=== PATIENT | female | born 1935 | race Caucasian/White ===

== ENCOUNTER 2016-11-25 11:09 | Observation (INO) | payer MEDICARE ==
--- NOTE | 2016-11-25 14:58 | RAD ---
HISTORY: Weakness COMPARISONS: April 10, 2014 VIEWS:1: Single frontal portable view of the chest at 2:46 PM FINDINGS: LINES AND TUBES: None. CARDIOMEDIASTINAL SILHOUETTE: The cardiomediastinal silhouette is normal for portable technique. PLEURA: The costophrenic angles are sharp. No pleural abnormalities are noted. LUNG PARENCHYMA: The lungs are clear. ABDOMEN: The upper abdomen is clear. There is no subphrenic gas. BONES AND SOFT TISSUES: No bone or soft tissue abnormalities are noted. IMPRESSION: NO ACTIVE CARDIOPULMONARY DISEASE.
[2016-11-25 15:21] LABS: Hematocrit 41 % (35-47); Hemoglobin 13.6 g/dl (12.0-16.0); Mean Corpuscular HGB Conc 33 g/dl (31-36); Mean Corpuscular Hemoglobin 31 pg (27-31); Mean Corpuscular Volume 93 fL (80-97); Mean Platelet Volume 8 um3 (7.4-10.4); Red Blood Count 4.42 10^6/ul (4.0-5.4); Red Cell Distribution Width 13 % (10.5-15); White Blood Count 7.1 10^3/ul (3.5-10.8)
[2016-11-25 15:27] LABS: Add Diff/Slide Review? Slide Review Added; Comments Flag Yes
[2016-11-25 15:39] LABS: Troponin I 0.01 ng/mL (<0.04)
--- NOTE | 2016-11-25 15:39 | RAD ---
INDICATION: Dizziness COMPARISON: CT brain March 17, 2015 TECHNIQUE: Noncontrast axial source images were acquired from the skull base to the vertex. FINDINGS: Ventricles/sulci: There is cortical atrophy with compensatory dilatation of the CSF spaces. Brain parenchyma: There is periventricular and subcortical white matter change compatible with chronic ischemia. There is a small right basal ganglia lacunar type infarct, unchanged. Intracranial hemorrhage:None. Extra-axial spaces: There are no abnormal extra axial fluid collections or evidence of extra-axial mass. Calvarium: There is no calvarial fracture or other calvarial abnormality. Scalp: There is no evidence of scalp or extracalvarial soft tissue abnormality. Paranasal sinuses/mastoid: The paranasal sinuses and mastoid air cells are clear. Other: None. IMPRESSION: CORTICAL ATROPHY WITH CHRONIC MICROVASCULAR ISCHEMIC CHANGES. NO ACUTE FINDINGS.
[2016-11-25 15:40] LABS: Albumin 4.4 g/dL (3.2-5.2); BUN/Creatinine Ratio 19.3 (8-20); Calcium 10.2 mg/dL (8.6-10.3); EGFR African American 85.3 (>60); EGFR Non-African American 66.3 (>60); Globulin 2.9 g/dL (2-4); Magnesium 1.8 mg/dL (1.9-2.7); Potassium 4.2 mmol/L (3.5-5.0); Total Protein 7.3 g/dL (6.4-8.9)
[2016-11-25 15:52] LABS: Urine Bacteria 3+ (Absent); Urine Bilirubin Negative (Negative); Urine Glucose Negative (Negative); Urine Nitrite Negative (Negative)
[2016-11-25 16:00] LABS: TSH (Thyroid Stimulating Horm) 0.18 mcIU/mL (0.34-5.60)
[2016-11-25] MEDS ORDERED: NS 0.9% 1000 ML*IV.FLUID IV ONE (16:06)
[2016-11-25] MEDS ORDERED: traZODone TAB* 50 MG TAB PO PRN (17:11)
[2016-11-25 17:48] LABS: Free T4 1.42 ng/dL (0.61-1.12)
--- NOTE | 2016-11-25 18:01 | ED ---
Travis Valle Billy, scribed for Juan Alberto Branch MD on 11/25/16 at 1446 . Dizziness - HPI Summary HPI Summary: Patient is a 81 year-old female coming to [facility] complaining that she "just does not feel like" herself since yesterday afternoon. She was running errands around the house during the onset of her symptoms. She complains of fatigue and dizziness/lightheadedness. Denies any chest pain, palpitations, or SOB. Denies any black/tarry stools or hematemesis. - History Of Current Complaint Chief Complaint: EDDizziness Stated Complaint: LIGHT HEADED , HIGH BLOOD PRESSURE Time Seen by Provider: 11/25/16 14:40 Hx Obtained From: Patient Timing: Constant Severity Initially: Moderate Severity Currently: Moderate Character: Lightheaded, Dizzy Aggravating Factor(s): Nothing Alleviating Factor(s): Nothing Associated Signs And Symptoms: Negative: Chest Pain, SOB, Palpitations - Allergies/Home Medications Allergies/Adverse Reactions: Allergies Allergy/AdvReac Type Severity Reaction Status Date / Time Meperidine [From Demerol HCl] Allergy Agitation Verified 03/17/15 10:05 Penicillins Allergy Difficulty Verified 03/17/15 10:05 Breathing Red Dye Allergy Hives Verified 03/17/15 10:05 Sulfa Drugs Allergy Hives Verified 03/17/15 10:05 Home Medications: Home Medications Alendronate (NF) [Fosamax (NF)] 70 mg PO WEEKLY 11/25/16 [History Confirmed ] Atorvastatin* [Lipitor*] 40 mg PO DAILY 11/25/16 [History Confirmed 11/25/16] Lisinopril TAB* [Prinivil TAB*] 20 mg PO DAILY 11/25/16 [History Confirmed 11/25] Metoprolol Succinate XL TAB* [Toprol XL TAB*] 25 mg PO DAILY 11/25/16 [History Confirmed 11/25/16] Multivitamins/Minerals TAB* [Theragran/minerals TAB*] 1 tab PO DAILY 11/25/16 [ History Confirmed 11/25/16] Omeprazole CAP* [Prilosec CAP* 20 MG] 20 mg PO DAILY 11/25/16 [History Confirmed 11/25/16] amLODIPine TAB* [Norvasc 5 mg TAB*] 5 mg PO DAILY 11/25/16 [History Confirmed ] traZODone TAB* [Desyrel TAB*] 50 mg PO BEDTIME PRN 11/25/16 [History Confirmed 11/25/16] PMH/Surg Hx/FS Hx/Imm Hx Endocrine/Hematology History: Reports: Hx Thyroid Disease - hypothyroid Denies: Hx Anticoagulant Therapy, Hx Diabetes, Hx Systemic Lupus Erythematosus Cardiovascular History: Reports: Other Cardiovascular Problems/Disorders - low blood pressure Denies: Hx Congestive Heart Failure, Hx Hypertension, Hx Pacemaker/ICD Respiratory History: Denies: Hx Asthma, Hx Chronic Obstructive Pulmonary Disease (COPD) GI History: Reports: Hx Gastroesophageal Reflux Disease, Other GI Disorders - diverticulitis, GERD, BENIGN NEOPLASM COLON,APPENDICITIS History: Reports: Hx Kidney Stones, Other Problems/Disorders - URETERAL sling per pt. 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 Mother with ovarian cancer. - Social History Alcohol Use: Rare Substance Use Type: Reports: None Smoking Status (MU): Never Smoked Tobacco Review of Systems Positive: Fatigue Negative: Palpitations, Chest Pain Negative: Shortness Of Breath Neurological: Other - dizziness, lightheaded All Other Systems Reviewed And Are Negative: Yes Physical Exam Triage Information Reviewed: Yes Vital Signs On Initial Exam: Initial Vitals Temp Pulse Resp BP Pulse Ox 97.8 F 98 18 176/76 98 11/25/16 11:10 11/25/16 11:10 11/25/16 11:10 11/25/16 11:10 11/25/16 11:10 Vital Signs Reviewed: Yes Appearance: Positive: Well-Appearing, No Pain Distress Skin: Positive: Warm Head/Face: Positive: Normal Head/Face Inspection ENT: Positive: Normal ENT inspection Neck: Positive: Supple, Nontender Respiratory/Lung Sounds: Positive: Clear to Auscultation, Breath Sounds Present Cardiovascular: Positive: Normal, RRR. Negative: Murmur Abdomen Description: Positive: Nontender Musculoskeletal: Positive: Normal, Strength/ROM Intact Neurological: Positive: Normal, Sensory/Motor Intact, Alert, Oriented to Person Place, Time, CN Intact II-III Diagnostics - Vital Signs Vital Signs Temp Pulse Resp BP Pulse Ox 11/25/16 13:00 97.7 F 86 14 144/61 99 11/25/16 11:10 97.8 F 98 18 176/76 98 - Laboratory Result Diagrams: 11/25/16 15:10 11/25/16 15:10 Lab Statement: Any lab studies that have been ordered have been reviewed, and results considered in the medical decision making process. - Radiology CXR Xray Interpretation: No Acute Changes Radiology Interpretation Completed By: Radiologist - CT brain CT Interpretation Completed By: Radiologist - CORTICAL ATROPHY WITH CHRONIC MICROVASCULAR ISCHEMIC CHANGES. NO ACUTE FINDINGS. - EKG 1125 EKG Interpretation: NSR 99 bpm, LBBB EKG Comparison: Other - new LBBB compared to 03/17/15 Dizzy Course/Dx - Course Course Of Treatment: 81 yr old with dizziness, and new LBBB. She has not had CP or SOB or palpitations. Onset of symptoms a day ago. Await hospitalist for admission. - Diagnoses Provider Diagnoses: Dizziness, Left bundle branch block (LBBB) on electrocardiogram Discharge - Discharge Plan Condition: Stable Disposition: ADMITTED TO [facility] The documentation as recorded by the Travis leyva Billy accurately reflects the service I personally performed and the decisions made by , Juan Alberto Branch MD.
[2016-11-25 18:50] LABS: Total T3 1.24 ng/mL (0.87-1.78)
--- NOTE | 2016-11-25 20:18 | HP ---
HISTORY AND PHYSICAL: DATE OF ADMISSION: 11/25/16 TIME OF EVALUATION: 4:45 p.m. PRIMARY CARE PHYSICIAN: Dr. Aquino. DIGITAL COMMUNICATIONS MANAGER: Dr. Bryan. CHIEF COMPLAINT: Tremors. HISTORY OF PRESENT ILLNESS: Ms. Pacheco is a 81-year-old lady with past medical history of hypertension, hyperlipidemia, hypothyroidism, GERD, diverticulitis, duodenal ulcers that presented to the emergency room with complaints of not feeling well. She states that last night she tried to go to bed and she was feeling anxious and her body was not "working right." She was shaky and did not sleep well. She woke up this morning, measured her blood pressure and the systolic was in the 170s and her heart rate was 110. She was still feeling shaky. She went to have breakfast and this sensation of not feeling well persisted. She denies chest pain or shortness of breath. She denies fever, chills, sore throat, cough, shortness of breath, urinary complaints. She did have some diarrhea last night and this morning, what is unusual for her. The patient states that 2 months ago, Dr. Aquino increased her levothyroxine dose from 88 to 100 mcg and he also recommended she lose some weight and she has lost 15 pounds, although she is saying she did not change her diet that much to justify all the weight loss. She states Dr. Bryan told her she has a "leaky valve" and she does not need surgery at this point. He is just planning to follow her up. The last echo was during the fall. PAST MEDICAL HISTORY: 1. Hypertension. 2. Hyperlipidemia. 3. GERD. 4. Hyperthyroidism. 5. Diverticulosis. 6. Duodenal ulcer. MEDICATIONS: 1. Alendronate 70 mg p.o. weekly. 2. Amlodipine 5 mg p.o. daily. 3. Aspirin 81 mg p.o. daily. 4. Atorvastatin 40 mg p.o. daily. 5. Levothyroxine 100 mcg p.o. daily. 6. Lisinopril 20 mg p.o. daily. 7. Metoprolol succinate 25 mg p.o. daily. 8. Multivitamin 1 tablet p.o. b.i.d. 9. Omeprazole 20 mg p.o. daily. 10. Trazodone 50 mg p.o. at bedtime as needed for insomnia. ALLERGIES: With MEPERIDINE, the patient had agitation. With PENICILLIN, she had difficulty breathing. With RED DYE and SULFA, she had hives. FAMILY HISTORY: The patient's mother in her 90s of renal failure. Father in his 80s with history of coronary artery disease, status post CABG and he also had brain tumor. She has 2 sisters and 2 brothers that are alive and well. SOCIAL HISTORY: There is no history of tobacco, alcohol or drug use. Surrogate decision maker is her daughter, Chelly Beverly, phone number is [phone]. REVIEW OF SYSTEMS: A 14-point review of systems was performed and all the pertinent negative and positive findings are in the HPI. PHYSICAL EXAMINATION GENERAL: The patient is a pleasant elderly lady, sitting up in the ED stretcher , in no acute distress. VITAL SIGNS: Temperature 98.4, heart rate is 81, respiratory rate 18, oxygen saturation 92% on room air, blood pressure is 151/50. HEENT: Pupils are equal. Moist mucous membranes. CHEST: Breath sounds present bilaterally. No added sounds. CVS: Normal S1, S2. Regular rate and rhythm. ABDOMEN: Soft, nontender. Bowel sounds are present. EXTREMITIES: No edema. NEUROLOGIC: She is alert, awake and oriented x3. She is able to move all 4 extremities. LABORATORY AND IMAGING DATA: The patient had a CBC that was unremarkable except for lymphopenia 13.1, 3.4% basophils. INR is 0.98. Chemistry showed a low chloride of 100, glucose of 104, magnesium 4.8, and her TSH was 0.18. Urinalysis showed 1+ LE with squamous epithelial cells present and 3+ bacteria. Chest x-ray showed no active cardiopulmonary disease. Her EKG showed sinus rhythm at 99 beats per minute with left bundle branch block and this left bundle branch block is new when compared to her prior EKG from March 2015. ASSESSMENT AND PLAN: Ms. Pacheco is a 81-year-old lady with past medical history of hypertension, hyperlipidemia, gastroesophageal reflux disease, hypothyroidism, diverticulosis, duodenal ulcers who presented to the emergency room with complaints of tremors, high blood pressure, tachycardia, diarrhea, weight loss in the setting of recent increase of her thyroid medication. 1. Hyperthyroidism. I believe her symptoms are secondary to medication- induced hyperthyroidism. I am going to check her free T4 and T3 levels and the plan is to decrease her levothyroxine to 88 mcg. 2. New EKG changes. The changes are new but compared to an EKG from 2 years ago. She will be observed in telemetry and I am going to obtain records from Dr. Bryan, but I believe this left bundle branch has been present before. She will be admitted as observation to the CDU, so we can make further decisions , but I believe she will probably be discharged earlier tomorrow morning. 3. Hypertension. We will continue metoprolol, amlodipine, lisinopril. 4. Hyperlipidemia. We will continue atorvastatin. 5. History of duodenal ulcer. We will continue omeprazole. 6. DVT prophylaxis. The patient has a score of 3 on the DVT Prophylaxis Risk Assessment Guide and she will be started on subcutaneous heparin. 7. Code status is full. TIME SPENT: Approximately 50 minutes were spent with the patient and family interview, medical records review, physical examination to complete this admission, more than half the time was spent [id number] with the patient in coordination of care. CC: Dr. Aquino; Dr. Bryan* [id number] #: [id number] MTDD
[2016-11-25] MEDS ORDERED: CALCIUM PO SCH (21:00)
[2016-11-25] MEDS ORDERED: MULTIPLE VITAMINS PO SCH (21:00)
[2016-11-25] MEDS: Heparin VIAL(*) 5000 UNITS/ML VIAL (FIVE THOUSAND) SUBCUT SCH (22:05)
[2016-11-26] MEDS ORDERED: Acetaminophen TAB* 325 MG PO PRN (01:52)
[2016-11-26] MEDS: Heparin VIAL(*) 5000 UNITS/ML VIAL (FIVE THOUSAND) SUBCUT SCH (05:51)
[2016-11-26] MEDS ORDERED: Levothyroxine TAB* 88 MCG TAB PO SCH (06:00)
[2016-11-26] MEDS ORDERED: Omeprazole CAP* 20 MG PO SCH (07:30)
[2016-11-26 08:11] VITALS: BP 148/56
[2016-11-26] MEDS ORDERED: Lisinopril TAB* 10 MG PO SCH (09:00)
[2016-11-26] MEDS ORDERED: Aspirin Low Dose CHEW TAB* 81 MG PO SCH (09:00)
[2016-11-26] MEDS ORDERED: Metoprolol Succinate XL TAB* 25 MG PO SCH (09:00)
[2016-11-26] MEDS ORDERED: Multivitamins ADULT w/MIN LIQ* 15 ML UDC PO SCH (09:00)
[2016-11-26] MEDS ORDERED: amLODIPine TAB* 5 MG PO SCH (09:00)
[2016-11-26] MEDS ORDERED: Atorvastatin* 40 MG TAB PO SCH (09:00)
--- NOTE | 2016-11-27 16:29 | DS ---
CC: Pedro Aquino MD; PEDRO Diane DISCHARGE SUMMARY: DATE OF ADMISSION: 11/25/16 DATE OF DISCHARGE: 11/26/16 PRIMARY CARE PROVIDER: Pedro Aquino MD NON LINEAR EDITOR: PEDRO Diane. DISCHARGE DIAGNOSIS: Medication induced hyperthyroidism. SECONDARY DIAGNOSES: 1. Hypertension. 2. Hyperlipidemia. 3. Gastroesophageal reflux disease. 4. Prior history of Graves' disease. 5. Diverticulosis. 6. Duodenal ulcer. 7. Left bundle branch block. 8. Benign colonic polyps. 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 10. Osteoporosis. 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 12. Moderate aortic insufficiency. MEDICATION LIST: 1. Trazodone 50 mg p.o. bedtime as needed for insomnia. 2. Omeprazole 20 mg p.o. daily. 3. Lisinopril 20 mg p.o. daily. 4. Multivitamin 1 tablet p.o. daily. 5. Multivitamin with calcium 1 tablet chew twice a day. 6. Atorvastatin 20 mg p.o. daily. 7. Aspirin 81 mg p.o. daily. 8. Amlodipine 5 mg p.o. daily. 9. Alendronate 70 mg p.o. weekly. 10. Metoprolol succinate 25 mg p.o. daily. MEDICATION CHANGE: Levothyroxine dose was decreased from 100 to 88 mg daily. HOSPITAL COURSE: Mrs. Pacheco is a 81-year-old lady with past medical history as stated above that p resented to the emergency room on November 25 with complaints of not feeling well, palpitations, and tremors. For more details of our presentation, I refer to her history and physical. The impression was that her symptoms were likely associated with medication induced hyperthyroidism as her Synthroid dose had been increased recently. Her TSH was low at 0.18, free T4 was elevated at 1.42 and total T3 was normal at 1.24. The plan is to decrease her levothyroxine dose to 88 mcg and to repeat her thyroid function tests in four weeks to see if her dose still needs more adjustment. The patient was found to have a "new" left bundle branch block when compared to her last EKG on our system in 2014. We obtained records from Dr. Meza's office and actually this left bundle bran ch block had been present since 2016. His note states that the patient had an intermittent incomple te LBB in the past and given that she was completely asymptomatic and had evidence of a gradual prog ression with no decline in LV function or regional wall motion abnormalities on echo. He did not be lieve that she needed evaluation for an ischemic cause of her left bundle branch block. He left quin t the best management would be to continue to monitor her symptoms and echo and presume that this is age related conduction system disease. The patient had improvement of her symptoms overnight. Her heart rate was in the 60s after receiving her metoprolol and she felt well enough to go home to [facility] with Dr. Aquino as outpatient. PHYSICAL EXAMINATION: Vital Signs: Temperature 97.8, heart rate is 71, respiratory rate is 18, oxy gen saturation is 92% on room air, blood pressure is 148/66. General: The patient is a pleasant [place] lady sitting up in bed in no acute distress. CVS: Normal S1, S2. Regular rate and rhythm. Chest: Breath sounds bilaterally, no added sounds. Extremities: No edema. Neuro: She is alert, awake, oriented x3, able to move all 4 extremities. DIET: Heart healthy diet. ACTIVITY: As tolerated. DISPOSITION: To home. STATUS WHILE IN THE HOSPITAL: Observation. Please keep in mind that this is a summarized version of this patient complex hospital stay. If you need more information, please feel free to call me at or please obtain the full medic al records. TIME SPENT: Approximately 45 minutes was spent to complete this discharge. [id number]/[facility] #: [id number]
== END 2016-11-26 10:27 | disposition home or self-care (01) ==
LOC: ED 11:09 → MEDTELE 17:05
PROVIDERS: ADMIT Internal Medicine; ATTEND Internal Medicine
DX: E05.80 Other thyrotoxicosis without thyrotoxic crisis or storm (principal); T38.1X5A Adverse effect of thyroid hormones and substitutes, initial encounter; Y92.9 Unspecified place or not applicable; I10 Essential (primary) hypertension; E78.5 Hyperlipidemia, unspecified; K21.9 Gastro-esophageal reflux disease without esophagitis; K57.90 Diverticulosis of intestine, part unspecified, without perforation or abscess without bleeding; I44.7 Left bundle-branch block, unspecified; Z86.010 Personal history of colon polyps; M81.0 Age-related osteoporosis without current pathological fracture; I35.1 Nonrheumatic aortic (valve) insufficiency; Z79.82 Long term (current) use of aspirin; Z79.899 Other long term (current) drug therapy; Z88.0 Allergy status to penicillin; Z88.2 Allergy status to sulfonamides; Z88.8 Allergy status to other drugs, medicaments and biological substances
CPT/HCPCS: 36415; 70450; 71010; 80053; 81003; 81015; 83605; 83735; 84439; 84443; 84479; 84484; 85025; 85610; 87086; 93005; 96360; 96372; 99283; A9270-GY; G0378; J1644

== ENCOUNTER 2017-09-17 10:57 | Observation (INO) | payer MEDICARE ==
[2017-09-17] MEDS ORDERED: NS 0.9% 1000 ML* 1,000 ML IV ONE (12:17)
[2017-09-17 13:17] LABS: Urine Appearance Clear; Urine Blood 1+ (Negative); Urine Color Yellow; Urine Ketones Negative (Negative); Urine Protein Negative (Negative); Urine Specific Gravity 1.005 (1.010-1.030); Urine Urobilinogen Negative (Negative)
[2017-09-17 13:30] LABS: ABS Basophils 0.1 10^3/ul (0-0.2); ABS Eosinophils 0.1 10^3/ul (0-0.6); ABS Lymphocytes 1.8 10^3/ul (1.0-4.8); ABS Monocytes 1.1 10^3/ul (0-0.8); ABS Neutrophils 8.6 10^3/ul (1.5-7.7); ABS Nucleated RBC 0 10^3/ul; Eosinophil % 0.7 % (0-6); Hematocrit 38 % (35-47); Hemoglobin 12.6 g/dl (12.0-16.0); Lymphocyte % 15.4 % (25-47); Mean Corpuscular HGB Conc 33 g/dl (31-36); Mean Corpuscular Hemoglobin 31 pg (27-31); Mean Corpuscular Volume 93 fL (80-97); Mean Platelet Volume 8 um3 (7.4-10.4); Nucleated Red Blood Cells % 0; Platelet Count 156 10^3/ul (150-450); Red Cell Distribution Width 12 % (10.5-15); White Blood Count 11.5 10^3/ul (3.5-10.8)
[2017-09-17 13:37] LABS: EGFR Non-African American 57.3 (>60)
--- NOTE | 2017-09-17 13:40 | RAD ---
Indication: RIGHT lower quadrant abdominal pain last night. Post appendectomy. History of diverticulitis. Post cholecystectomy. Post ureteral sling. Comparison: November 03, 2013 CT Technique: Supine and upright views of the abdomen. Report: No radiographic evidence for free air. Unremarkable bowel gas pattern. Small volume of stool present within the colon. Negative for significant rectal distention with stool. Gallbladder fossa level surgical clips. Pelvic phleboliths noted. No suspicious calcifications. Unremarkable soft tissue contours without suggestion of mass effect. IMPRESSION: No acute abdominal pelvic pathologic process evident.
--- NOTE | 2017-09-17 14:10 | RAD ---
INDICATION: RIGHT flank pain. Hematuria. Post appendectomy, cholecystectomy, ureteral sling. COMPARISON: November 03, 2013 CT. TECHNIQUE: Multidetector CT images were obtained from the lung bases to the ischial tuberosities. Evaluation of the viscera is limited without IV contrast. Multiplanar reformation. REPORT: Mild bibasilar interstitial fibrosis/honeycombing increased over the prior exam. Post cholecystectomy. Unremarkable unenhanced liver. Moderately atrophic pancreas without suspicious finding. Unremarkable spleen. Negative for CT abnormality of the upper GI or small bowel. The appendix is not visualized consistent with surgical history. Severe colonic diverticulosis at the sigmoid colon. Mural thickening and perienteric inflammatory change at the distal sigmoid colon consistent with acute diverticulitis. No extra enteric gas or perienteric abscess collection evident. Only trace free fluid along the LEFT pelvic sidewall. Negative for free air or significant hernias. Normal adrenal glands. Unremarkable kidneys. Negative for urolithiasis or hydronephrosis. Unremarkable nondilated ureters. Phleboliths noted adjacent to the distal ureters. Unremarkable distended urinary bladder as well as the uterus and adnexal regions. Negative for lymphadenopathy. Atherosclerotic plaque of normal diameter abdominal aorta and iliac arteries. High burden of calcific plaque at the proximal renal arteries. Largely decompressed IVC indicating low volume state. 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 Negative for fracture. IMPRESSION: 1. The constellation of findings is most consistent with acute diverticulitis of the sigmoid colon. Negative for associated perienteric abscess collection or resulting bowel obstruction. CT or colonoscopy follow-up after therapy suggested to assess for resolution and exclude an underlying colon carcinoma. 2. Negative for obstructive uropathy. 3. Mild bibasilar interstitial fibrosis/honeycombing increased over the prior exam.
[2017-09-17] MEDS ORDERED: Ciprofloxacin 400MG IVPREMIX(* 400 MG/200 ML BAG IVPB ONE (14:38)
[2017-09-17] MEDS ORDERED: metroNIDAZOLE IV 500 MG/100ML* 500 MG/100 ML BAG IVPB ONE (14:40)
[2017-09-17] MEDS ORDERED: Ondansetron INJ* 2 MG/ML VIAL IV PRN (15:29)
[2017-09-17] MEDS ORDERED: Ketorolac INJ* 15 MG/ML 1 ML VIAL IV PUSH PRN (15:29)
[2017-09-17] MEDS: Acetaminophen TAB* 325 MG PO PRN (17:34)
[2017-09-17] MEDS: Heparin VIAL(*) 5000 UNITS/ML VIAL (FIVE THOUSAND) SUBCUT SCH (21:06)
--- NOTE | 2017-09-17 22:12 | HP ---
CC: Dr. Aquino; Dr. Harding * HISTORY AND PHYSICAL: DATE OF ADMISSION: 09/17/17 PRIMARY CARE PROVIDER: Dr. Aquino. MY ATTENDING WHILE IN THE HOSPITAL: Dr. Louise Infante.* (DICTATED BY PEDRO HARRINGTON) OUTPATIENT PRINTED CIRCUIT LAYOUT TAPER: Darleen Dueñas. CHIEF COMPLAINT: Severe abdominal pain x1 day. HISTORY OF PRESENT ILLNESS: Ms. Pacheco is an 82-year-old female with past medical history significant for hypertension; hyperlipidemia; GERD; diverticulitis; duodenal ulcer; Graves' disease, status post radioactive iodine ; known pancreatic tail cyst, who presents with 1 day of severe abdominal pain in her right upper quadrant radiating down to her suprapubic area and her groin. The patient states that she went out to dinner on , 09/15/17, and felt fine, then in the evening of 09/16/17, the patient was not feeling very good, with general malaise. The patient denies fevers, chills, discrete nausea, or vomiting. The patient had worsening pain in her abdomen without acute onset, not affected by food, no palliating factors, unresponsive to heat, worse with movements especially sudden jolts. The patient had no diarrhea. The patient had diarrhea 2 days ago for a couple of episodes but it resolved by itself without incident. There was no blood in her stool. The patient describes the pain as today stabbing, burning pain that radiates from her right upper quadrant to above her pubic bone and then to her back. The patient denies any recent changes in her diet or fluid intake. The patient states this feels somewhat like her previous episode of diverticulitis. The patient has not taken any medications to help relieve the pain. The patient has not had any sick contacts. The patient feels chilled at the moment but denies any fevers and took her temperature at home and it was not elevated. The patient came to the emergency department due to extreme pain. The patient' s pain is now 5/10 down from 10/10 at its worst. The patient denies chest pain , shortness of breath, or other associated symptoms. The patient was found to have diverticulitis on CT exam while in the hospital and we were asked to evaluate for admission. PAST MEDICAL HISTORY: Hypertension; hyperlipidemia; GERD; diverticulitis; duodenal ulcer; hypothyroidism, status post radioactive iodine, now hypothyroid ; left bundle branch block; moderate aortic insufficiency; pancreatic mass. PAST SURGICAL HISTORY: No past surgeries. MEDICATIONS: 1. Aspirin 81 mg p.o. daily. 2. Lipitor 40 mg p.o. daily. 3. Norvasc 5 mg p.o. daily. 4. Fosamax 70 mg p.o. weekly. 5. Metoprolol 37.5 mg daily. 6. Omeprazole 20 mg p.o. daily. 7. Lisinopril 20 mg p.o. daily. 8. Multivitamin. 9. Levothyroxine 88 mcg p.o. daily. 10. Torsemide 5 mg p.o. as needed for leg swelling. ALLERGIES: MEPERIDINE, PENICILLIN, RED DYE, SULFA. FAMILY HISTORY: The patient's mother in her 90s from kidney failure. The patient's father in his 80s from coronary artery disease, he also had a CABG and malignant brain tumor. The patient has 4 siblings that are alive and well. SOCIAL HISTORY: The patient smoked in her remote past and cannot quantify the amount. The patient does not drink alcohol. There are no illicit drugs. 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 The patient is , has a current significant other, whom she lives with. The patient has 1 child, Chelly Beverly, who is her healthcare proxy. REVIEW OF SYSTEMS: A 14-point review of systems was reviewed and is negative except as the above. PHYSICAL EXAMINATION GENERAL: The patient is an 82-year-old female, who appears younger than stated age, is sitting in bed comfortably, in no acute distress. VITAL SIGNS: Upon arrival to the emergency department, temperature 98.4, pulse rate 79, respiratory rate 16, oxygen saturation 95% on room air, blood pressure 173/69. HEENT: Head: Normocephalic, atraumatic. Sclerae anicteric. No conjunctival injection. Nasal mucosa is moist. Oral mucosa moist. No pharyngeal erythema, discharge, or exudates. NECK: Supple, nontender. No lymphadenopathy. No carotid bruits auscultated. RESPIRATORY: Clear to auscultation bilaterally. No wheezes, rales, or rhonchi. Good air exchange bilaterally. CARDIAC: Regular rate and rhythm. No clicks, murmurs, gallops, or rubs. Murmur of aortic insufficiency not appreciated. ABDOMEN: Soft. Tenderness to palpation in the right upper and lower quadrants as well as the suprapubic area without rebound. No referred rebound. Rovsing sign negative. No hepatosplenomegaly. No abdominal bruits auscultated. NEURO: Cranial nerves II through XII intact. Strength preserved in the upper and lower extremities distally and proximally. Alert and oriented x3. PSYCHIATRIC: Very pleasant and cooperative. SKIN: Clean, dry, intact. No rash. DIAGNOSTIC STUDIES/LAB DATA: White blood cell count 11.5, hemoglobin 12.6, hematocrit 38, platelet count 156. Sodium 133, potassium 4.0, chloride 101, carbon dioxide 24, anion gap 8, BUN 17, creatinine 0.94, glucose 112, calcium 9.1. Total bilirubin 1.2, AST 20, ALT 19, alkaline phosphatase 36. Protein 6.7 , albumin 4.0, globulin 2.7, lipase 13. Urine: Color yellow, clear, +1 blood, +1 leukocyte esterase, urine squamous epithelial cells present, +3 urine bacteria. Abdomen x-ray read as no acute abdominopelvic process present. Abdominal and pelvis CT read as a constellation of findings most consistent with acute diverticulitis of the sigmoid colon, negative for associated peritoneal abscess, question resulting bowel obstruction. CT or colonoscopy suggested to confirm successful resolution to exclude underlying colon carcinoma , negative for obstructive uropathy, mild basilar interstitial fibrosis/ honeycombing increased from the previous exam. ASSESSMENT AND PLAN: Impression: The patient is an 82-year-old female with past medical history significant for diverticulitis, duodenal ulcers, hypertension, hyperlipidemia, and gastroesophageal reflux disease, who presents with abdominal pain and was found to have diverticulitis on abdominal CT exam. The patient will be admitted to observation to the hospital for IV antibiotics, bowel rest, and supportive care. 1. Mild diverticulitis. The patient has no nausea, vomiting, or obstruction associated with it. The patient has no fevers. The patient has mild leukocytosis. The patient has no other significant abnormalities on laboratory studies. The patient, however, is 82 years old with significant medical comorbidities. The patient will have blood cultures drawn and will be started on IV antibiotic of ciprofloxacin 400 mg p.o. b.i.d. and metronidazole 500 mg p.o. b.i.d. The patient will have Tylenol and Toradol for pain control. Continue the patient's home medications while in the hospital. The patient will have clear liquid diet. 2. Hypertension. The patient currently has mildly elevated high blood pressure. The patient is receiving fluids. We will not give anymore fluids and continue to monitor before adjusting the patient's blood pressure medications. The patient has no symptoms of hypertensive urgency or emergency at this time. 3. Hyperlipidemia. Continue the patient's statin. 4. Gastroesophageal reflux disease. Continue omeprazole. 5. Duodenal ulcer. The patient has no evidence of duodenal ulcer on either clinically or abdomen CT. Continue omeprazole. 6. Hypothyroidism. Continue levothyroxine at home dose. 7. FEN. The patient will have a clear liquid diet for bowel rest, advance as tolerated. Due to the patient's leg swelling and hypertension, we will discontinue the patient's fluids after the 1 L she received in the emergency department. 8. Code status. The patient is a full code. The patient would like to discuss being a DNR with her daughter when she comes in. 9. DVT prophylaxis. The patient is a high-risk patient, will have heparin subcu while in the hospital. 10. Disposition. The patient is admitted to observation. Estimated length of stay less than 2 midnights. TIME SPENT: Approximately 60 minutes was spent on this admission, 30 of which was spent [id number] with the patient obtaining history and physical and discussing treatment plan. This plan has been discussed with my attending physician, Dr. Lousie Infante, and she is in agreement. PEDRO HARRINGTON [id number]/[facility] #: [id number] ANDREA
[2017-09-18] MEDS: Acetaminophen TAB* 325 MG PO PRN (03:11)
[2017-09-18] MEDS ORDERED: metroNIDAZOLE IV 500 MG/100ML* 500 MG/100 ML BAG IVPB SCH (03:30)
[2017-09-18] MEDS ORDERED: Ciprofloxacin 400MG IVPREMIX(* 400 MG/200 ML BAG IVPB SCH (04:30)
[2017-09-18] MEDS: Heparin VIAL(*) 5000 UNITS/ML VIAL (FIVE THOUSAND) SUBCUT SCH (05:39)
[2017-09-18] MEDS ORDERED: Levothyroxine TAB* 88 MCG TAB PO SCH (06:00)
[2017-09-18] MEDS ORDERED: Omeprazole CAP* 20 MG PO SCH (07:30)
[2017-09-18] MEDS ORDERED: Lisinopril TAB* 10 MG PO SCH (09:00)
[2017-09-18] MEDS ORDERED: Metoprolol Succinate XL TAB* 25 MG PO SCH (09:00)
[2017-09-18] MEDS ORDERED: Aspirin Low Dose CHEW TAB* 81 MG PO SCH (09:00)
[2017-09-18] MEDS ORDERED: amLODIPine TAB* 5 MG PO SCH (09:00)
[2017-09-18] MEDS ORDERED: Atorvastatin* 40 MG TAB PO SCH (09:00)
[2017-09-18 12:16] VITALS: BP 127/59
--- NOTE | 2017-09-19 07:01 | DS ---
CC: Dr. Harding; Dr. Aquino * DISCHARGE SUMMARY: DATE OF ADMISSION: 09/17/17 DATE OF DISCHARGE: 09/18/17 PRIMARY CARE PROVIDER: Dr. Aquino. DISCHARGE DIAGNOSIS: Acute diverticulitis. SECONDARY DIAGNOSES: 1. Episode of diverticulitis in the past x1. 2. History of hypertension. 3. Hyperlipidemia. 4. Gastroesophageal reflux disease. 5. History of duodenal ulcer. 6. Hypothyroidism. 7. History of left bundle-branch block. 8. History of moderate aortic insufficiency. 9. History of pancreatic mass. MEDICATIONS AT DISCHARGE: Include: 1. Ciprofloxacin 500 mg b.i.d. for 10 days total. 2. Flagyl 500 mg 3 times a day for 10 days total. 3. Fosamax 70 mg weekly. 4. Norvasc 5 mg daily. 5. Aspirin 81 mg daily. 6. Lipitor 40 mg daily. 7. Levothyroxine 88 mcg daily. 8. Prinivil 20 mg daily. 9. Metoprolol succinate 37.5 mg daily. 10. Multivitamin 1 tablet daily. 11. Prilosec 20 mg daily. 12. Demadex 5 mg daily p.r.n. LABORATORY DATA AND STUDIES PERFORMED DURING THE HOSPITAL STAY: Included CT of the abdomen and pelvis obtained at admission, impression: "The constellation of findings are most consistent with acute diverticulitis of the sigmoid colon. Negative for associated perienteric abscess collection resulting in bowel obstruction. CT and colonoscopy followup after therapy to r/o underlying colon carcinoma recommended. Negative for obstructive uropathy. Mild bibasilar interstitial fibrosis/honeycombing increased over the prior exam." PHYSICAL EXAM AT THE TIME OF DISCHARGE: Blood pressure 127/59, heart rate of 81 , respiratory rate 18, oxygen saturation 92% on room air, temperature 97.9. General: This is a very pleasant 82-year-old female who is in no acute distress. Alert, awake, and oriented x3. HEENT: Head: Atraumatic, normocephalic. Eyes: Pupils are equal and reactive to light and accommodation. Oropharynx clear. Mucosa moist. Neck: Supple. No JVD, no bruit bilaterally. Cardiovascular: Regular rate and rhythm. No murmur. Respiratory: Clear to auscultation bilaterally. Abdomen: Soft, minimally tender in the right lower quadrant with no rebound, no guarding. Bowel sounds present in all four quadrants. Extremities: There is no edema. Pulses +2 bilaterally. No clubbing or cyanosis. On neuro evaluation, speech clear. Cranial nerves II through XII grossly intact. Motor strength is 5/5 bilaterally. At discharge, the patient is recommended to follow up with Dr. Aquino in approximately 4 to 7 days and follow up with patient's mule tender within the next month. Patient's mule tender is Dr. Harding from [facility]. [id number]/[facility] #: [id number] [facility] CENTERCasimiro
== END 2017-09-18 13:05 | disposition home or self-care (01) ==
LOC: ED 10:57 → MED 16:24
PROVIDERS: ADMIT Internal Medicine; ATTEND Internal Medicine
DX: K57.92 Diverticulitis of intestine, part unspecified, without perforation or abscess without bleeding (principal); Z86.79 Personal history of other diseases of the circulatory system; E78.5 Hyperlipidemia, unspecified; K21.9 Gastro-esophageal reflux disease without esophagitis; Z87.11 Personal history of peptic ulcer disease; E03.9 Hypothyroidism, unspecified; I44.7 Left bundle-branch block, unspecified; Z85.07 Personal history of malignant neoplasm of pancreas; Z79.82 Long term (current) use of aspirin
CPT/HCPCS: 36415; 74019; 74176; 80053; 81003; 81015; 83690; 85025; 87040; 87086; 96365; 96366; 99283; A9270-GY; G0378; J0744; J1644; J3490

== ENCOUNTER 2018-05-28 20:18 | Emergency (ER) | payer MEDICARE ==
[2018-05-28] MEDS ORDERED: NS 0.9% 1000 ML* 1,000 ML IV ONE (20:38)
[2018-05-28 21:14] LABS: ABS Basophils 0 10^3/ul (0-0.2); ABS Eosinophils 0 10^3/ul (0-0.6); ABS Lymphocytes 0.7 10^3/ul (1.0-4.8); ABS Monocytes 0.6 10^3/ul (0-0.8); ABS Neutrophils 8.6 10^3/ul (1.5-7.7); ABS Nucleated RBC 0 10^3/ul; Eosinophil % 0.4 % (0-6); Hematocrit 40 % (35-47); Hemoglobin 13.6 g/dl (12.0-16.0); Lymphocyte % 6.8 % (25-47); Mean Corpuscular HGB Conc 34 g/dl (31-36); Mean Corpuscular Hemoglobin 32 pg (27-31); Mean Corpuscular Volume 94 fL (80-97); Mean Platelet Volume 8.4 um3 (7.4-10.4); Nucleated Red Blood Cells % 0; Platelet Count 162 10^3/ul (150-450); Red Blood Count 4.29 10^6/ul (4.00-5.40); Red Cell Distribution Width 13 % (10.5-15); White Blood Count 9.9 10^3/ul (3.5-10.8)
[2018-05-28] MEDS ORDERED: Ondansetron INJ* 2 MG/ML VIAL IV ONE (21:16)
[2018-05-28 21:22] LABS: INR 0.97 (0.77-1.02)
[2018-05-28 21:32] LABS: EGFR Non-African American 57.9 (>60)
--- NOTE | 2018-05-28 21:55 | ED ---
GI/ HPI - HPI Summary HPI Summary: 83-year-old female presents with nausea vomiting diarrhea for the past couple hours. She states she recently came [place] from [place]. No one else is sick. She states felt feverous. She had one episode of chest pain that resolved a couple hours ago. She states that it was a dull pain. She states she's been having left lower quadrant pain. No diarrhea. No recent antibiotic use. She denies any shortness breath. She admits to occasional cough. She denies headache. She states feels really weak. She is able to drink fluids but that she has been having multiple episodes of diarrhea throughout the day. Has history of diverticulitis. Has had appendix and gallbladder removed and has adhesion surgery on her abdomen. Has history of high blood pressure and hypothyroidism. - History of Current Complaint Chief Complaint: EDGeneral Time Seen by Provider: 05/28/18 21:03 Stated Complaint: GENERAL(JUST GOT BACK FROM DR) Pain Intensity: 6 - Allergy/Home Medications Allergies/Adverse Reactions: Allergies Allergy/AdvReac Type Severity Reaction Status Date / Time meperidine [From Demerol] Allergy See Comment Verified 05/28/18 20:25 Penicillins Allergy Difficulty Verified 05/28/18 20:25 Breathing red dye Allergy Hives Verified 05/28/18 20:25 Sulfa (Sulfonamide Allergy Hives Verified 05/28/18 20:25 Antibiotics) PMH/Surg Hx/FS Hx/Imm Hx Endocrine/Hematology History: Reports: Hx Thyroid Disease - hypothyroid Denies: Hx Anticoagulant Therapy, Hx Diabetes, Hx Systemic Lupus Erythematosus Cardiovascular History: Reports: Hx Hypercholesterolemia, Hx Hypertension, Other Cardiovascular Problems/Disorders - [facility] 11/25/16 ADMISSION Denies: Hx Congestive Heart Failure, Hx Pacemaker/ICD Respiratory History: Denies: Hx Asthma, Hx Chronic Obstructive Pulmonary Disease (COPD), Hx Pneumonia GI History: Reports: Hx Gall Bladder Disease, Hx Gastroesophageal Reflux Disease , Other GI Disorders - diverticulitis, GERD, BENIGN NEOPLASM COLON, APPENDICITIS History: Reports: Hx Kidney Stones, Other Problems/Disorders - URETERAL sling per pt. 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 Mother with ovarian cancer. - Social History Alcohol Use: None Substance Use Type: Reports: None Smoking Status (MU): Never Smoked Tobacco Review of Systems Negative: Fever Positive: Chest Pain Positive: Cough. Negative: Shortness Of Breath Positive: Abdominal Pain, Vomiting, Diarrhea, Nausea All Other Systems Reviewed And Are Negative: Yes Physical Exam Triage Information Reviewed: Yes Vital Signs On Initial Exam: Initial Vitals Temp Pulse Resp BP Pulse Ox 99.5 F 97 18 98/63 95 05/28/18 20:21 05/28/18 20:21 05/28/18 20:21 05/28/18 20:21 05/28/18 20:21 Vital Signs Reviewed: Yes Appearance: Positive: Well-Appearing Skin: Positive: Warm, Dry Head/Face: Positive: Normal Head/Face Inspection Eyes: Positive: Normal, Conjunctiva Clear ENT: Positive: Pharynx normal Respiratory/Lung Sounds: Positive: Clear to Auscultation, Breath Sounds Present Cardiovascular: Positive: Normal, RRR Abdomen Description: Positive: Nontender, Soft Bowel Sounds: Positive: Present Musculoskeletal: Positive: Normal Neurological: Positive: Normal Psychiatric: Positive: Normal Diagnostics - Vital Signs Vital Signs Temp Pulse Resp BP Pulse Ox 05/28/18 20:21 99.5 F 97 18 98/63 95 - Laboratory Lab Results: Lab Results 05/28/18 05/28/18 05/28/18 Range/Units 21:07 21:07 21:07 WBC 9.9 (3.5-10.8) 10^3/ul RBC 4.29 (4.00-5.40) 10^6/ul Hgb 13.6 (12.0-16.0) g/dl Hct 40 (35-47) % MCV 94 (80-97) fL MCH 32 H (27-31) pg MCHC 34 (31-36) g/dl RDW 13 (10.5-15) % Plt Count 162 (150-450) 10^3/ul MPV 8.4 (7.4-10.4) um3 Neut % (Auto) 86.1 H (38-83) % Lymph % (Auto) 6.8 L (25-47) % [place] % (Auto) 6.3 (0-7) % Eos % (Auto) 0.4 (0-6) % Baso % (Auto) 0.4 (0-2) % Absolute Neuts (auto) 8.6 H (1.5-7.7) 10^3/ul Absolute Lymphs (auto) 0.7 L (1.0-4.8) 10^3/ul Absolute Monos (auto) 0.6 (0-0.8) 10^3/ul Absolute Eos (auto) 0 (0-0.6) 10^3/ul Absolute Basos (auto) 0 (0-0.2) 10^3/ul Absolute Nucleated RBC 0 10^3/ul Nucleated RBC % 0 INR (Anticoag Therapy) 0.97 (0.77-1.02) APTT 27.8 (26.0-36.3) seconds Sodium 136 (135-145) mmol/L Potassium 4.1 (3.5-5.0) mmol/L Chloride 105 (101-111) mmol/L Carbon Dioxide 20 L (22-32) mmol/L Anion Gap 11 (2-11) mmol/L BUN 22 (6-24) mg/dL Creatinine 0.93 (0.51-0.95) mg/dL Est GFR ( Amer) 70.0 (>60) Est GFR (Non-Af Amer) 57.9 (>60) BUN/Creatinine Ratio 23.7 H (8-20) Glucose 139 H (70-100) mg/dL Lactic Acid (0.5-2.0) mmol/L Calcium 9.3 (8.6-10.3) mg/dL Total Bilirubin 0.80 (0.2-1.0) mg/dL AST 30 (13-39) U/L ALT 31 (7-52) U/L Alkaline Phosphatase 40 (34-104) U/L Troponin I 0.01 (<0.04) ng/mL C-Reactive Protein 8.05 H (<8.01) mg/L Total Protein 7.2 (6.4-8.9) g/dL Albumin 4.2 (3.2-5.2) g/dL Globulin 3.0 (2-4) g/dL Albumin/Globulin Ratio 1.4 (1-3) 05/28/18 Range/Units 21:07 WBC (3.5-10.8) 10^3/ul RBC (4.00-5.40) 10^6/ul Hgb (12.0-16.0) g/dl Hct (35-47) % MCV (80-97) fL MCH (27-31) pg MCHC (31-36) g/dl RDW (10.5-15) % Plt Count (150-450) 10^3/ul MPV (7.4-10.4) um3 Neut % (Auto) (38-83) % Lymph % (Auto) (25-47) % [place] % (Auto) (0-7) % Eos % (Auto) (0-6) % Baso % (Auto) (0-2) % Absolute Neuts (auto) (1.5-7.7) 10^3/ul Absolute Lymphs (auto) (1.0-4.8) 10^3/ul Absolute Monos (auto) (0-0.8) 10^3/ul Absolute Eos (auto) (0-0.6) 10^3/ul Absolute Basos (auto) (0-0.2) 10^3/ul Absolute Nucleated RBC 10^3/ul Nucleated RBC % INR (Anticoag Therapy) (0.77-1.02) APTT (26.0-36.3) seconds Sodium (135-145) mmol/L Potassium (3.5-5.0) mmol/L Chloride (101-111) mmol/L Carbon Dioxide (22-32) mmol/L Anion Gap (2-11) mmol/L BUN (6-24) mg/dL Creatinine (0.51-0.95) mg/dL Est GFR ( Amer) (>60) Est GFR (Non-Af Amer) (>60) BUN/Creatinine Ratio (8-20) Glucose (70-100) mg/dL Lactic Acid 1.9 (0.5-2.0) mmol/L Calcium (8.6-10.3) mg/dL Total Bilirubin (0.2-1.0) mg/dL AST (13-39) U/L ALT (7-52) U/L Alkaline Phosphatase (34-104) U/L Troponin I (<0.04) ng/mL C-Reactive Protein (<8.01) mg/L Total Protein (6.4-8.9) g/dL Albumin (3.2-5.2) g/dL Globulin (2-4) g/dL Albumin/Globulin Ratio (1-3) Result Diagrams: 05/28/18 21:07 05/28/18 21:07 Lab Statement: Any lab studies that have been ordered have been reviewed, and results considered in the medical decision making process. - Radiology chest Xray Interpretation: No Acute Changes Radiology Interpretation Completed By: ED Physician - CT abd CT Interpretation: Positive (See Comments) - IMPRESSION: 1. Moderate diverticulosis without diverticulitis or colitis. 2. No other acute disease seen. As above. CT Interpretation Completed By: Radiologist - EKG No standard instances Cardiac Rate: NL - sinus rhythm, left bundle branch block EKG Rhythm: Sinus Rhythm EKG Interpretation: sinus rhythm, left bundle branch blcok EKG Comparison: No Significant Change Re-Evaluation - Re-Evaluation First Eval Re-Evaluation Time: 22:37 Change: Improved Comment: feeling better after fluids Second Eval Re-Evaluation Time: 01:20 Change: Improved Comment: discussed results waiting for c diff Third Eval Re-Evaluation Time: 02:23 Change: Improved Comment: would like to go home, discussed c diff neg but with recent travel will cover for infectious diarrhea and uti with cipro and flagyl GIGU Course/Dx - Course Course Of Treatment: 83-year-old female presents with nausea vomiting diarrhea for the past couple hours. She states she recently came [place] from the [place]. No one else is sick. She states felt feverous. She had one episode of chest pain that resolved a couple hours ago. She states that it was a dull pain. She states she's been having left lower quadrant pain. No diarrhea. No recent antibiotic use. She denies any shortness breath. She admits to occasional cough. She denies headache. She states feels really weak. She is able to drink fluids but that she has been having multiple episodes of diarrhea throughout the day. Has history of diverticulitis. Has had appendix and gallbladder removed and has adhesion surgery on her abdomen. Has history of high blood pressure and hypothyroidism. On exam lungs clear to auscultation. Abdomen soft nontender. EKG shows sinus rhythm. Chest x-ray is similar to previous. White blood cell count normal. CRP elevated. Troponin negative. urine shows uti. will treat with cipro. CT abd normal. had a foul smelling bm here but placed toliet paper in it. next bm was sent and was negative for c diff. discussed with patient will treat for infection diarrhea with cipro and flagyl for 5 days. told to encourage fluids. discussed if feels weak or not able to keep oral fluids in to return. patient understand and agrees with plan. - Diagnoses Differential Diagnoses - Female: Colitis, Diverticulitis, Urinary Tract Infection Provider Diagnoses: UTI (urinary tract infection), Vomiting and diarrhea Discharge - Sign-Out/Discharge Documenting (check all that apply): Patient Departure - Discharge Plan Condition: Good Disposition: HOME Patient Education Materials: Urinary Tract Infection in Women (ED), Acute Diarrhea (ED) Referrals: Pedro Aquino MD [Primary Care Provider] - Additional Instructions: Take ciprofloxacin twice a day for 5 days, first dose given in ED Take Flagyl twice for 5 days, first dose given in ED When able to eat follow BRAT diet: Bananas, rice, applesauce, toast take probiotic daily follow up with primary within 5 days Return to ED if develop any new or worsening symptoms - Billing Disposition and Condition Condition: GOOD Disposition: Home
[2018-05-28] MEDS ORDERED: Ondansetron INJ* 2 MG/ML VIAL ONE (22:13)
[2018-05-28] MEDS ORDERED: Iodixanol* (CONTRAST) 320 MG/ML 100 ML SDV IV ONE (22:47)
[2018-05-28 23:31] LABS: Urine Appearance Clear; Urine Blood 1+ (Negative); Urine Color Yellow; Urine Ketones Negative (Negative); Urine Protein Negative (Negative); Urine Red Blood Cell 1+(3-5/hpf) (Absent); Urine Specific Gravity 1.009 (1.010-1.030); Urine Urobilinogen Negative (Negative); Urine White Blood Cell 1+(6-10/hpf) (Absent)
--- NOTE | 2018-05-29 00:02 | RAD ---
EXAM: CT Abdomen and Pelvis With Intravenous Contrast CLINICAL HISTORY: 83 years old, female; Pain; Abdominal pain; Flank; Left lower quadrant (llq); Patient HX: HX diverticulitis, choli, appy; Additional info: Llq pain, diarrhea TECHNIQUE: Axial computed tomography images of the abdomen and pelvis with intravenous contrast. All CT scans at this facility use at least one of these dose optimization techniques: automated exposure control; mA and/or kV adjustment per patient size (includes targeted exams where dose is matched to clinical indication); or iterative reconstruction. Coronal and sagittal reformatted images were created and reviewed. CONTRAST: 88 mL of VISIPAQUE 320 administered intravenously. COMPARISON: A/P WO CT ABD/PEL W/O 09/17/2017 1:42 PM FINDINGS: Lung bases: Unremarkable. No mass. No consolidation. Mediastinum: Small hiatal hernia. ABDOMEN: Liver: Unremarkable. No mass. Gallbladder and bile ducts: Cholecystectomy. No ductal dilation. Pancreas: Occasional pancreatic calcifications. No ductal dilation. Spleen: Unremarkable. No splenomegaly. Adrenals: Unremarkable. No mass. Kidneys and ureters: Unremarkable. No solid mass. No hydronephrosis. Stomach and bowel: Moderate diverticulosis without diverticulitis or colitis. No obstruction. PELVIS: Appendix: Appendectomy. Bladder: Unremarkable. No mass. Reproductive: Unremarkable as visualized. ABDOMEN and PELVIS: Intraperitoneal space: Unremarkable. No free air. No significant fluid collection. 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 No acute fracture. No dislocation. Soft tissues: Unremarkable. Vasculature: Extensive atherosclerosis. No abdominal aortic aneurysm. Lymph nodes: Unremarkable. No enlarged lymph nodes. Other findings: No other acute disease seen. As above. IMPRESSION: 1. Moderate diverticulosis without diverticulitis or colitis. 2. No other acute disease seen. As above. To contact [facility] with a general question: Operations Center - [phone] For direct physician to physician contact: Physician Hotline - [phone] [facility] ([facility] Facility ID #[id number])
[2018-05-29] MEDS ORDERED: NS 0.9% 1000 ML* 1,000 ML IV ONE (00:21)
[2018-05-29] MEDS ORDERED: Ciprofloxacin 400MG IVPREMIX(* 400 MG/200 ML BAG IVPB ONE (00:24)
[2018-05-29] MEDS ORDERED: Acetaminophen TAB* 325 MG PO ONE (00:38)
[2018-05-29] MEDS ORDERED: metroNIDAZOLE TAB* 250 MG PO ONE (02:21)
[2018-05-29 03:38] VITALS: BP 145/59
--- NOTE | 2018-05-29 08:12 | RAD ---
Indication: Fever. Single frontal view of the chest performed at 2123 hours was reviewed. Comparison is made with previous exam dated November 25, 2016. No mediastinal shift is noted. Heart is of normal size and configuration. Lung dennis appear clear. IMPRESSION: NO ACTIVE CARDIOPULMONARY DISEASE IS NOTED. R0
--- NOTE | 2018-05-31 15:04 | ED ---
Progress - Progress Note Progress Note: Patient's final urine culture reveals few "few enterobacteriacae; possible contamination". Patient was discharged on Cipro and Flagyl. If symptoms persist, patient may follow up with PCP as she was directed at discharge. Otherwise no further treatment necessary at this time. Re-Evaluation - Re-Evaluation First Eval Re-Evaluation Time: 22:37 Change: Improved Comment: feeling better after fluids Second Eval Re-Evaluation Time: 01:20 Change: Improved Comment: discussed results waiting for c diff Third Eval Re-Evaluation Time: 02:23 Change: Improved Comment: would like to go home, discussed c diff neg but with recent travel will cover for infectious diarrhea and uti with cipro and flagyl Course/Dx - Course Course Of Treatment: 83-year-old female presents with nausea vomiting diarrhea for the past couple hours. She states she recently came back from the [place]. No one else is sick. She states felt feverous. She had one episode of chest pain that resolved a couple hours ago. She states that it was a dull pain. She states she's been having left lower quadrant pain. No diarrhea. No recent antibiotic use. She denies any shortness breath. She admits to occasional cough. She denies headache. She states feels really weak. She is able to drink fluids but that she has been having multiple episodes of diarrhea throughout the day. Has history of diverticulitis. Has had appendix and gallbladder removed and has adhesion surgery on her abdomen. Has history of high blood pressure and hypothyroidism. On exam lungs clear to auscultation. Abdomen soft nontender. EKG shows sinus rhythm. Chest x-ray is similar to previous. White blood cell count normal. CRP elevated. Troponin negative. urine shows uti. will treat with cipro. CT abd normal. had a foul smelling bm here but placed toliet paper in it. next bm was sent and was negative for c diff. discussed with patient will treat for infection diarrhea with cipro and flagyl for 5 days. told to encourage fluids. discussed if feels weak or not able to keep oral fluids in to return. patient understand and agrees with plan. - Diagnoses Provider Diagnoses: UTI (urinary tract infection), Vomiting and diarrhea Discharge - Sign-Out/Discharge Documenting (check all that apply): Post-Discharge Follow Up - Discharge Plan Condition: Good Disposition: HOME Prescriptions: Ciprofloxacin TAB* [Cipro 500 MG TAB*] 500 mg PO BID #9 tab metroNIDAZOLE [Flagyl 500 MG TAB] 500 mg PO TID #9 tab Patient Education Materials: Urinary Tract Infection in Women (ED), Acute Diarrhea (ED) Referrals: Pedro Aquino MD [Primary Care Provider] - Additional Instructions: Take ciprofloxacin twice a day for 5 days, first dose given in ED Take Flagyl twice for 5 days, first dose given in ED When able to eat follow BRAT diet: Bananas, rice, applesauce, toast take probiotic daily follow up with primary within 5 days Return to ED if develop any new or worsening symptoms - Billing Disposition and Condition Condition: GOOD Disposition: Home
== END 2018-05-29 03:15 | disposition home or self-care (01) ==
LOC: ED 20:18
DX: N39.0 Urinary tract infection, site not specified (principal); R11.10 Vomiting, unspecified; R19.7 Diarrhea, unspecified; K57.90 Diverticulosis of intestine, part unspecified, without perforation or abscess without bleeding; I44.7 Left bundle-branch block, unspecified; Z88.5 Allergy status to narcotic agent; Z88.0 Allergy status to penicillin; Z88.2 Allergy status to sulfonamides
CPT/HCPCS: 36415; 71045; 74177; 80053; 81003; 81015; 83605; 83735; 83880; 84484; 85025; 85610; 85730; 86140; 87040; 87045; 87046; 87077; 87086; 87493; 87899; 93005; 96361; 96365; 96375; 99282; A9270-GY; J0744; J2405; Q9967

== ENCOUNTER 2018-12-16 16:09 | Emergency (ER) | payer MEDICARE ==
[2018-12-16 16:21] VITALS: BP 109/55
[2018-12-16] MEDS ORDERED: Famotidine TAB* 20 MG PO ONE (16:44)
[2018-12-16] MEDS ORDERED: LoraTADine TAB(NF) 10 MG TAB (AUTOSUB to CETIRIZINE) PO ONE (16:44)
[2018-12-16] MEDS ORDERED: predniSONE TAB* 20 MG PO ONE (16:44)
--- NOTE | 2018-12-16 16:51 | UC ---
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 HAS SIGNIFICANT SWELLING, REDNESS AND PAIN. DENIES ANY ITCHING. DENIES ANY RESPIRATORY DIFFICULTY OR TONGUE/LIP SWELLING. NO NUMBNESS/TINGLING. STATES SHE WAS ALLERGIC TO BEES A CHILD AND HAD ONE EPISODE WHERE SHE FELT SHE COULD NOT BREATHE. DID NOT TAKE ANY MEDICATIONS. - History of Current Complaint Chief Complaint: UCSkin Stated Complaint: BEE STING Time Seen by Provider: 12/16/18 16:24 Hx Obtained From: Patient Onset/Duration: Sudden Onset, Lasting Minutes, Still Present Severity Initially: Moderate Severity Currently: Moderate Pain Intensity: 8 Pain Scale Used: 0-10 Numeric Location: Discrete @ - LEFT INDEX FINGER Character: Swelling, Pain Aggravating Factor(s): Nothing - TOUCH Alleviating Factor(s): Nothing Associated Signs And Symptoms: Negative: Hoarseness, Nausea - Allergies/Home Medications Allergies/Adverse Reactions: Allergies Allergy/AdvReac Type Severity Reaction Status Date / Time meperidine [From Demerol] Allergy See Comment Verified 12/16/18 16:21 Penicillins Allergy Difficulty Verified 12/16/18 16:21 Breathing red dye Allergy Hives Verified 12/16/18 16:21 Sulfa (Sulfonamide Allergy Hives Verified 12/16/18 16:21 Antibiotics) PMH/Surg Hx/FS Hx/Imm Hx Endocrine History: Hypothyroidism Cardiovascular History: Hypertension Other History Of: Negative For: Anticoagulant Therapy - Surgical History Surgical History: Yes Surgery Procedure, Year, and Place: appe at age 15, avery removed 20 yrs ago, ureteral sling per pt, tonsillectomy, - Family History Family History: Father with lung cancer. Mother with ovarian cancer. - Social History Alcohol Use: None Substance Use Type: None Smoking Status (MU): Former Smoker - Immunization History Most Recent Influenza Vaccination: 2013 Most Recent Tetanus Shot: UNSURE Most Recent Pneumonia Vaccination: 2011 Review of Systems All Other Systems Reviewed And Are Negative: Yes Constitutional: Positive: Negative Skin: Positive: Other - ERYTHEMA AT BEE STING SITE Respiratory: Positive: Negative Cardiovascular: Positive: Negative Gastrointestinal: Positive: Negative Musculoskeletal: Positive: Edema Physical Exam Triage Information Reviewed: Yes Appearance: Well-Appearing, No Pain Distress, Well-Nourished Vital Signs: Initial Vital Signs Temp 97.6 F 12/16/18 16:16 Pulse 65 12/16/18 16:16 Resp 16 12/16/18 16:16 BP 109/55 12/16/18 16:16 Pulse Ox 98 12/16/18 16:16 Vital Signs Reviewed: Yes Eyes: Positive: Conjunctiva Clear ENT: Positive: Hearing grossly normal Neck: Positive: Supple Respiratory: Positive: No respiratory distress, No accessory muscle use Cardiovascular: Positive: Pulses Normal Abdomen Description: Positive: Soft Musculoskeletal: Positive: ROM Limited @ - LEFT INDEX FINGER FLEXION REDUCED DUE TO SWELLING, Edema @ - LEFT INDEX FINGER Neurological: Positive: Alert Psychological: Positive: Age Appropriate Behavior Skin: Positive: Other - LEFT INDEX FINGER ERYTHEMA AND SWELLING. STING SITE OVERLYING PROXIMAL PHALANX VOLAR SURFACE Re-Evaluation - Re-Evaluation First Eval Re-Evaluation Time: 17:15 - STABLE. NO WORSENING OF SX Change: Unchanged Allergic Reaction Course/Dx - Course Course Of Treatment: LEFT INDEX FINGER STING BITE BE LATE THIS MORNING. SWELLING AND REDNESS COULD SIMPLY BE DUE TO LOCAL REACTION/INFLAMMATION HOWEVER PATIENT IS VERY CONCERNED SHE HAD WHAT SHE DESCRIBES AN ANAPHYLACTIC REACTION A CHILD. STATES SHE USED TO HAVE AN EPIPEN BUT DOES NOT ANY LONGER. PATIENT OTHERWISE FEELS WELL. NO BREATHING DIFFICULTIES OR TONGUE/LIP SWELLING. HAVE TREATED FOR ALLERGY WITH PREDNISONE AND ANTIHISTAMINE. ADVISED CONTINUED COOL COMPRESSES. TO THE ER IF SYMPTOMS WORSEN. - Differential Dx/Diagnosis Provider Diagnosis: Allergy to bee sting Discharge - Sign-Out/Discharge Documenting (check all that apply): Patient Departure All imaging exams completed and their final reports reviewed: No Studies - Discharge Plan Condition: Stable Disposition: HOME Prescriptions: EPINEPHrine [Epipen] 0.3 mg IJ ONCE PRN #1 auto.injct PRN Reason: Allergy Symptoms predniSONE TAB* [Deltasone TAB*] 50 mg PO DAILY #4 tab Patient Education Materials: Insect Bite or Sting (ED) Referrals: Pedro Aquino MD [Primary Care Provider] - If Needed Additional Instructions: CONTINUE PREDNISONE FOR 4 MORE DAYS. TAKE OTC ANTIHISTAMINES. APPLY COOL COMPRESSES TO THE AREA. YOUR SYMPTOMS SHOULD CONTINUE TO IMPROVE OVER THE NEXT FEW DAYS. GO TO THE ER WITHOUT FAIL IF YOU DEVELOP WORSENING PAIN, SWELLING, FEVER, DIFFICULTY BREATHING, TONGUE/LIP SWELLING OR ANY OTHER CONCERNING SYMPTOMS. - Billing Disposition and Condition Condition: STABLE Disposition: Home
== END 2018-12-16 17:29 | disposition home or self-care (01) ==
LOC: UCEAST 16:09
DX: T63.441A Toxic effect of venom of bees, accidental (unintentional), initial encounter (principal); M79.89 Other specified soft tissue disorders; Y92.9 Unspecified place or not applicable; E03.9 Hypothyroidism, unspecified; I10 Essential (primary) hypertension; Z88.5 Allergy status to narcotic agent; Z88.0 Allergy status to penicillin; Z88.2 Allergy status to sulfonamides; Z91.048 Other nonmedicinal substance allergy status; Z87.891 Personal history of nicotine dependence
CPT/HCPCS: 99213; A9270-GY; G0463; J7512

== ENCOUNTER 2018-12-29 09:48 | Emergency (ER) | payer MEDICARE ==
--- NOTE | 2018-12-29 11:40 | UC ---
Throat Pain/Nasal Will HPI - HPI Summary HPI Summary: 83-year-old female who has been ill with a head cold over the past 3 days. She states she started coughing up a little bit of light yellow sputum and was concerned that she might have a sinus infection. - History of Current Complaint Chief Complaint: UCRespiratory Stated Complaint: RESP COMOLAINT Time Seen by Provider: 12/29/18 11:39 Hx Obtained From: Patient ?: No Onset/Duration: Gradual Onset Severity: Mild Pain Intensity: 4 Cough: Productive - Patient states she had clear sputum until today was light yellow but she got a might be sinus drainage. Associated Signs & Symptoms: Positive: Nasal Discharge - Allergies/Home Medications Allergies/Adverse Reactions: Allergies Allergy/AdvReac Type Severity Reaction Status Date / Time meperidine [From Demerol] Allergy See Comment Verified 12/29/18 10:57 Penicillins Allergy Difficulty Verified 12/29/18 10:57 Breathing red dye Allergy Hives Verified 12/29/18 10:57 Sulfa (Sulfonamide Allergy Hives Verified 12/29/18 10:57 Antibiotics) PMH/Surg Hx/FS Hx/Imm Hx Previously Healthy: Yes Endocrine History: Thyroid Disease Cardiovascular History: Hypertension Other History Of: Negative For: Anticoagulant Therapy - Surgical History Surgical History: Yes Surgery Procedure, Year, and Place: appe at age 15, avery removed 20 yrs ago, ureteral sling per pt, tonsillectomy, - Family History Known Family History: Positive: Non-Contributory Family History: Father with lung cancer. Mother with ovarian cancer. - Social History Occupation: Retired Alcohol Use: None Substance Use Type: None Smoking Status (MU): Former Smoker - Immunization History Most Recent Influenza Vaccination: 2012 Most Recent Tetanus Shot: UNSURE Most Recent Pneumonia Vaccination: 2011 Review of Systems All Other Systems Reviewed And Are Negative: Yes ENT: Positive: Nasal Discharge, Sinus Congestion Respiratory: Positive: Cough Is Patient Immunocompromised?: No Physical Exam Triage Information Reviewed: Yes Appearance: Well-Appearing, No Pain Distress, Well-Nourished Vital Signs: Initial Vital Signs Temp 98 F 12/29/18 09:55 Pulse 80 12/29/18 09:55 Resp 18 12/29/18 09:55 BP 158/54 12/29/18 09:55 Pulse Ox 95 12/29/18 09:55 Vital Signs Reviewed: Yes Eyes: Positive: Conjunctiva Clear ENT: Positive: Pharynx normal, Nasal drainage - Clear nasal coryza, sinuses nontender., TMs normal, Uvula midline Neck: Positive: Supple, Nontender, No Lymphadenopathy Respiratory: Positive: Lungs clear, Normal breath sounds, No respiratory distress, No accessory muscle use Cardiovascular: Positive: RRR, No Murmur, Pulses Normal, Brisk Capillary Refill Musculoskeletal Exam: Normal - Patient is in very good physical condition and mobility for an 83-year-old Neurological Exam: Normal Psychological Exam: Normal Skin Exam: Normal Throat Pain/Nasal Course/Dx - Course Course Of Treatment: Chest x-ray:FINDINGS: The heart is within normal limits in size. Mediastinal and hilar contours appear within normal limits. The lungs are hyperinflated and clear. No pleural effusion is seen. IMPRESSION: FINDINGS CONSISTENT WITH COPD, NO EVIDENCE FOR ACUTE DISEASE. She has been comfortable here. I believe this is a viral upper respiratory illness. She is to follow-up with her primary care provider next week if no improvement. - Differential Dx/Diagnosis Provider Diagnosis: URI (upper respiratory infection) Discharge - Sign-Out/Discharge Documenting (check all that apply): Patient Departure All imaging exams completed and their final reports reviewed: Yes - Discharge Plan Condition: Fair Disposition: HOME Patient Education Materials: Upper Respiratory Infection (DC) Referrals: Pedro Aquino MD [Primary Care Provider] - Additional Instructions: Definite follow-up with your primary care provider on Tuesday or Tuesday if no improvement. If you have any worsening symptoms through the weekend then you 're to go to the emergency room. - Billing Disposition and Condition Condition: FAIR Disposition: Home
[2018-12-29 12:10] VITALS: BP 177/73
== END 2018-12-29 12:42 | disposition home or self-care (01) ==
LOC: UCEAST 09:48
DX: J06.9 Acute upper respiratory infection, unspecified (principal); I10 Essential (primary) hypertension; Z88.5 Allergy status to narcotic agent; Z88.0 Allergy status to penicillin; Z88.2 Allergy status to sulfonamides; Z91.09 Other allergy status, other than to drugs and biological substances; Z87.891 Personal history of nicotine dependence
CPT/HCPCS: 71046; 99211; G0463

== ENCOUNTER 2019-01-01 00:50 | Inpatient (IN) | payer MEDICARE ==
[2019-01-01] MEDS ORDERED: Acetaminophen TAB* 325 MG PO ONE (01:44)
[2019-01-01] MEDS ORDERED: Levofloxacin 750 MG IVPREMIX(* 750 MG/150 ML BAG IVPB ONE (01:45)
[2019-01-01] MEDS ORDERED: Albuterol 2.5 MG/3 ML NEB.SOL* (0.083%) INH ONE (01:45)
[2019-01-01] MEDS ORDERED: NS 0.9% 1000 ML** 1,000 ML IV ONE (01:45)
[2019-01-01] MEDS ORDERED: Albuterol/Ipratropium NEB.SOL* Albuterol 2.5 MG/Ipratropium 0.5 MG 3 ML INH ONE (01:45)
[2019-01-01 02:26] LABS: Activated Partial Thrombo Time 26.3 seconds (26.0-36.3); INR 1.03 (0.82-1.09)
[2019-01-01 02:34] LABS: Albumin 3.9 g/dL (3.2-5.2); Albumin/Globulin Ratio 1.4 (1-3); BUN/Creatinine Ratio 25.3 (8-20); C Reactive Protein 8.31 mg/L (<8.01); Calcium 9.5 mg/dL (8.6-10.3); EGFR African American 68.3 (>60); EGFR Non-African American 56.5 (>60); Globulin 2.8 g/dL (2-4); Potassium 4.4 mmol/L (3.5-5.0); Total Bilirubin 0.9 mg/dL (0.2-1.0); Total Protein 6.7 g/dL (6.4-8.9)
[2019-01-01 02:37] LABS: ABS Eosinophils 0.1 10^3/ul (0-0.6); ABS Lymphocytes 1.2 10^3/ul (1.0-4.8); ABS Neutrophils 7.6 10^3/ul (1.5-7.7); Eosinophil % 1.1 %; Hematocrit 38 % (35-47); Hemoglobin 12.9 g/dL (12.0-16.0); Lymphocyte % 12.4 %; Mean Corpuscular HGB Conc 34 g/dL (31-36); Mean Corpuscular Hemoglobin 32 pg (27-31); Mean Corpuscular Volume 93 fL (80-97); Platelet Count 95 10^3/uL (150-450); Red Blood Count 4.11 10^6 /uL (3.70-4.87); Red Cell Distribution Width 13 % (10.5-15)
[2019-01-01] MEDS ORDERED: methylPREDNISolone 125 MG* 2 ML VIAL IV ONE (02:57)
[2019-01-01 04:02] LABS: Influenza A Molecular NEGATIVE (Negative); Influenza B Molecular NEGATIVE (Negative)
--- NOTE | 2019-01-01 04:04 | ED ---
Complex/Multi-Sys Presentation - HPI Summary HPI Summary: Patient is a 83 y/o F presenting to ED with complaints of SOB, cough productive of green phlegm, head cold, fever, chills, post-nasal drip, and HAGEN. Sx onset six days ago and worsened three days ago. [facility], had CXR done, was told she had laryngitis and advised to take flonase and zyrtec. However, Sx have persisted. Patient also has been having diarrhea for the past week but denies nausea and abdominal pain. PMHx of hypothyroid, HTN , dyslipidemia, GERD. On triage, pain is rated 7/10, nothing is noted to aggravate/alleviate Sx. Home medications and allergies are reviewed. - History Of Current Complaint Chief Complaint: EDFever Time Seen by Provider: 01/01/19 01:34 Hx Obtained From: Patient Onset/Duration: Lasting Days - six days ago onset, Still Present, Worse Since - three days ago Timing: Constant, Days - six days ago onset Severity Initially: Severe Location: Pain At: - head Character: Typical Headache - head cold Aggravating Factor(s): nothing Alleviating Factor(s): nothing Associated Signs And Symptoms: Positive: Headache, SOB, Cough, Diarrhea, Fever, Other - POSITIVE - CHILLS, POST-NASAL DRIP, HEAD COLD. Negative: Nausea, Abdominal Pain - Allergies/Home Medications Allergies/Adverse Reactions: Allergies Allergy/AdvReac Type Severity Reaction Status Date / Time meperidine [From Demerol] Allergy See Comment Verified 01/01/19 00:55 Penicillins Allergy Difficulty Verified 01/01/19 00:55 Breathing red dye Allergy Hives Verified 01/01/19 00:55 Sulfa (Sulfonamide Allergy Hives Verified 01/01/19 00:55 Antibiotics) PMH/Surg Hx/FS Hx/Imm Hx Endocrine/Hematology History: Reports: Hx Thyroid Disease - hypothyroid Denies: Hx Anticoagulant Therapy, Hx Diabetes, Hx Systemic Lupus Erythematosus Cardiovascular History: Reports: Hx Hypercholesterolemia, Hx Hypertension, Other Cardiovascular Problems/Disorders - [facility] 11/25/16 ADMISSION Denies: Hx Congestive Heart Failure, Hx Pacemaker/ICD Respiratory History: Denies: Hx Asthma, Hx Chronic Obstructive Pulmonary Disease (COPD), Hx Pneumonia GI History: Reports: Hx Gall Bladder Disease, Hx Gastroesophageal Reflux Disease , Other GI Disorders - diverticulitis, GERD, BENIGN NEOPLASM COLON, APPENDICITIS History: Reports: Hx Kidney Stones, Other Problems/Disorders - URETERAL sling per pt. 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 Mother with ovarian cancer. Family History: Father with lung cancer. Mother with ovarian cancer. - Social History Alcohol Use: None Substance Use Type: Reports: None Smoking Status (MU): Former Smoker Review of Systems Constitutional: Other - POSITIVE - HEAD COLD, POST NASAL DRIP Positive: Fever, Chills Positive: Shortness Of Breath, Cough Positive: Diarrhea. Negative: Abdominal Pain, Nausea Positive: Headache All Other Systems Reviewed And Are Negative: Yes Physical Exam - Summary Physical Exam Summary: VITAL SIGNS: Reviewed. GENERAL: Patient is a well-developed and nourished female who is lying comfortable in the stretcher. Patient is not in any acute respiratory distress. HEAD AND FACE: No signs of trauma. No ecchymosis, hematomas or skull depressions. No sinus tenderness. EYES: PERRLA, EOMI x 2, No injected conjunctiva, no nystagmus. EARS: Hearing grossly intact. Ear canals and tympanic membranes are within normal limits. MOUTH: Oropharynx within normal limits. NECK: Supple, trachea is midline, no adenopathy, no JVD, no carotid bruit, no c- spine tenderness, neck with full ROM CHEST: Symmetric, no tenderness at palpation LUNGS: Decreased breath sounds bilaterally CVS: Regular rate and rhythm, S1 and S2 present, no murmurs or gallops appreciated. ABDOMEN: Soft, non-tender. No signs of distention. No rebound no guarding, and no masses palpated. Bowel sounds are normal. EXTREMITIES: FROM in all major joints, no edema, no cyanosis or clubbing. NEURO: Alert and oriented x 3. No acute neurological deficits. Speech is normal and follows commands. SKIN: Dry and warm Triage Information Reviewed: Yes Vital Signs On Initial Exam: Initial Vitals Temp Pulse Resp BP Pulse Ox 100.3 F 106 18 191/92 92 01/01/19 00:51 01/01/19 00:51 01/01/19 00:51 01/01/19 00:51 01/01/19 00:51 Vital Signs Reviewed: Yes Diagnostics - Vital Signs Vital Signs Temp Pulse Resp BP Pulse Ox 01/01/19 03:40 93 01/01/19 03:11 110 23 138/69 92 01/01/19 03:00 113 18 93 01/01/19 02:41 113 24 143/64 89 01/01/19 02:12 91 20 98 01/01/19 02:00 100 22 93 01/01/19 01:44 93 01/01/19 01:38 98.1 F 01/01/19 01:30 94 168/93 93 01/01/19 00:51 100.3 F 106 18 191/92 92 - Laboratory Lab Results: Lab Results 01/01/19 01/01/19 01/01/19 Range/Units 02:09 02:09 02:09 WBC 10.0 (3.5-10.8) 10^3/uL RBC 4.11 (3.70-4.87) 10^6 /uL Hgb 12.9 (12.0-16.0) g/dL Hct 38 (35-47) % MCV 93 (80-97) fL MCH 32 H (27-31) pg MCHC 34 (31-36) g/dL RDW 13 (10.5-15) % Plt Count 95 L (150-450) 10^3/uL MPV 8.0 (7.4-10.4) fL Neut % (Auto) 76.4 % Lymph % (Auto) 12.4 % Logan % (Auto) 9.6 % Eos % (Auto) 1.1 % Baso % (Auto) 0.5 % Absolute Neuts (auto) 7.6 (1.5-7.7) 10^3/ul Absolute Lymphs (auto) 1.2 (1.0-4.8) 10^3/ul Absolute Monos (auto) 1.0 H (0-0.8) 10^3/ul Absolute Eos (auto) 0.1 (0-0.6) 10^3/ul Absolute Basos (auto) 0.0 (0-0.2) 10^3/ul Absolute Nucleated RBC 0.0 10^3/ul Nucleated RBC % 0.0 Hem Pathologist Commnt Pending INR (Anticoag Therapy) 1.03 (0.82-1.09) APTT 26.3 (26.0-36.3) seconds Sodium 133 L (135-145) mmol/L Potassium 4.4 (3.5-5.0) mmol/L Chloride 102 (101-111) mmol/L Carbon Dioxide 22 (22-32) mmol/L Anion Gap 9 (2-11) mmol/L BUN 24 (6-24) mg/dL Creatinine 0.95 (0.51-0.95) mg/dL Est GFR ( Amer) 68.3 (>60) Est GFR (Non-Af Amer) 56.5 (>60) BUN/Creatinine Ratio 25.3 H (8-20) Glucose 140 H (70-100) mg/dL Lactic Acid (0.5-2.0) mmol/L Calcium 9.5 (8.6-10.3) mg/dL Total Bilirubin 0.90 (0.2-1.0) mg/dL AST 33 (13-39) U/L ALT 30 (7-52) U/L Alkaline Phosphatase 37 (34-104) U/L C-Reactive Protein 8.31 H (<8.01) mg/L Total Protein 6.7 (6.4-8.9) g/dL Albumin 3.9 (3.2-5.2) g/dL Globulin 2.8 (2-4) g/dL Albumin/Globulin Ratio 1.4 (1-3) 01/01/19 Range/Units 02:09 WBC (3.5-10.8) 10^3/uL RBC (3.70-4.87) 10^6 /uL Hgb (12.0-16.0) g/dL Hct (35-47) % MCV (80-97) fL MCH (27-31) pg MCHC (31-36) g/dL RDW (10.5-15) % Plt Count (150-450) 10^3/uL MPV (7.4-10.4) fL Neut % (Auto) % Lymph % (Auto) % Logan % (Auto) % Eos % (Auto) % Baso % (Auto) % Absolute Neuts (auto) (1.5-7.7) 10^3/ul Absolute Lymphs (auto) (1.0-4.8) 10^3/ul Absolute Monos (auto) (0-0.8) 10^3/ul Absolute Eos (auto) (0-0.6) 10^3/ul Absolute Basos (auto) (0-0.2) 10^3/ul Absolute Nucleated RBC 10^3/ul Nucleated RBC % Hem Pathologist Commnt INR (Anticoag Therapy) (0.82-1.09) APTT (26.0-36.3) seconds Sodium (135-145) mmol/L Potassium (3.5-5.0) mmol/L Chloride (101-111) mmol/L Carbon Dioxide (22-32) mmol/L Anion Gap (2-11) mmol/L BUN (6-24) mg/dL Creatinine (0.51-0.95) mg/dL Est GFR ( Amer) (>60) Est GFR (Non-Af Amer) (>60) BUN/Creatinine Ratio (8-20) Glucose (70-100) mg/dL Lactic Acid 1.6 (0.5-2.0) mmol/L Calcium (8.6-10.3) mg/dL Total Bilirubin (0.2-1.0) mg/dL AST (13-39) U/L ALT (7-52) U/L Alkaline Phosphatase (34-104) U/L C-Reactive Protein (<8.01) mg/L Total Protein (6.4-8.9) g/dL Albumin (3.2-5.2) g/dL Globulin (2-4) g/dL Albumin/Globulin Ratio (1-3) Result Diagrams: 01/01/19 02:09 01/01/19 02:09 Lab Statement: Any lab studies that have been ordered have been reviewed, and results considered in the medical decision making process. - Radiology CXR Radiology Interpretation Completed By: ED Physician Summary of Radiographic Findings: NO ACUTE PROCESS, PENDING OFFICIAL REPORT. - CT CTA CHEST/THORAX CT Interpretation Completed By: Radiologist Summary of CT Findings: CTA CHEST/THORAX IMPRESSION: 1. No pulmonary embolism. 2. Extensive centrilobular emphysematous changes predominantly in the upper. lobes. 3. Small sliding hiatal hernia. THIS REPORT WAS REVIEWED BY DR. ANTUNEZ Re-Evaluation - Re-Evaluation First Eval Re-Evaluation Time: 04:04 Comment: Nurse reports that niall desatted to 88% o2 when she was ambulated. Second Eval Re-Evaluation Time: 04:06 Comment: Admission discussed with patient, she is agreeable. Complex Multi-Symp Course/Dx Course Of Treatment: Patient is a 83 y/o F presenting to ED with complaints of SOB, cough productive of green phlegm, head cold, fever, chills, post-nasal drip , and HAGEN. Sx onset six days ago and worsened three days ago. [facility], had CXR done, was told she had laryngitis and advised to take flonase and zyrtec. However, Sx have persisted. Patient also has been having diarrhea for the past week but denies nausea and abdominal pain. PMHx of hypothyroid, HTN, dyslipidemia, GERD. On physical exam, decreased breath sounds bilaterally are noted. CXR showed no acute process. Labs showed MCH 32, Plt count 95, absolute monos 1, sodium 133, BUN/creatinine 25.3, glucose 140, lactic acid 1.6, CRP 8.31. UA showed 1+ blood, trace leukocyte esterase, trace WBC, trace RBC, squamous epith cells present, 1+ bacteria. Negative influenza A, B. During ED course, patient received fluids, solu-medrol 125 mg IV, Levaquin 750 mg in 150 mls @ 100 mls/hr IVPB, duoneb, 1 neb, albuterol 2.5 mg INH, Tylenol 975 mg PO. Nurse reports that niall desatted to 88% o2 when she was ambulated. Patient's case was discussed with Dr. Chaney, Dr. Chaney requests that CTA be done before admission. CTA CHEST/THORAX IMPRESSION: 1. No pulmonary embolism. 2. Extensive centrilobular emphysematous changes predominantly in the upper. lobes. 3. Small sliding hiatal hernia. Patient's case discussed with Dr. Chaney once more after CTA resulted, Dr. Chaney accepts for admission. - Diagnoses Provider Diagnoses: COPD (chronic obstructive pulmonary disease), Bronchitis - Physician Notifications Discussed Care Of Patient With: Marcos Chaney Time Discussed With Above Provider: 04:08 Instructed by Provider To: Other - Patient's case was discussed with Dr. Chaney, Dr. Chaney requests that CTA be done before admission. [id number] - Patient's case discussed with Dr. Chaney once more after CTA resulted, Dr. Chaney accepts for admission. Discharge - Sign-Out/Discharge Documenting (check all that apply): Patient Departure - admit Patient Received Moderate/Deep Sedation with Procedure: No - Discharge Plan Condition: Good Disposition: ADMITTED TO [facility] - Billing Disposition and Condition Condition: GOOD Disposition: Admitted to [facility] - Attestation Statements Document Initiated by Scribe: Yes Documenting Scribe: KELLY NAJERA Provider For Whom Jacky is Documenting (Include Credential): SORAYA ANUTNEZ MD Scribe Attestation: KELLY Valle, scribed for SORAYA ANTUNEZ MD on 01/01/19 at 0615. Scribe Documentation Reviewed: Yes Provider Attestation: The documentation as recorded by the KELLY leyva accurately reflects the service I personally performed and the decisions made by JESSICA monson MD Status of Scribe Document: Viewed
[2019-01-01] MEDS ORDERED: Iodixanol* (CONTRAST) 320 MG/ML 100 ML SDV IV ONE (04:28)
[2019-01-01 04:40] LABS: Urine Appearance Clear; Urine Bacteria 1+ (Absent); Urine Bilirubin Negative (Negative); Urine Blood 1+ (Negative); Urine Color Yellow; Urine Glucose Negative (Negative); Urine Ketones Negative (Negative); Urine Nitrite Negative (Negative); Urine Protein Negative (Negative); Urine Red Blood Cell Trace(0-2/hpf) (Absent); Urine Specific Gravity 1.011 (1.010-1.030); Urine Squamous Epithelial Cell Present (Absent); Urine Urobilinogen Negative (Negative); Urine White Blood Cell Trace(0-5/hpf) (Absent)
[2019-01-01] MEDS ORDERED: Albuterol 2.5 MG/3 ML NEB.SOL* (0.083%) INH PRN (05:39)
[2019-01-01] MEDS ORDERED: Pantoprazole TAB * 40 MG TAB PO PRN (05:41)
[2019-01-01] MEDS ORDERED: DOXYcycline IV* 100 MG in NS 0.9% 250 ML* 250 ML IVPB SCH (06:00)
[2019-01-01] MEDS ORDERED: methylPREDNISolone SOD 40 MG* 1 ML VIAL IV SCH (06:00)
[2019-01-01] MEDS ORDERED: Levalbuterol 1.25MG/0.5ML NEB INH SCH (07:00)
[2019-01-01] MEDS: Mometasone/Formoter 200/5 MDI INH SCH ×2 (07:43→19:43)
[2019-01-01] MEDS: Levothyroxine TAB* 88 MCG TAB PO SCH (07:55)
[2019-01-01] MEDS ORDERED: Atorvastatin* 40 MG TAB PO SCH ×2 (09:00→22:15)
[2019-01-01] MEDS ORDERED: DOXYcycline CAP(*) 100 MG PO SCH (09:00)
[2019-01-01] MEDS ORDERED: Lisinopril TAB* 10 MG PO SCH ×2 (09:00→22:30)
[2019-01-01] MEDS: Enoxaparin(*) 30 MG/0.3 ML SYR SUBCUT SCH (09:11)
[2019-01-01] MEDS: Multivitamins/Minerals TAB PO SCH (09:13)
[2019-01-01] MEDS: Metoprolol Succinate XL TAB* 50 MG PO SCH (09:13)
--- NOTE | 2019-01-01 09:19 | HP ---
HISTORY AND PHYSICAL: ADDENDUM: Of note, the patient was ambulated in the ER and was found to be hypoxic on exertion at 88 % and given the patient's confusion, we have admitted the patient for treatment of [id number] C OPD exacerbation causing hypoxia. No infiltrates thought to be seen on CT scan and we will treat the patient with Solu- Medrol and Xopenex given her history of tachycardia. The patient has been ruled out for PE. [id number]/[facility] #: [id number]
--- NOTE | 2019-01-01 09:44 | HP ---
HISTORY AND PHYSICAL: DATE OF ADMISSION: 01/01/19 CHIEF COMPLAINT: Shortness of breath. HISTORY OF PRESENT ILLNESS: The patient is an 83-year-old lady with history of complaints of shortness of breath, productive cough with green phlegm , fevers, chills, and postnasal drip as well as headache 6 days prior to admission. She mentioned that she observed her symptoms for 3 more days and 3 days prior to admission reached [facility] and had a chest x-ray done and was told that she had laryngitis and advised to take Flonase and Zyrtec. However, the symptoms has persisted and patient has also complained of diarrhea for the past week but denies any nausea nor abdominal pain. 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 CURRENT MEDICATIONS: As follows: 1. Metoprolol. 2. Torsemide. 3. Omeprazole. 4. Multivitamin. 5. Theragran. 6. Lisinopril. 7. Levothyroxine. 8. Atorvastatin. 9. Alendronate. ALLERGIES: MEPERIDINE, PENICILLIN, RED DYE, and SULFA. FAMILY HISTORY: The patient's mother at the age of 90 from kidney failure. Patient's father in the 80s from coronary artery disease and also status post CABG and malignant tumor. 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 The patient does not recall drinking excessively nor using illicit drugs. She mentions her parents were smokers and had some history of smoking a few cigarettes about 2-3 per day for about 10 years. REVIEW OF SYSTEMS: The patient denied any recent headaches, dizziness, fevers, chills, nausea, vomiting, chest pain, shortness of breath, increased cough and/ or sputum production, abdominal pain, diarrhea, constipation, pain and/or increased frequency on urination, myalgias, arthralgias, throat pain, or new skin lesions. The rest of the 14-point review of systems are otherwise unremarkable. PHYSICAL EXAMINATION GENERAL APPEARANCE: The patient is awake, confused, oriented to person and place but not to time, not in acute distress. VITAL SIGNS: Reveals the most recent vital signs of record with blood pressure of 157/67, 100 beats per minute heart rate, 21 per minute respiratory rate, saturating at 93% at 2 L nasal cannula. HEENT: Normocephalic, atraumatic. PERRLA. Extraocular muscles intact. Negative for icterus. Moist oral mucosa. Negative throat erythema. LUNGS: Chest clear to auscultation bilaterally. Good air entry. No wheezes, rales, or rhonchi. HEART: S1, S2 within normal limits. Regular rate and rhythm. No murmurs, rubs , or gallops. ABDOMEN: Soft, nondistended, nontender. Normoactive bowel sounds x4 quadrants. EXTREMITIES: No cyanosis, clubbing, or edema. PSYCHIATRIC: No active psychosis, depression, suicidal or homicidal ideation. SKIN: Warm to touch. DIAGNOSTIC STUDIES/LAB DATA: Most recent pertinent laboratory draws show CBC with WBC of 10, platelets of 19.5, H and H of 12.9 and 38. INR of 1.03. Sodium and potassium of 133 and 4.4. BUN and creatinine were found to be normal. CRP mildly elevated at 8.31. CTA of the chest is negative for PE but with signs of centrilobular emphysema. ASSESSMENT AND PLAN: The patient is an 83-year-old lady with a history of gastroesophageal reflux disease, hypothyroidism, and hyperlipidemia being admitted for hypoxia, likely due to moderate chronic obstructive pulmonary disease exacerbation. 1. Hypoxia. We will place the patient on Xopenex given tachycardia as well as p.r.n. dosing and we will continue watchful waiting. Likely due to mild to moderate COPD due to exposure to second hand smoke and some smoking history herself. This may also explain some of her confusion on admission despite being oriented. 2. Hypothyroidism. Continue levothyroxine and we will continue watchful waiting. 3. Hypertension. Continue home regimen. 4. Thrombocytopenia. We will continue watchful waiting but on review she has had previously low platelets as well. 5. DVT prophylaxis. We will place the patient on Lovenox low dose. 6. Disposition. As above. [id number]/[facility] #: [id number] [facility]
--- NOTE | 2019-01-01 12:09 | PN ---
Subjective Date of Service: 01/01/19 Interval History: Mild cough, improved. Some difficulty recalling her recent medical problems and treatment. No new c/o. Objective Active Medications: Albuterol (Ventolin 2.5 Mg/3 Ml Neb.Marine*) 2.5 mg INH Q2H PRN PRN Reason: SOB/WHEEZING Atorvastatin Calcium (Lipitor*) 40 mg PO DAILY [facility] Last Admin: 01/01/19 09:17 Dose: Not Given Enoxaparin Sodium (Lovenox(*)) 30 mg SUBCUT Q24H [facility] Last Admin: 01/01/19 09:11 Dose: Not Given Doxycycline Hyclate 100 mg/ (Sodium Chloride) 250 mls @ 250 mls/hr IVPB Q12H [facility] Sodium Chloride (Ns 0.9% 1000 Ml) 1,000 mls @ 100 mls/hr IV PER RATE [facility] Levothyroxine Sodium (Synthroid Tab*) 88 mcg PO DAILY@0600 [facility] Last Admin: 01/01/19 07:55 Dose: 88 mcg Lisinopril (Prinivil Tab*) 20 mg PO DAILY [facility] Last Admin: 01/01/19 09:14 Dose: Not Given Metoprolol Succinate (Toprol Xl Tab*) 50 mg PO DAILY [facility] Last Admin: 01/01/19 09:13 Dose: 50 mg Mometasone Furoate/Formoterol Fumar (Dulera 200/5 Mdi*) 2 puff INH BID [facility] Last Admin: 01/01/19 07:43 Dose: Not Given Multivitamins/Minerals (Theragran/Minerals Tab*) 1 tab PO DAILY [facility] Last Admin: 01/01/19 09:13 Dose: 1 tab Pantoprazole Sodium (Protonix Tab*) 20 mg PO DAILY PRN PRN Reason: HEARTBURN Vital Signs - 8 hr 01/01/19 01/01/19 01/01/19 04:00 04:10 04:41 Temperature Pulse Rate 117 104 101 Respiratory 7 23 21 Rate Blood Pressure 129/68 157/67 (mmHg) O2 Sat by Pulse 91 95 94 Oximetry 01/01/19 01/01/19 01/01/19 05:00 06:15 06:30 Temperature 97.4 F 97.3 F Pulse Rate 99 100 101 Respiratory 21 22 20 Rate Blood Pressure 167/76 134/76 (mmHg) O2 Sat by Pulse 93 93 94 Oximetry 01/01/19 07:44 Temperature Pulse Rate 95 Respiratory 17 Rate Blood Pressure (mmHg) O2 Sat by Pulse 98 Oximetry Oxygen Devices in Use Now: Nasal Cannula Appearance: Alert, partly up in bed. In good spirits. Looks comfortable. Eyes: No Scleral Icterus Respiratory: Symmetrical Chest Expansion and Respiratory Effort, Clear to Auscultation, Clear to Percussion Cardiovascular: NL Sounds; No Murmurs; No JVD, RRR, No Edema, - Extremities: No Edema, No Clubbing, Cyanosis, - Skin: No Rash or Ulcers, No Nodules or Sclerosis, - Neurological: NL Sensation, - - Gave her age as 84. Impaired memory for recent events. No tremor. Result Diagrams: 01/01/19 02:09 01/01/19 02:09 Additional Lab and Data: Lab Results 01/01/19 01/01/19 01/01/19 Range/Units 02:09 02:09 02:09 WBC 10.0 (3.5-10.8) 10^3/uL RBC 4.11 (3.70-4.87) 10^6 /uL Hgb 12.9 (12.0-16.0) g/dL Hct 38 (35-47) % MCV 93 (80-97) fL MCH 32 H (27-31) pg MCHC 34 (31-36) g/dL RDW 13 (10.5-15) % Plt Count 95 L (150-450) 10^3/uL MPV 8.0 (7.4-10.4) fL Neut % (Auto) 76.4 % Lymph % (Auto) 12.4 % [place] % (Auto) 9.6 % Eos % (Auto) 1.1 % Baso % (Auto) 0.5 % Absolute Neuts (auto) 7.6 (1.5-7.7) 10^3/ul Absolute Lymphs (auto) 1.2 (1.0-4.8) 10^3/ul Absolute Monos (auto) 1.0 H (0-0.8) 10^3/ul Absolute Eos (auto) 0.1 (0-0.6) 10^3/ul Absolute Basos (auto) 0.0 (0-0.2) 10^3/ul Absolute Nucleated RBC 0.0 10^3/ul Nucleated RBC % 0.0 Hem Pathologist Commnt Pending INR (Anticoag Therapy) 1.03 (0.82-1.09) APTT 26.3 (26.0-36.3) seconds Sodium 133 L (135-145) mmol/L Potassium 4.4 (3.5-5.0) mmol/L Chloride 102 (101-111) mmol/L Carbon Dioxide 22 (22-32) mmol/L Anion Gap 9 (2-11) mmol/L BUN 24 (6-24) mg/dL Creatinine 0.95 (0.51-0.95) mg/dL Est GFR ( Amer) 68.3 (>60) Est GFR (Non-Af Amer) 56.5 (>60) BUN/Creatinine Ratio 25.3 H (8-20) Glucose 140 H (70-100) mg/dL Lactic Acid (0.5-2.0) mmol/L Calcium 9.5 (8.6-10.3) mg/dL Total Bilirubin 0.90 (0.2-1.0) mg/dL AST 33 (13-39) U/L ALT 30 (7-52) U/L Alkaline Phosphatase 37 (34-104) U/L C-Reactive Protein 8.31 H (<8.01) mg/L Total Protein 6.7 (6.4-8.9) g/dL Albumin 3.9 (3.2-5.2) g/dL Globulin 2.8 (2-4) g/dL Albumin/Globulin Ratio 1.4 (1-3) 01/01/19 Range/Units 02:09 WBC (3.5-10.8) 10^3/uL RBC (3.70-4.87) 10^6 /uL Hgb (12.0-16.0) g/dL Hct (35-47) % MCV (80-97) fL MCH (27-31) pg MCHC (31-36) g/dL RDW (10.5-15) % Plt Count (150-450) 10^3/uL MPV (7.4-10.4) fL Neut % (Auto) % Lymph % (Auto) % [place] % (Auto) % Eos % (Auto) % Baso % (Auto) % Absolute Neuts (auto) (1.5-7.7) 10^3/ul Absolute Lymphs (auto) (1.0-4.8) 10^3/ul Absolute Monos (auto) (0-0.8) 10^3/ul Absolute Eos (auto) (0-0.6) 10^3/ul Absolute Basos (auto) (0-0.2) 10^3/ul Absolute Nucleated RBC 10^3/ul Nucleated RBC % Hem Pathologist Commnt INR (Anticoag Therapy) (0.82-1.09) APTT (26.0-36.3) seconds Sodium (135-145) mmol/L Potassium (3.5-5.0) mmol/L Chloride (101-111) mmol/L Carbon Dioxide (22-32) mmol/L Anion Gap (2-11) mmol/L BUN (6-24) mg/dL Creatinine (0.51-0.95) mg/dL Est GFR ( Amer) (>60) Est GFR (Non-Af Amer) (>60) BUN/Creatinine Ratio (8-20) Glucose (70-100) mg/dL Lactic Acid 1.6 (0.5-2.0) mmol/L Calcium (8.6-10.3) mg/dL Total Bilirubin (0.2-1.0) mg/dL AST (13-39) U/L ALT (7-52) U/L Alkaline Phosphatase (34-104) U/L C-Reactive Protein (<8.01) mg/L Total Protein (6.4-8.9) g/dL Albumin (3.2-5.2) g/dL Globulin (2-4) g/dL Albumin/Globulin Ratio (1-3) Assess/Plan/Problems-Billing Assessment: - Patient Problems (1) COPD exacerbation Current Visit: Yes Status: Acute Code(s): J44.1 - CHRONIC OBSTRUCTIVE PULMONARY DISEASE W (ACUTE) EXACERBATION SNOMED Code(s): 726595708 Comment: Continue IV doxycycline. Steroid taper. O2 sta 94% on RA by me on 01/01. (2) Hypothyroid Current Visit: Yes Status: Acute Code(s): E03.9 - HYPOTHYROIDISM, UNSPECIFIED SNOMED Code(s): 00602851 Comment: Continue levothyroxine. TSH wnl 01/01/19. (3) HTN (hypertension) Current Visit: Yes Status: Acute Code(s): I10 - ESSENTIAL (PRIMARY) HYPERTENSION SNOMED Code(s): 64113435 Comment: Continue metoprolol. (4) GERD (gastroesophageal reflux disease) Current Visit: Yes Status: Acute Code(s): K21.9 - GASTRO-ESOPHAGEAL REFLUX DISEASE WITHOUT ESOPHAGITIS SNOMED Code(s): 305613306 Comment: Continue PPI.
[2019-01-01] MEDS: DOXYcycline IV* 100 MG in NS 0.9% 250 ML* 250 ML IVPB SCH ×2 (12:13→22:54)
[2019-01-01] MEDS: NS 0.9% 1000 ML** 1,000 ML IV SCH (12:13)
[2019-01-02] MEDS ORDERED: Acetaminophen TAB* 325 MG PO PRN (03:11)
[2019-01-02] MEDS: NS 0.9% 1000 ML** 1,000 ML IV SCH (05:50)
[2019-01-02] MEDS: Enoxaparin(*) 30 MG/0.3 ML SYR SUBCUT SCH (05:50)
[2019-01-02] MEDS: Levothyroxine TAB* 88 MCG TAB PO SCH (05:50)
[2019-01-02 06:42] LABS: ABS Lymphocytes 1.2 10^3/ul (1.0-4.8); ABS Monocytes 0.7 10^3/ul (0-0.8); ABS Neutrophils 11.4 10^3/ul (1.5-7.7); Hematocrit 36 % (35-47); Lymphocyte % 8.9 %; Mean Corpuscular HGB Conc 33 g/dL (31-36); Mean Corpuscular Hemoglobin 31 pg (27-31); Mean Corpuscular Volume 94 fL (80-97); Mean Platelet Volume 8.3 fL (7.4-10.4); Platelet Count 119 10^3/uL (150-450); Red Blood Count 3.88 10^6 /uL (3.70-4.87); Red Cell Distribution Width 13 % (10.5-15); White Blood Count 13.3 10^3/uL (3.5-10.8)
[2019-01-02 07:00] LABS: Albumin 3.8 g/dL (3.2-5.2); Albumin/Globulin Ratio 1.4 (1-3); BUN/Creatinine Ratio 22.7 (8-20); EGFR African American 74.6 (>60); EGFR Non-African American 61.7 (>60); Globulin 2.7 g/dL (2-4); Magnesium 1.5 mg/dL (1.9-2.7); Phosphorus 2.7 mg/dL (2.5-5.0); Potassium 4.2 mmol/L (3.5-5.0); Total Bilirubin 0.9 mg/dL (0.2-1.0); Total Protein 6.5 g/dL (6.4-8.9)
[2019-01-02] MEDS: Multivitamins/Minerals TAB PO SCH (07:53)
[2019-01-02] MEDS: Mometasone/Formoter 200/5 MDI INH SCH (07:59)
[2019-01-02] MEDS ORDERED: predniSONE TAB* 20 MG PO SCH (09:00)
[2019-01-02] MEDS: Metoprolol Succinate XL TAB* 50 MG PO SCH (09:03)
[2019-01-02] MEDS: DOXYcycline IV* 100 MG in NS 0.9% 250 ML* 250 ML IVPB SCH (11:26)
[2019-01-02 11:50] VITALS: BP 135/72
[2019-01-02] MEDS ORDERED: Magnesium Oxide TAB* 400 MG PO ONE (12:14)
--- NOTE | 2019-01-02 17:44 | DS ---
CC: Dr. Aquino* DISCHARGE SUMMARY: DATE OF ADMISSION: 01/01/19 DATE OF DISCHARGE: 01/02/19 PRIMARY CARE PROVIDER: Dr. Aquino. DISCHARGE DIAGNOSIS: Shortness of breath, chronic obstructive pulmonary disease exacerbation, and acute bronchitis. SECONDARY DIAGNOSES: 1. History of hypothyroidism. 2. Hypertension. MEDICATIONS AT DISCHARGE: Include: 1. Prednisone 40 mg daily for 2 days, then 20 mg daily for 2 days, then 10 mg daily for 2 days, then stop. 2. Doxycycline 100 mg p.o. b.i.d. for 5 days and then stop. The remaining medications are unchanged and include: 1. Fosamax every Tuesday 70 mg. 2. Lipitor 40 mg daily. 3. Lisinopril 20 mg daily. 4. Metoprolol succinate 50 mg daily. 5. Multivitamin 1 tablet daily. 6. Omeprazole 20 mg daily. 7. Torsemide 5 mg daily. 8. Levothyroxine 88 mcg daily. 9. Magnesium oxide 400 mg p.o. daily for total of 14 days, then stop. LABORATORY DATA AND STUDIES PERFORMED DURING THE HOSPITAL STAY: Included: On , white blood cell count of 13.3, hemoglobin of 12.0, hematocrit of 36, and platelets of 119. ABG at admission showed pH of 7.43, pCO2 of 32, pO2 of 74, bicarb of 23. On 01/02/19, sodium of 135, potassium 4.2, chloride 107, carbon dioxide 19, BUN 20, creatinine 0.88. Liver function test unremarkable. Magnesium of 1.5, TSH of 0.9. Influenza testing was negative. CT angiogram of the chest obtained on 01/01/19, impression: "No pulmonary embolism. Extensive centrilobular emphysematous changes predominantly of the upper lobes. Small sliding hiatal hernia." HOSPITALIZATION COURSE: Mrs. Pacheco is an 83-year-old female with history of hypertension and hypothyroidism, who presented with shortness of breath at a hospital on 01/01/19. The patient also complained of coughing up green sputum. She was diagnosed with acute bronchitis causing COPD exacerbation. CT of the chest showed centrilobular emphysema, which the patient was not aware of. She was treated with steroids and antibiotics with good results. She is going to be discharged home with a course of doxycycline for remaining 5 days and prednisone taper as above mentioned. The patient also has low magnesium which is going to be replaced over the course of next 2 weeks. The patient is to follow up with her primary care provider in approximately 4 to 7 days. CONDITION AT DISCHARGE: Stable. DISPOSITION: To home. PHYSICAL EXAM AT TIME OF DISCHARGE: Blood pressure of 135/72, heart rate of 86 and regular, respiratory rate 18, oxygen saturation 93% on room air, temperature 97.8. General: The patient is a pleasant 83-year-old female who is in no acute distress. Alert, awake, and oriented x3. HEENT: Head: Atraumatic , normocephalic. Eyes: Pupils are equal, reactive to light and accommodation. Oropharynx is clear. Mucosa moist. Neck: Supple. No JVD. No bruits bilaterally. Cardiovascular: Regular rate and rhythm. No murmurs. Respiratory : Coarse breath sounds bilaterally with scant wheezes in bilateral mid lungs and crackles at bilateral bases. Abdomen: Soft, nontender. Bowel sounds are present in all 4 quadrants. Extremities: There is trace bilateral pedal edema. Pulses +2 bilaterally. There is no clubbing or cyanosis. Neuro evaluation: Speech is clear. Cranial nerves II through XII are grossly intact. Motor strength is 5/5 bilaterally. Please note that this is a short summary of the patient's hospitalization. Please refer to further medical records for details. TIME SPENT: Approximately 35 minutes was spent on the patient's discharge. [id number]/[facility] #: [id number] [facility]
== END 2019-01-02 13:11 | disposition home or self-care (01) | DRG 192 ==
LOC: ED 00:50 → MEDTELE 05:37
PROVIDERS: ADMIT Student in an Organized Health Care Education/Training Program; ATTEND Internal Medicine
DX: J43.2 Centrilobular emphysema (principal); J20.9 Acute bronchitis, unspecified; E03.9 Hypothyroidism, unspecified; I10 Essential (primary) hypertension; E83.42 Hypomagnesemia; R60.0 Localized edema; E78.5 Hyperlipidemia, unspecified; K21.9 Gastro-esophageal reflux disease without esophagitis; M81.0 Age-related osteoporosis without current pathological fracture; R19.7 Diarrhea, unspecified; K44.9 Diaphragmatic hernia without obstruction or gangrene; I44.7 Left bundle-branch block, unspecified; I35.1 Nonrheumatic aortic (valve) insufficiency; K86.89 Other specified diseases of pancreas; R09.02 Hypoxemia; R00.0 Tachycardia, unspecified; D69.6 Thrombocytopenia, unspecified; Z88.0 Allergy status to penicillin; Z88.2 Allergy status to sulfonamides; Z88.8 Allergy status to other drugs, medicaments and biological substances; Z91.041 Radiographic dye allergy status; E78.00 Pure hypercholesterolemia, unspecified; Z86.018 Personal history of other benign neoplasm; Z87.442 Personal history of urinary calculi; Z85.828 Personal history of other malignant neoplasm of skin; Z92.3 Personal history of irradiation; Z90.49 Acquired absence of other specified parts of digestive tract; Z80.1 Family history of malignant neoplasm of trachea, bronchus and lung; Z80.41 Family history of malignant neoplasm of ovary; Z87.891 Personal history of nicotine dependence; Z87.11 Personal history of peptic ulcer disease; Z84.1 Family history of disorders of kidney and ureter; Z82.49 Family history of ischemic heart disease and other diseases of the circulatory system
CPT/HCPCS: 36415; 71045; 71275; 80053; 81003; 81015; 82803; 83605; 83735; 84100; 84443; 85025; 85060; 85610; 85730; 86140; 87040; 87086; 94640; 99284; A9270-GY; J1650; J2920; J2930; J7512; Q9967

== ENCOUNTER 2019-08-10 15:37 | Observation (INO) | payer MEDICARE ==
--- NOTE | 2019-08-10 15:53 | ED ---
Syncope/Near Syncope - HPI Summary HPI Summary: Patient is an 84 y/o F presenting to [facility] via EMS for a chief complaint of syncope on 08/10/19. Patient reports that she had a syncopal episode after having a black tarry bowel movement. Before having the bowel movement, the patient notes feeling generalized weakness and dizziness. She also notes recent constipation from radiation therapy for which she ate prunes with relief. Patient denies fever, abdominal pain, chest pain, shortness of breath, or headache. She denies any aggravating or alleviating factors. PMHx is significant for breast cancer for which she is receiving radiation therapy. PSHx is significant for a partial right mastectomy. She admits having an echocardiogram recently for a "slow valve leakage" possibly aortic regurgitation. She sees an oncologist at [place]. - History Of Current Complaint Chief Complaint: EDSyncope Time Seen by Provider: 08/10/19 15:43 Hx Obtained From: Patient Onset/Duration: Sudden Onset, Resolved Timing: Minutes Context: Loss Of Consciousness Activity At Onset: At Rest Associated Head Trauma: No Aggravating Factor(s): Nothing Alleviating Factor(s): Spontaneous Resolution Associated Signs And Symptoms: Dizzy, Weakness - Generalized - Allergies/Home Medications Allergies/Adverse Reactions: Allergies Allergy/AdvReac Type Severity Reaction Status Date / Time meperidine [From Demerol] Allergy See Comment Verified 01/01/19 00:55 Penicillins Allergy Difficulty Verified 01/01/19 00:55 Breathing red dye Allergy Hives Verified 01/01/19 00:55 Sulfa (Sulfonamide Allergy Hives Verified 01/01/19 00:55 Antibiotics) Home Medications: Home Medications Letrozole (NF) [Femara (NF)] 2.5 mg PO DAILY 08/10/19 [History Confirmed ] PMH/Surg Hx/FS Hx/Imm Hx Previously Healthy: Yes Endocrine/Hematology History: Reports: Hx Thyroid Disease - hypothyroid Denies: Hx Anticoagulant Therapy, Hx Diabetes, Hx Systemic Lupus Erythematosus Cardiovascular History: Reports: Hx Hypercholesterolemia, Hx Hypertension, Other Cardiovascular Problems/Disorders - BBB 11/25/16 ADMISSION Denies: Hx Congestive Heart Failure, Hx Pacemaker/ICD Respiratory History: Denies: Hx Asthma, Hx Chronic Obstructive Pulmonary Disease (COPD), Hx Pneumonia GI History: Reports: Hx Gall Bladder Disease, Hx Gastroesophageal Reflux Disease , Other GI Disorders - diverticulitis, GERD, BENIGN NEOPLASM COLON, APPENDICITIS History: Reports: Hx Kidney Stones, Other Problems/Disorders - URETERAL sling per pt. 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 Mother with ovarian cancer. Family History: Father with lung cancer. Mother with ovarian cancer. - Social History Occupation: Retired Alcohol Use: None Hx Substance Use: No Substance Use Type: Reports: None Hx Tobacco Use: Yes Smoking Status (MU): Former Smoker Review of Systems Negative: Fever Negative: Chest Pain Negative: Shortness Of Breath Positive: Other - Positive black tarry stool and constipation, resolved. Negative: Abdominal Pain Neurological: Other - Positive dizziness Positive: Weakness - Generalized, Syncope - Resolved. Negative: Headache All Other Systems Reviewed And Are Negative: Yes Physical Exam - Summary Physical Exam Summary: Constitutional: Well-developed, Well-nourished, Alert. (-) Distressed Skin: Warm, Dry HENT: Normocephalic; Atraumatic Eyes: Conjunctiva normal Neck: Musculoskeletal ROM normal neck. (-) JVD, (-) Stridor, (-) Nuchal rigidity Cardio: Rhythm regular, rate normal, Heart sounds normal; Intact distal pulses; Radial pulses are 2+ and symmetric. (-) Murmur Pulmonary/Chest wall: Effort normal. (-) Respiratory distress, (-) Wheezes, (-) Rales Abd: Soft, (-) tenderness, (-) Distension, (-) Guarding, (-) Rebound Musculoskeletal: (-) Edema Lymph: (-) Cervical adenopathy Neuro: Alert, Oriented x3 Psych: Mood and affect Normal Rectal: Triage Information Reviewed: Yes Vital Signs On Initial Exam: Initial Vitals Temp Pulse Resp BP Pulse Ox 97.6 F 66 16 115/60 93 08/10/19 15:42 08/10/19 15:42 08/10/19 15:42 08/10/19 15:42 08/10/19 15:42 Vital Signs Reviewed: Yes Procedures - Sedation Patient Received Moderate/Deep Sedation with Procedure: No Diagnostics - Vital Signs Vital Signs Temp Pulse Resp BP Pulse Ox 08/10/19 15:42 97.6 F 66 16 115/60 93 - Laboratory Result Diagrams: 08/10/19 16:38 08/10/19 16:38 Lab Statement: Any lab studies that have been ordered have been reviewed, and results considered in the medical decision making process. - Radiology Chest X-ray Radiology Interpretation Completed By: Radiologist Summary of Radiographic Findings: Chest X-ray IMPRESSION: FINDINGS CONSISTENT WITH COPD, NO EVIDENCE FOR ACUTE DISEASE. Reviewed by Dr. Ko. - CT Chest/Thorax CTA CT Interpretation Completed By: Radiologist Summary of CT Findings: Chest/Thorax CTA IMPRESSION: 1. No acute findings. No pulmonary embolus. 2. Emphysema. 3. Surgical change now noted in the lateral right breast with a 2.1 x 2.3 nodular opacity seen on series 2, image 69, likely representing postsurgical change, but neoplastic etiology cannot be excluded and comparison with surgical history and prior mammography is recommended. 4. Cardiomegaly. 5. Post cholecystectomy. Reviewed by Dr. Ko. - EKG 15:26 Cardiac Rate: NL - 63 BPM EKG Rhythm: Sinus Rhythm ST Segment: Normal Ectopy: None Summary of EKG Findings: An EKG at 15:26 reveals normal sinus rhythm with 63 BPM , LBBB, nml axis, nml intervals. No STEMI. No acute changes. Comparted to an EKG at 05/28/19, old LBBB. Reviewed and interpreted by Dr. Ko. 16:07 Cardiac Rate: NL - 66 BPM EKG Rhythm: Sinus Rhythm ST Segment: Normal Ectopy: None EKG Comparison: No Significant Change Summary of EKG Findings: An EKG at 16:07 reveals normal sinus rhythm with 66 BPM , LBBB, nml axis, nml intervals. No STEMI. No acute changes. No change from prior at 15:26. Course/Dx Course Of Treatment: 84 y/o F w hx BRCA on radiation, aortic regurgitation, p/w syncopal episode: Syncope. DDx: Seizure: no witnessed seizure activity, incontinence or h/o seizures to suggest seizure today. Hypoxia and hypoglycemia less likely in this patient with normal sats and BG. Cardiac issue : troponin normal, EKG with LBBB, Recent echo with reported aortic regurgitation , concern for cardiac syncope, will admit to [facility]. Mechanical: outflow obstruction like HOCM or aortic stenosis, tamponade-less likely as no murmur, non-exertional, no hypertrophy on EKG. Vessels: PE, dissection, AAA. Neg CTA chest. Volume issue: dehydration from vomiting/diarrhea/decreased PO, sepsis, GI bleed, ruptured ectopic or bleeding AAA. No signs of recent illness to suggest infection. Hb stable. Negative occult stool. Neuro: No HAGEN, no personal or family h/o cerebral aneurysm, nml neuro exam, so this is unlikely ICH or sentinel bleed. Also: vasovagal, drugs/meds, autonomic insufficiency. Patient and family agreeable to admit. - Diagnoses Provider Diagnoses: Syncope - Physician Notifications Discussed Care of Patient With: Jaime Barber - At 19:34, Dr. Jaime Barber agrees to admit the patient to [facility] with a diagnosis of syncope. Time Discussed With Above Provider: 19:34 Instructed by Provider To: Admit As Inpatient Discharge ED - Sign-Out/Discharge Documenting (check all that apply): Patient Departure - Admit - Discharge Plan Condition: Stable Disposition: ADMITTED TO [facility] - Billing Disposition and Condition Condition: STABLE Disposition: Admitted to [facility] - Attestation Statements Document Initiated by Scribe: Yes Documenting Scribe: Yara Cail Provider For Whom Scribe is Documenting (Include Credential): Zay Ko MD Scribe Attestation: IYara, scribed for Zay Ko MD on 08/10/19 at 3613. Scribe Documentation Reviewed: Yes Provider Attestation: The documentation as recorded by the scribe, Yara Cali accurately reflects the service I personally performed and the decisions made by me, Zay Ko MD Status of Scribe Document: Viewed
--- OUTSIDE RECORDS SUMMARY | 2019-08-10 16:28 | XMS REPORT | Summary of Care ---
:1935 Author Organization [facility] Address [address] [address] Care Team Providers Name Role Phone Pedro Aquino Primary Care Provider Kayla Zimmerman Keyboard Specialist Unavailable Reason for Visit Reason Comments Labs Only last done 02/15/19 Hypertension f/u BP: 148/68; not taken BP meds yet today) Breast Problem breast biopsy done and had radiation markers placed Hair Loss noticed more often and question r/t thyroid or stress? Encounter Details Date Type Department Care Team Description 06/20/2019 Office Visit [place] [facility] Pedro Aquino MD Essential hypertension (Primary Dx); Medicine [address] Hypothyroidism due to acquired atrophy of thyroid; [address] [place] [address] Hypomagnesemia; [place] [address] Ductal carcinoma in situ (DCIS) of right breast [phone] Allergies Active Allergy Reactions Severity Noted Date Comments Tape: Silk Or Adhesive Rash 04/16/2019 Demerol PRODUCTION ZONE LEADER Reaction 10/04/2006 WENT CRAZY-RIPPED CLOTHES OFF,ECT. Penicillins Respiratory Reaction 10/04/2006 Red Dye Hives 03/07/2013 Sulfa Antibiotics Hives 10/04/2006 documented as of this encounter (statuses as of 06/21/2019) Medications Medication Sig Dispensed Refills Start Date End Date Status daily vitamin PO TABS Take 1 Tab by 0 Active mouth DAILY. CALCIUM-VITAMIN Take by mouth 0 Active D-VITAMIN K (VIACTIV) *BID. 500-100-40 MG-UNT-MCG PO CHEW metoprolol succinate Take 1 Tab by 90 Tab 3 07/20/2018 Active (TOPROL XL) 50 MG Oral mouth DAILY. TABLET SR 24 HR alendronate (FOSAMAX) TAKE 1 TABLET BY 12 Tab 3 11/30/2018 Active 70 MG Oral Tab MOUTH ONCE WEEKLY MELATONIN PO Take by mouth 0 Active EVERY BEDTIME. Omeprazole delayed rel Take 20 mg by 90 Cap 3 01/10/2019 Active cap 20 MG Oral CAPSULE mouth DAILY DELAYED RELEASE NEEDED (for reflux). lisinopril (PRINIVIL, Take 1 Tab by 90 Tab 3 01/23/2019 Active ZESTRIL) 20 MG Oral mouth DAILY. Tab tramadol (ULTRAM) 50 TAKE ONE TABLET BY 50 Tab 1 02/14/2019 Active MG Oral Tab MOUTH EVERY 6 HOURS NEEDED FOR BACK PAIN - MAXIMUM DAILY DOSE OF 4 PER DAY levothyroxine TAKE 1 TABLET BY 90 Tab 3 03/16/2019 Active (SYNTHROID) 88 MCG MOUTH EVERY DAY Oral Tab BEFORE BREAKFAST atorvastatin (LIPITOR) Take 1 Tab by 90 Tab 3 06/07/2019 Active 40 MG Oral Tab mouth DAILY. Calcium Take 1 Tab by 60 Tab 3 06/12/2019 Active Carb-Cholecalciferol mouth DAILY. 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 Overview: Added automatically from request for surgery [id number] Abnormal mammogram 02/26/2019 Overview: Added automatically from request for surgery [id number] Subclavian artery stenosis, left 03/02/2018 LBBB (left bundle branch block) 07/14/2016 Essential hypertension 06/19/2015 Hypothyroidism due to acquired atrophy of thyroid 06/19/2015 Aortic regurgitation 02/21/2015 HTN (hypertension), CARE PLAN INITIATED 05/13/2014 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 Pedro Aquino Primary Care Provider: Pedro Aquino Working diagnosis: IPMN Initial Evaluation: 08/20/2012 CT scan (abd/pelvis) [facility] - Consistent w/ diverticulitis. Pancreatic head/body calcifications consistent w/ chronic pancreatitis. Pancreatic tail hypodensity measuring 1.6 cm. 10/12/2012 CT scan (abd/pelvis) [facility] - Pancreatic tail cyst 1.4 cm (unchanged from 08/2012 CT). 02/07/2013 CT scan (abd/pelvis) - Pancreatic tail cyst 1.9 x 1.8 cm. No hypervascular component on early phase imaging. No pancreatic ductal dilatation. Several small calcifications seen near pancreatic head. 02/21/2013 MRI (open) - Pancreatic tail cyst measuring 1.4 x 1.6 x 1.2 cm. No solid mass No ductal dilation. Cyst vs IPMT Labs (02/22/2013) LFT's: WNL CEA: 1.9 ng/ml CA 19-9: 4 U/ml 03/27/2013 EUS - Pancreatic tail cyst measuring 19 mm by 16 mm. There was a single compartment without septae. The outer wall of the lesion was not seen. There was no associated mass. There was no internal debris within the fluid- filled cavity. Cytology: negative for malignancy. 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: left thumb Graves disease 09/18/2007 Idiopathic Tachycardia 09/13/2007 Hyperlipidemia 09/13/2007 Osteoporosis 09/13/2007 Benign neoplasm of colon 09/13/2007 Overview: Colonoscopy performed 04/27/07 revealing colonic polyps Candidiasis of skin and nails 09/13/2007 Overview: Right breast rash Urge incontinence 09/27/2006 COPD (chronic obstructive pulmonary disease) documented as of this encounter (statuses as of 06/21/2019) Resolved Problems Problem Noted Date Resolved Date Hypothyroidism 09/13/2007 06/19/2015 Personal history of allergy to penicillin 03/30/2006 05/29/2008 Personal history of allergy to other antibiotic agent 03/30/2006 05/29/2008 Personal history of allergy to narcotic agent 03/30/2006 05/29/2008 documented as of this encounter (statuses as of 06/21/2019) Immunizations Name Administration Dates Next Due Influenza (IM) Preservative Free 05/12/2016, 06/13/2013, 05/11/2012, 05/12/2011, 05/29/2008 Influenza Vaccine High Dose 06/07/2019, 05/16/2018, 06/27/2017, 05/12/2016, 05/12/2015, 06/10/2014 PNEUMOCOCCAL POLYSACCHARIDE VACCINE 2010 Pneumococcal Conjugate(13 Valent) 10/14/2014 Tetanus Vaccine 05/17/2011 documented as of this encounter Social History Tobacco Use Types Packs/Day Years Used Date Former Smoker Smokeless Tobacco: Never Used Comments: quit 1999 Alcohol Use Drinks/Week oz/Week Comments No 0 Standard drinks or equivalent 0.0 Sex Assigned at Date Recorded Not on file Job Start Date Occupation Industry Not on file Not on file Not on file Travel History Travel Start Travel End No recent travel history available. documented as of this encounter Last Filed Vital Signs Vital Sign Reading Time Taken Comments Blood Pressure 148/68 06/20/2019 11:58 AM EST Pulse 60 06/20/2019 11:58 AM EST Temperature - - Respiratory Rate - - Oxygen Saturation - - Inhaled Oxygen Concentration - - Weight 71.7 kg (158 lb) 06/20/2019 11:58 AM EST Height - - Body Mass Index 24.38 06/12/2019 1:38 PM EST documented in this encounter Patient Instructions Patient InstructionsPedro Aquino MD - 06/20/2019 11:40 AM ESTContinue all your same medicines. Agree with taking calcium with vitamin D every day, and alendronate every week, to keep your bones strong and prevent fractures. Agree with proceeding with radiation therapy in [place]. Agree with proceeding with the anti-breast cancer drugs that Dr. Gomez recommended (letrozole 2.5 mg a day). I will reach out to the doctor, to make sure we are all on the same page. Get lab work today. I will send you the results with a letter. Follow-up with Dr. Aquino in 3 months documented in this encounter Progress Notes Pedro Aquino MD - 06/20/2019 11:40 AM EST PATIENT: Ruth Pacheco : 1935 DATE OF SERVICE: 06/20/2019 CHIEF COMPLAINT: Chief Complaint Patient presents with Labs Only last done 02/15/19 Hypertension f/u BP: 148/68; not taken BP meds yet today) Breast Problem breast biopsy done and had radiation markers placed Hair Loss noticed more often and question r/t thyroid or stress? Subjective HISTORY OF PRESENT ILLNESS: Ruth Pacheco is a 84-y.o. female. HPI She had an abnormal mammogram, ultimately had excision of a ductal carcinoma in situ, ER positive, IL positive. It was recommended by her medical oncologist Dr. Gomez that she have adjuvant treatment with radiation therapy and therapy with letrozole. She wanted to discuss this with me, and I told her it was a good idea to proceed with the radiation therapy and the letrozole. Since aromatase inhibitor therapy can worsen osteoporosis, she had a bone densitometry showing slight worsening of the T score, in the range of osteoporosis especially in the right hip. Her FRAX scoreshowed 6% risk of major fracture in the next 10 years. She was prescribed calcium with vitamin D and recommended to continue taking alendronate, which she has been taking for several years. I told her I agreed with these recommendations. Repeat bone density will be done in 2 years. 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 cyst removed yrs ago Parasite infection 05/2011 right foot Postmenopausal Squamous cell carcinoma nos left thumb, Radiation Therapy Urge incontinence 09/27/2006 UTI (urinary tract infection) Family History Problem Relation Age of Onset Heart Mother CAD-Pacemaker Cervical Cancer Mother ppostmenopausal Cancer Father Lung Cancer Heart Father Heart disease unspecified Current Outpatient Medications Medication Sig alendronate (FOSAMAX) 70 MG Oral Tab TAKE 1 TABLET BY MOUTH ONCE WEEKLY atorvastatin (LIPITOR) 40 MG Oral Tab Take 1 Tab by mouth DAILY. Calcium Carb-Cholecalciferol (CALCIUM 1000 + D) 1000-800 MG-UNIT Oral Tab Take 1 Tab by mouthDAILY. CALCIUM-VITAMIN D-VITAMIN K (VIACTIV) 500-100-40 MG-UNT-MCG PO CHEW Take by mouth *BID. daily vitamin PO TABS Take 1 Tab by mouth DAILY. levothyroxine (SYNTHROID) 88 MCG Oral Tab TAKE 1 TABLET BY MOUTH EVERY DAY BEFORE BREAKFAST lisinopril (PRINIVIL, ZESTRIL) 20 MG Oral Tab Take 1 Tab by mouth DAILY. MELATONIN PO Take by mouth EVERY BEDTIME. metoprolol succinate (TOPROL XL) 50 MG Oral TABLET SR 24 HR Take 1 Tab by mouth DAILY. Omeprazole delayed rel cap 20 MG Oral CAPSULE DELAYED RELEASE Take 20 mg by mouth DAILY NEEDED (for reflux). tramadol (ULTRAM) 50 MG Oral Tab TAKE ONE TABLET BY MOUTH EVERY 6 HOURS NEEDED FOR BACK PAIN - MAXIMUM DAILY DOSE OF 4 PER DAY No current facility-administered medications for this visit. Allergies Allergen Reactions Adhesive [Tape: Silk Or Adhesive] Rash Demerol PRODUCTION ZONE LEADER Reaction WENT CRAZY-RIPPED CLOTHES OFF,ECT. Pcn [Penicillins] Respiratory Reaction Red Dye Hives Sulfa Antibiotics Hives Social History Socioeconomic History Marital status: Spouse name: Not on file Number of children: Not on file Years of education: Not on file Highest education level: Not on file Occupational History Not on file Social Needs Financial resource strain: Not on file Food insecurity: Worry: Not on file Inability: Not on file Transportation needs: Medical: Not on file Non-medical: Not on file Tobacco Use Smoking status: Former Smoker Smokeless tobacco: Never Used Tobacco comment: quit 1999 Substance and Sexual Activity Alcohol use: No Alcohol/week: 0.0 standard drinks Drug use: No Sexual activity: Yes Partners: Male Lifestyle Physical activity: Days per week: Not on file Minutes per session: Not on file Stress: Not on file Relationships Social connections: Talks on phone: Not on file Gets together: Not on file Attends pentecostalism service: Not on file Active member of club or organization: Not on file Attends meetings of clubs or organizations: Not on file Relationship status: Not on file Intimate partner violence: Fear of current or ex partner: Not on file Emotionally abused: Not on file Physically abused: Not on file Forced sexual activity: Not on file Other Topics Concern Back Care Not Asked Bike Helmet Not Asked Blood Transfusions Not Asked Caffeine Concern Not Asked Exercise Not Asked Hobby Hazards Not Asked International Travel Not Asked Service Not Asked Occupational Exposure Not Asked Seat Belt Not Asked Self-Exams Not Asked Sleep Concern Not Asked Special Diet Not Asked Stress Concern Not Asked Weight Concern Not Asked Social History Narrative Lives in [place]. No pets. REVIEW OF SYSTEMS: Review of Systems Constitutional: Positive for malaise/fatigue. Negative for weight loss. HENT: Negative for congestion. Eyes: Negative for blurred vision. Respiratory: Negative for shortness of breath. Cardiovascular: Negative for chest pain. Gastrointestinal: Negative for abdominal pain. Genitourinary: Negative. Musculoskeletal: Negative for joint pain. Skin: Negative for rash. Neurological: Negative for dizziness. Endo/Heme/Allergies: Negative for polydipsia. Psychiatric/Behavioral: The patient is nervous/anxious. Objective PHYSICAL EXAM: VITALS: BP 148/68 | Pulse 60 | Wt 158 lb (71.7 kg) | LMP (LMP Unknown) | BMI 24.38 kg/m Body mass index is 24.38 kg/m. Physical Exam Alert, oriented, in no acute distress. Vitals as above. HEENT: unremarkable. Neck: No palpable lymphadenopathy in the submandibular, submental, anterior cervical, posterior cervical, or occipital chains, nor in the supraclavicular spaces. No JVD, thyromegaly. LUNGS: clear. HEART: Regular rate and rhythm. EXTREMITIES: no cyanosis, clubbing, or edema. ASSESSMENT / IMPRESSION: ICD-9-CM ICD-10-CM 1. Essential hypertensioncontrolled 401.9 I10 COMPREHENSIVE METABOLIC PANEL LIPID PROFILE 2. Hypothyroidism due to acquired atrophy of thyroidtreated 244.8 E03.4 THYROID STIMULATING HORMONE 246.8 FREE T4 3. Hypomagnesemiahistory of, recheck level possibly due to omeprazole. 275.2 E83.42 MAGNESIUM LEVEL 4. Ductal carcinoma in situ (DCIS) of right breastagree with oncology's recommendation to proceed with radiation therapy and letrozole. I told her I wanted to confer with her medical oncologist,and when we are all on the same page, I can prescribe the letrozole. 233.0 D05.11 CBC WITH DIFFERENTIAL Patient Instructions Continue all your same medicines. Agree with taking calcium with vitamin D every day, and alendronate every week, to keep your bones strong and prevent fractures. Agree with proceeding with radiation therapy in [place]. Agree with proceeding with the anti-breast cancer drugs that Dr. Gomez recommended (letrozole 2.5 mg a day). I will reach out to the doctor, to make sure we are all on the same page. Get lab work today. I will send you the results with a letter. Follow-up with Dr. Aquino in 3 months Author: Pedro Aquino MD 06/21/2019 17:48 documented in this encounter Plan of Treatment Date Type Specialty Care Team Description 07/02/2019 Office Visit Hematology and Oncology Violet Gomez MD [address] [id number] 07/19/2019 Orders Only Cardiology 07/25/2019 Office Visit Cardiology Indra Bryan MD [address] [place] [address] [phone] 11/05/2019 Office Visit General Surgery Torsten Ramires MD [address] [address] [phone] Health Maintenance Due Date Last Done Comments ZOSTER IMMUNIZATION SERIES 1987 (1 of 2) MEDICARE ANNUAL WELLNESS 05/24/2017 05/24/2016 (Postponed), VISIT 01/02/2015 (Previously completed), 05/12/2011 COLONOSCOPY SCREENING 02/16/2020 02/15/2017, 05/05/2010, 05/05/2010, Additional history exists DEPRESSION SCREENING 02/16/2020 02/15/2019, 02/15/2019 FALL RISK ASSESSMENT 06/12/2020 06/12/2019, 06/12/2019 PNEUMOCOCCAL 65+YRS Completed 10/14/2014, 2010 INFLUENZA VACCINE Completed 06/07/2019, 05/16/2018, 06/27/2017, Additional history exists HPV IMMUNIZATION SERIES Aged Out No longer eligible based on patient's age to complete this topic MENINGOCOCCAL VACCINE IMM Aged Out No longer eligible based on patient's age to complete this topic documented as of this encounter Goals Goal Patient Goal Associated Recent Patient-Stated? Author Type Problems Progress Blood Pressure Blood Pressure HTN 148/68 No Skezas, < 140/90 (hypertension), (06/20/2019 MD Pedro CARE PLAN 11:58 AM EST) INITIATED Note: Hypertension Care Plan Based on the patient's clinical history and according to JNC 8 guidelines target blood pressure goal is less than 140/90. Based on the patient's last blood pressure of BP: 132/70 mmHg the patient is at at goal. As your provider, it is important that I advise you regarding: your current medications and help you with any challenges you may face taking your medications as directed (ex. instructions, cost, side effects, and interactions). lifestyle changes: exercise, weight reduction, diet, dietary sodium reduction and medication compliance your clinical goals and how you can achieve success: weight reduction, exercise plan and diet improvements medication management: adjusted medications as appropriate patient education/self-management tools provided: Current self-management tools adequate To successfully manage my Hypertension I will: monitor my blood pressure daily, understanding that my goal is less than 140/ 90 per my healthcare provider's recommendation. I will schedule an appointment with my provider if consistent abnormal readings greater than 160/100. take medications every day as prescribed by my healthcare provider and if unable to take them I will discuss with my provider. monitor for symptoms of chest pain, chest tightness/pressure, irregular heartbeat, persistent dizziness, radiating arm pain, and neck or jaw pain. If any of these symptoms are noticed I will seek medical attention immediately by calling 911 exercise/walk 30 minutes 5 day(s) per week. If I experience chest pain, chest tightness, or shortness of breath, I will seek medical attention immediately. follow a diet rich in fruits, vegetables, and low-fat dairy products with reduced content of saturated & total fat. I will reduce my sodium intake daily. An example is the DASH diet. To obtain more information please refer to the DASH Eating Plan listed in Educational Resources. record my blood pressure results. [employer] is safe and secure way for you to do this in your medical record online. try to obtain an ideal body weight. My recent weight was Weight: 166 lb ( 75.297 kg). My weight loss goal for my next office visit is 162. limit alcohol consumption. For men two drinks per day and women one drink per day. if currently smoking, will discuss how to quit smoking with my healthcare provider and work towards quitting. Educational Resources: National Heart, Lung, & Blood Fowler http://nhlbi.nih.gov/hbp/index.html The DASH Diet Eating Plan http://www.nhlbi.nih.gov/health/health-topics/ topics/dash/ Academy of Nutrition & DIetetics http://eatright.org National Smoking Cessation Site http://smokefree.gov Blood Pressure Blood Pressure HTN (hypertension), 148/68 No Skezas, < 140/90 CARE PLAN INITIATED (06/20/2019 11:58 MD Pedro AM [facility]) Note: Hypertension Care Plan Based on the patient's clinical history and according to JNC 8 guidelines target blood pressure goal is less than 140/90. Based on the patient's last blood pressure of BP: 134/76 mmHg the patient is at at goal. As your provider, it is important that I advise you regarding: your current medications and help you with any challenges you may face taking your medications as directed (ex. instructions, cost, side effects, and interactions). Important lifestyle changes: exercise, weight reduction, diet, dietary sodium reduction, medication compliance and moderation of alcohol consumption your clinical goals and how you can achieve success: weight reduction, exercise plan and diet improvements medication management: adjusted medications as appropriate patient education/self-management tools provided: Current self-management tools adequate To successfully manage my Hypertension I will: monitor my blood pressure daily, understanding that my goal is less than 140/ 90 per my healthcare provider's recommendation. I will schedule an appointment with my provider if consistent abnormal readings greater than 160/100. take medications every day as prescribed by my healthcare provider and if unable to take them I will discuss with my provider. monitor for symptoms of chest pain, chest tightness/pressure, irregular heartbeat, persistent dizziness, radiating arm pain, and neck or jaw pain. If any of these symptoms are noticed I will seek medical attention immediately by calling 911 exercise/walk 30 minutes 5 day(s) per week. If I experience chest pain, chest tightness, or shortness of breath, I will seek medical attention immediately. follow a diet rich in fruits, vegetables, and low-fat dairy products with reduced content of saturated & total fat. I will reduce my sodium intake daily. An example is the DASH diet. To obtain more information please refer to the DASH Eating Plan listed in Educational Resources. record my blood pressure results. [employer] is safe and secure way for you to do this in your medical record online. try to obtain an ideal body weight. My recent weight was Weight: 164 lb ( 74.39 kg). My weight loss goal for my next office visit is 164 lb. limit alcohol consumption. For men two drinks per day and women one drink per day. if currently smoking, will discuss how to quit smoking with my healthcare provider and work towards quitting. Educational Resources: National Heart, Lung, & Blood Fowler http://nhlbi.nih.gov/hbp/index.html The DASH Diet Eating Plan http://www.nhlbi.nih.gov/health/health-topics/ topics/dash/ Academy of Nutrition & DIetetics http://eatright.org National Smoking Cessation Site http://smokefree.gov Blood Pressure < Blood Pressure 148/68 (06/20/2019 11:58 No Pedro Aquino MD 150/90 AM EST) Note: This is an individualized treatment (blood pressure) goal for Ruth Pacheco: Displayed above (on the left) is your goal for blood pressure control. Your most recent blood pressure is also shown above, on the right. You should try to achieve blood pressures that are lower than your goal listed above (on the left). Keep immunizations current Lifestyle Pedro Velazquez MD Note: This is an individualized lifestyle goal for Ruth Pacheco: Please be sure to keep up-to-date on recommended immunizations. For example, this would include a yearly influenza vaccine. Immunization status can be seen by looking at the Health Maintenance sections of your [facility], Plan of Care, and any After Visit Summaries. Take all prescribed medications as directed Self-management Pedro Velazquez MD Note: This is an individualized self-management goal for Ruth Pacheco: Please take all prescribed medications as directed. 1. Do not skip doses. If you cannot afford your medications, talk with your doctor. 2. Use a pill reminder system such as a pill box if needed. Your pharmacist can help you with this. 3. Contact your Pharmacy 5 days before your medication runs out. If you cannot take your medications for any reasons, talk with your doctor. 4. Please bring all of your medication bottles and inhalers (or a list of all your medications/inhalers) with you to every visit. Potential barriers to meeting all of your care plan goals will continue to be addressed on an ongoing basis. documented as of this encounter Implants Implanted Type Area Manager Utilization Management Device Shelf Model / Serial Identifier Expiration Date / Lot Iol, [id number] Diopter - [id number] Left: Eye STORZ [id number] / Implanted: Qty: 1 on 01/24/2012 at [facility] / [id number] documented as of this encounter Procedures Procedure Name Priority Date/Time Associated Diagnosis Comments CBC WITH DIFFERENTIAL Routine 06/20/2019 1:12 Ductal carcinoma in Results for this PM EST situ (DCIS) of right procedure are in breast the results section. THYROID STIMULATING Routine 06/20/2019 1:12 Hypothyroidism due to Results for this HORMONE PM EST acquired atrophy of procedure are in thyroid the results section. MAGNESIUM LEVEL Routine 06/20/2019 1:12 Hypomagnesemia Results for this PM EST procedure are in the results section. LIPID PROFILE Routine 06/20/2019 1:12 Essential hypertension Results for this PM EST procedure are in the results section. FREE T4 Routine 06/20/2019 1:12 Hypothyroidism due to Results for this PM EST acquired atrophy of procedure are in thyroid the results section. COMPREHENSIVE Routine 06/20/2019 1:12 Essential hypertension Results for this METABOLIC PANEL PM EST procedure are in the results section. documented in this encounter Results MAGNESIUM LEVEL (06/20/2019 1:12 PM EST) Magnesium 1.6 1.6 - 2.3 MG/DL [place] [employer] [facility] Specimen Blood - Blood specimen (specimen) Performing Organization Address City/[facility] Phone Number URIBEStormP[employer] [facility] [address] [address] FREE T4 (06/20/2019 1:12 PM EST) Free T4 1.4 0.8 - 2.2 NG/DL [facility] Specimen Blood - Blood specimen (specimen) Performing Organization Address City/[facility] Phone Number [facility] [address] [address] LIPID PROFILE (06/20/2019 1:12 PM EST) Cholesterol 161 <200 mg/dl [facility] HDL Cholesterol 58 >50 mg/dl [facility] Triglycerides 129 <150 mg/dl [facility] LDL Cholesterol 77 <100 MG/DL [facility] Cholesterol / HDL Ratio 2.8 RATIO [facility] LDL / HDL Ratio 1.3 [facility] Non-HDL Cholesterol 103 0 - 130 MG/DL [facility] Specimen Blood - Blood specimen (specimen) Performing Organization Address [facility] Phone Number [facility] [address] [address] THYROID STIMULATING HORMONE (06/20/2019 1:12 PM EST) TSH 4.54 0.47 - 4.68 uIu/ml [facility] Specimen Blood - Blood specimen (specimen) Performing Organization Address City/[facility] Phone Number [facility] [address] [place] [address] COMPREHENSIVE METABOLIC PANEL (06/20/2019 1:12 PM EST) Sodium 138 134 - 145 mmol/L [facility] Potassium 4.3 3.5 - 5.1 mmol/L [facility] Chloride 101 98 - 107 mmol/L [facility] CO2 26 22 - 30 mmol/L [facility] Calcium 10.2 (H) 8.3 - 10.1 mg/dl [facility] Albumin 4.2 3.5 - 5.0 g/dl [facility] BUN 17 7 - 17 mg/dl [facility] Creatinine 0.9 0.7 - 1.2 mg/dl [facility] Glucose 109 (H) 70 - 99 mg/dl [facility] Total Protein 7.6 6.3 - 8.2 g/dl [facility] Total Bilirubin 0.8 0.0 - 1.1 MG/DL [facility] AST 42 15 - 46 U/L [facility] ALT 32 9 - 52 U/L [facility] Alkaline 44 40 - 150 U/L [facility] Phosphatase [facility] eGFR 60 See Interpretation [facility] Comment: Below ml/min/1.73ml GROUP Estimated GFR Interpretation: LABORATORY Above 60ml/min/1.73m2 = Normal Renal Function 30-59 ml/min/1.73m2 = Stage 3 Chronic Kidney Disease 15-29 ml/min/1.73m2 = Stage 4 Chronic Kidney Disease Less than 15 ml/min/1.73m2 = Stage 5 Chronic Kidney Disease The GFR value is calculated using the Modification of Diet in Renal Disease ( MDRD) Study Equation which can be found at: https://www.kidney.org/content/qrln-lqppy-pczkagro BUN/Creatinine 19 6 - 22 RATIO [facility] Anion Gap 11 3 - 11 mmol/L [facility] A/G Ratio 1.2 0.8 - 2.0 ratio [facility] Specimen Blood - Blood specimen (specimen) Performing Organization Address City/State/Zipcode Phone Number [facility] [address] [place] [address] CBC WITH DIFFERENTIAL (06/20/2019 1:12 PM EST) WBC Count 6.62 3.98 - 10.04 K/uL [facility] RBC Count 4.56 3.93 - 5.22 M/UL [facility] Hemoglobin 13.9 11.2 - 15.7 g/dL [facility] Hematocrit 43.8 34.1 - 44.9 % [facility] MCV 96.1 (H) 79.4 - 94.8 FL [facility] MCH 30.5 25.6 - 32.2 PG [facility] MCHC 31.7 (L) 32.2 - 35.5 g/dL [facility] Platelet Count 149 (L) 182 - 369 K/uL [facility] MPV 10.8 9.4 - 12.3 FL [facility] RDW 12.5 11.7 - 14.4 % [facility] Neutrophil % 59.5 34.0 - 71.1 % [facility] Lymphocyte % 30.4 19.3 - 51.7 % [facility] Monocyte % 7.6 4.7 - 12.5 % [facility] Eosinophil % 1.4 0.7 - 5.8 % [facility] Basophil % 0.9 0.1 - 1.2 % [facility] nRBC % 0.0 0.0 - 0.2 % [facility] Neutrophil # 3.95 1.56 - 6.13 K/UL [facility] Lymphocyte # 2.01 1.18 - 3.74 K/UL [facility] Monocyte # 0.50 0.24 - 0.86 K/UL [facility] Eosinophil # 0.09 0.04 - 0.36 K/UL [facility] Basophil # 0.06 0.01 - 0.08 K/UL [facility] Immature Gran % 0.2 0.0 - 0.4 % [facility] Immature Gran # 0.01 0.00 - 0.03 K/uL [facility] NRBC # 0.00 0.00 - 0.12 K/uL [facility] Specimen Blood - Blood specimen (specimen) Performing Organization Address City/State/Zipcode Phone Number [facility] [address] [address] [phone] documented in this encounter Visit Diagnoses Diagnosis Essential hypertension - Primary Unspecified essential hypertension Hypothyroidism due to acquired atrophy of thyroid Hypomagnesemia 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CIAL [facility] CARE xxxxxxxxxxx 2016-Present [facility] OPTIONS Guarantor Name Account Type Relation to Date of Phone Billing Patient Address Ruth Pacheco Personal/Family [address] (Home) [place], [place] [phone] (Work) documented as of this encounter"
--- OUTSIDE RECORDS SUMMARY | 2019-08-10 16:28 | XMS REPORT | Summary of Care ---
:1935 Author Organization [facility] Address [address] [address] Care Team Providers Name Role Phone Miles Pedro Primary Care Provider Kayla Zimmerman Reformatory Attendant Unavailable Reason for Referral Refer to Department Only (Routine) Status Reason Specialty Diagnoses / Referred By Referred To Procedures Contact Contact Closed Radiation Oncology Diagnoses Ductal carcinoma in situ (DCIS) of right breast Violet Gomez MD [address] [address] Reason for Visit Refer to Department Only (Routine) Status Reason Specialty Diagnoses / Referred By Referred To Procedures Contact Contact Closed Radiation Oncology Diagnoses Ductal carcinoma in situ (DCIS) of right breast Violet Gomez MD [address] [address] Encounter Details Date Type Department Care Team Description 06/12/2019 Hospital Encounter [facility] Radiation Therapy Repeat Series [address] [id number] Allergies Active Allergy Reactions Severity Noted Date Comments Tape: Silk Or Adhesive Rash 04/16/2019 Demerol MACHINE STUFFER AUTOMATIC Reaction 10/04/2006 WENT CRAZY-RIPPED CLOTHES OFF,ECT. Penicillins Respiratory Reaction 10/04/2006 Red Dye Hives 03/07/2013 Sulfa Antibiotics Hives 10/04/2006 documented as of this encounter (statuses as of 06/14/2019) Medications Medication Sig Dispensed Refills Start Date [...] as of this encounter (statuses as of 06/14/2019) Active Problems Problem Noted Date Ductal carcinoma in situ (DCIS) of right breast 04/16/2019 Overview: Added automatically from request for surgery [id number] Abnormal mammogram 02/26/2019 Overview: Added automatically from request for surgery [id number] Subclavian artery stenosis, left 03/02/2018 LBBB (left [...] IPMN Initial Evaluation: 08/20/2012 CT scan (abd/pelvis) [facility] - Consistent w/ diverticulitis. Pancreatic head/body calcifications consistent w/ chronic pancreatitis. Pancreatic tail hypodensity measuring 1.6 cm. 10/12/2012 CT scan (abd/pelvis) [facility] - Pancreatic tail cyst 1.4 cm [...] positive 10/29/2013 [facility]CP at [facility]--Ordered as MR Abdomen without contrast 1.2 X 0.7 X 1.0 cm simple cyst without concerning imaging characteristics 05/2014 2 pancreatic tail cysts--7X6 mm and 5X4 mm February 2015 [facility]CP at [facility] in [place], [place] 1.4X0.4X1.1 cm cyst in the pancreatic [...] as of this encounter (statuses as of 06/14/2019) Resolved Problems Problem Noted Date Resolved Date Hypothyroidism 09/13/2007 06/19/2015 Personal history of allergy to penicillin 03/30/2006 05/29/2008 Personal history of allergy to other antibiotic agent 03/30/2006 05/29/2008 Personal history of allergy to narcotic agent 03/30/2006 05/29/2008 documented as of this encounter (statuses as of 06/14/2019) Immunizations Name Administration Dates Next Due Influenza (IM) Preservative Free 05/12/2016, 06/13/2013, 05/11/2012, 05/12/2011, 05/29/2008 Influenza Vaccine High Dose 05/16/2018, 06/27/2017, 05/12/2016, 05/12/2015, 06/10/2014 PNEUMOCOCCAL POLYSACCHARIDE [...] of this encounter Last Filed Vital Signs Not on filedocumented in this encounter Plan of Treatment Date Type Specialty Care Team Description 06/20/2019 Office Visit Internal Medicine Pedro Aquino MD [address] [place], [place] [id number] 07/02/2019 Office Visit Hematology and Oncology Violet Gomez MD [address] [address] 07/19/2019 Orders Only Cardiology 07/25/2019 Office Visit Cardiology Indra Bryan MD [address] [place] [address] [phone] 11/05/2019 Office Visit General Surgery Torsten Ramires MD [address] [address] Name Type Priority Associated Diagnoses Order Schedule REFER TO RADIATION Referral Routine Ductal carcinoma in 1 Occurrences starting ONCOLOGY/THERAPY situ (DCIS) of right 06/12/2019 until breast 06/12/2019 Health Maintenance Due Date Last Done Comments ZOSTER IMMUNIZATION SERIES 1987 (1 of 2) MEDICARE ANNUAL WELLNESS 05/24/2017 05/24/2016 (Postponed), VISIT 01/02/2015 (Previously completed), 05/12/2011 INFLUENZA VACCINE (#1) 2019 05/16/2018, 06/27/2017, 05/12/2016, Additional history exists COLONOSCOPY SCREENING 02/16/2020 02/15/2017, 05/05/2010, 05/05/2010, Additional history exists DEPRESSION SCREENING 02/16/2020 02/15/2019, 02/15/2019 FALL RISK ASSESSMENT 06/12/2020 06/12/2019, 06/12/2019 PNEUMOCOCCAL 65+YRS Completed 10/14/2014, 2010 HPV IMMUNIZATION SERIES Aged Out No longer eligible based on patient's age to complete this topic MENINGOCOCCAL VACCINE IMM Aged Out No longer eligible based on patient's age to complete this topic documented as of this encounter Goals Goal Patient Goal Associated Recent Patient-Stated? Author Type Problems Progress Blood Pressure Blood Pressure HTN 117/58 No Miles, < 140/90 (hypertension), (06/12/2019 MD Pedro CARE PLAN 1:38 PM EST) INITIATED Note: Hypertension Care Plan Based [...] Educational Resources. record my blood pressure results. [employer] is safe and secure way for you [...] Educational Resources: National Heart, Lung, & Blood [place] http://nhlbi.nih.gov/hbp/index.html The DASH Diet Eating Plan http://www.nhlbi.nih.gov/health/health-topics/ topics/dash/ Academy of Nutrition & DIetetics http://eatright.org National Smoking Cessation Site http://smokefree.gov Blood Pressure Blood Pressure HTN (hypertension), 117/58 No [place], < 140/90 CARE PLAN INITIATED (06/12/2019 1:38 MD Pedro PM EST) Note: Hypertension Care Plan Based on the [...] Educational Resources. record my blood pressure results. [employer] is safe and secure way for you [...] Educational Resources: National Heart, Lung, & Blood [place] http://nhlbi.nih.gov/hbp/index.html The DASH Diet Eating Plan http://www.nhlbi.nih.gov/health/health-topics/ topics/dash/ Academy of Nutrition & DIetetics http://eatright.org National Smoking Cessation Site http://smokefree.gov Blood Pressure < Blood Pressure 117/58 (06/12/2019 1:38 No Pedro Aquino MD 150/90 PM EST) Note: This is an individualized treatment (blood pressure) goal for Ruth Pacheco: Displayed above (on the left) is your goal for blood pressure control. Your most recent blood pressure is also shown above, on the right. You should try to achieve blood pressures that are lower than your goal listed above (on the left). Keep immunizations current Lifestyle No Pedro Aquino MD Note: This is an individualized lifestyle goal for Ruth Pacheco: Please be sure to keep up-to-date on recommended immunizations. For example, this would include a yearly influenza vaccine. Immunization status can be seen by looking at the Health Maintenance sections of your e[employer], Plan of Care, and any After Visit Summaries. Take all prescribed medications as directed Self-management No Pedro Aquino MD Note: This is an individualized self-management [...] of this encounter Implants Implanted Type Area Benzene Washer Operator Device Shelf Model / Serial Identifier Expiration Date / Lot Iol, [id number] 23.0 Diopter - [id number] Left: Eye STORZ [id number] / Implanted: Qty: 1 on 01/24/2012 at [facility] / [id number] documented as of this encounter Results Not on filedocumented in this encounter Visit Diagnoses Diagnosis Ductal carcinoma in situ (DCIS) of right breast documented in this encounter Insurance Payer Benefit Plan / Subscriber ID Effective Dates Phone Address Type Group MEDICARE MEDICARE PART A xxxxxxxxxxx 2002-Present Medicare & B [facility] COMMERCIAL [facility] CARE xxxxxxxxxxx 2016-Present [facility] OPT[employer] Guarantor Name Account Type Relation to Date of Phone Billing Patient Address Ruth Pacheco Personal/Family 1935 [address] (Home) [place], [place] [phone] (Work) documented as of this encounter
--- OUTSIDE RECORDS SUMMARY | 2019-08-10 16:28 | XMS REPORT | Summary of Care ---
:1935 Author Organization [facility] Address [address] [place] [address] Care Team Providers Name Role Phone Pedro Aquino Primary Care Provider Kayla Zimmerman Bridge Manager Unavailable Reason for Visit Reason Comments Follow-up No Labs Encounter Details Date Type Department Care Team Description 07/02/2019 Office Visit Alivia Hematology Jason, Ductal carcinoma in situ (DCIS) of right breast (Primary Dx); Oncology MD Violet Osteoporosis, unspecified osteoporosis type, unspecified pathological fracture presence [address] [place] [id number] [place] [address] Allergies Active Allergy Reactions Severity Noted Date Comments Tape: Silk Or Adhesive Rash 04/16/2019 Demerol HOME AND FAMILY LIVING PROFESSOR Reaction 10/04/2006 WENT CRAZY-RIPPED CLOTHES OFF,ECT. Penicillins Respiratory Reaction 10/04/2006 Red Dye Hives 03/07/2013 Sulfa Antibiotics Hives 10/04/2006 documented as of this encounter (statuses as of 07/02/2019) Medications Medication Sig Dispensed Refills Start Date [...] 1000 + D) 1000-800 MG-UNIT Oral Tab letrozole (FEMARA) 2.5 Take 1 Tab by 30 Tab 3 07/02/2019 Active MG Oral Tab mouth DAILY. documented as of this encounter (statuses as of 07/02/2019) Active Problems Problem Noted Date Ductal carcinoma in situ (DCIS) of right breast 04/16/2019 Overview: Added automatically from request for surgery [id number] Abnormal mammogram 02/26/2019 Overview: Added automatically from request for surgery [id number] Subclavian artery stenosis, left 03/02/2018 LBBB (left [...] IPMN Initial Evaluation: 08/20/2012 CT scan (abd/pelvis) [facility] - Consistent w/ diverticulitis. Pancreatic head/body calcifications consistent w/ chronic pancreatitis. Pancreatic tail hypodensity measuring 1.6 cm. 10/12/2012 CT scan (abd/pelvis) [facility] - Pancreatic tail cyst 1.4 cm (unchanged [...] positive 10/29/2013 MRCP at [facility]--Ordered as MR Abdomen without contrast 1.2 X 0.7 X 1.0 cm simple cyst without concerning imaging characteristics 05/2014 2 pancreatic tail cysts--7X6 mm and 5X4 mm February 2015 [facility]CP at [facility] in [place], [place] 1.4X0.4X1.1 cm cyst in the pancreatic [...] as of this encounter (statuses as of 07/02/2019) Resolved Problems Problem Noted Date Resolved Date Hypothyroidism 09/13/2007 06/19/2015 Personal history of allergy to penicillin 03/30/2006 05/29/2008 Personal history of allergy to other antibiotic agent 03/30/2006 05/29/2008 Personal history of allergy to narcotic agent 03/30/2006 05/29/2008 documented as of this encounter (statuses as of 07/02/2019) Immunizations Name Administration Dates Next Due Influenza (IM) Preservative Free 05/12/2016, 06/13/2013, 05/11/2012, 05/12/2011, 05/29/2008 Influenza Vaccine High Dose 06/07/2019, 05/16/2018, 06/27/2017, 05/12/2016, 05/12/2015, 06/10/2014 PNEUMOCOCCAL POLYSACCHARIDE VACCINE 2010 Pneumococcal Conjugate(13 Valent) 10/14/2014 Tetanus Vaccine 05/17/2011 documented as of this encounter Social History Tobacco Use Types Packs/Day Years Used Date Former Smoker Smokeless Tobacco: Never Used Comments: quit 2000 Alcohol Use Drinks/Week oz/Week Comments No 0 Standard drinks or equivalent 0.0 Sex Assigned at Date Recorded Not on file Job Start Date Occupation Industry Not on file Not on file Not on file Travel History Travel Start Travel End No recent travel history available. documented as of this encounter Last Filed Vital Signs Vital Sign Reading Time Taken Comments Blood Pressure 132/60 07/02/2019 10:55 AM EST Pulse 62 07/02/2019 10:55 AM EST Temperature 36.4 07/02/2019 10:55 AM EST C (97.6 F) Respiratory Rate 14 07/02/2019 10:55 AM EST Oxygen Saturation - - Inhaled Oxygen Concentration - - Weight 71 kg (156 lb 9.6 oz) 07/02/2019 10:55 AM EST Height 170.2 cm (5' 7") 07/02/2019 10:55 AM EST Body Mass Index 24.53 07/02/2019 10:55 AM EST documented in this encounter Patient Instructions Patient InstructionsViolet Gomez MD - 07/02/2019 11:00 AM ESTReturn appointments timin months Provider type: GEORGE Patient Instructions: 1. We discussed starting letrozole a few days after completion of radiation. Contact office with any changes or questions: During Business hours: [facility] [phone] [place] [phone] After hours/holidays/weekends Call [facility] hopper operator [phone] and ask for oncology trial consultant If you have an acute emergency call 911 documented in this encounter Progress Notes Violet Gomez MD - 07/02/2019 11:00 AM EST HEMATOLOGY/ONCOLOGY FOLLOW-UP VISIT [address] [place] [id number] Patient ID: Ruth Pacheco : 1935 Age: 84-y.o. 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 The indication for the excisional biopsy was atypical ductal hyperplasia diagnosed by ultrasound-guided core needle biopsy of her right breast done on 02/14/2019. Staging Clinical cTis cN0 M0, stage 0 Pathologic pTis pNX M0, stage 0 TREATMENTcurative intent: 1. On 03/23/2019, reflector localized right breast excisional biopsy, which served as a right partial mastectomy 2. On 04/27/2019, reexcision right partial mastectomy ECOG PS= 0 Diagnostic/treatment history: She reports that she was admitted at [facility] in December 2018, and a CT chest performed showed an incidental nodule in her right breast. As an outpatient she had a screening mammogram on 01/12/2019, showed a 1.5 cm mass density in her mid central outer right breast. This mass density had increased in prominence since her previous mammogram done in 2014. She underwent ultrasound-guided core needle biopsy of this mass on 02/14/2019. The diagnosis included atypical ductal hyperplasia and radial scar and a papillary lesion. She was seen by Dr. Ramires surgery and underwent right breast excisional biopsy on 03/23/2019 which yielded diagnosis of DCIS, margins were positive. She then underwent a curative reexcision/partial mastectomy on 04/27/2019 and final pathology consistent with DCIS, ER positive, MD positive. She says she has a personal history of a left breast excisional biopsy done in 1989, with a benign diagnosis. HISTORY OF PRESENT ILLNESS: Ruth Pacheco is a pleasant 84-y.o. female, who presents to Medical oncology clinic for follow-up of right breast DCIS. Since last being seen by me, she reports feeling well. She met with Dr. Lua from radiation oncology, and has started radiation therapy last week. She reports tolerating it well without any side effects. She denies any weight loss, bone pain, back pain and any other systemic symptoms. She is accompanied today by her significant other. REVIEW OF SYSTEMS: Review of Systems Constitutional: Negative for chills, diaphoresis, fever, malaise/fatigue and weight loss. HENT: Negative for congestion and sore throat. Eyes: Negative for blurred vision and double vision. Respiratory: Negative for cough, hemoptysis, sputum production and shortness of breath. Cardiovascular: Negative for chest pain, orthopnea and leg swelling. Gastrointestinal: Negative for abdominal pain, blood in stool, constipation, diarrhea, heartburn, melena, nausea and vomiting. Genitourinary: Negative for dysuria, frequency, hematuria and urgency. Musculoskeletal: Negative for joint pain. Skin: Negative for itching and rash. Neurological: Negative for dizziness, tingling, sensory change, speech change, focal weakness, weakness and headaches. Endo/Heme/Allergies: Does not bruise/bleed easily. Psychiatric/Behavioral: Negative for depression and substance abuse. The patient is not nervous/anxious. Past Medical History: Diagnosis Date Benign neoplasm [...] Urge incontinence 09/27/2006 UTI (urinary tract infection) Past Surgical History: Procedure Laterality Date APPENDECTOMY 1943 BLADDER EXSTROPHY REPAIR 10/2006 midurethral sling at [facility] BLADDER OPERATION NEC BREAST OPERATION NEC CHOLECYSTECTOMY 1987 EUS 1.9 x 1.6 cm pancreatic tail cyst. Cytology negative for malignancy. Mucin positive. Amylase <30. CEA 2590. PHACOEMULSIFICATION WITH INTRA OCULAR LENS 01/24/2012 Procedure: PHACOEMULSIFICATION WITH INTRA OCULAR LENS; Surgeon: Cachorro Joshi MD; Location: [facility]; Laterality: Left; MD EXC SKIN MALIG 0.6-1CM FACE,FACIAL MD MASTECTOMY, PARTIAL 1990 left breast MD MASTECTOMY, PARTIAL Right 04/27/2019 Procedure: reexcision right partial mastectomy; Surgeon: Torsten Ramires MD; Location:[facility] MD REMOVAL GALLBLADDER MD REMOVE TONSILS/ADENOIDS,<12 Y/O 1957 @[facility]@ Allergies Allergen Reactions Adhesive [Tape: Silk Or Adhesive] Rash Demerol HOME AND FAMILY LIVING PROFESSOR Reaction WENT CRAZY-RIPPED CLOTHES OFF,ECT. Pcn [Penicillins] Respiratory Reaction Red Dye Hives Sulfa Antibiotics Hives Family History Problem Relation Age of Onset Heart Mother CAD-Pacemaker Cervical Cancer Mother ppostmenopausal Cancer Father Lung Cancer Heart Father Heart disease unspecified Social History Socioeconomic History Marital status: Spouse [...] file Gets together: Not on file Attends voodoo service: Not on file Active member of [...] Not Asked Social History Narrative Lives in [place]. No pets. PHYSICAL EXAMINATION: BP 132/60 (BP Location: Left arm, Patient Position: Sitting) | Pulse 62 | Temp 97.6 F (36.4 C) (Temporal) | Resp 14 | Ht 5' 7" (1.702 m) | Wt 156 lb 9.6 oz (71 kg) | LMP (LMP Unknown) |BMI 24.53 kg/m Wt Readings from Last 3 Encounters: 07/02/19 156 lb 9.6 oz (71 kg) 06/20/19 158 lb (71.7 kg) 06/12/19 159 lb 8 oz (72.3 kg) Physical Exam Constitutional: She is oriented to person, place, and time. She appears well- developed and well-nourished. No distress. HENT: Head: Normocephalic and atraumatic. Mouth/Throat: Oropharynx is clear and moist. Eyes: Pupils are equal, round, and reactive to light. Conjunctivae are normal. No scleral icterus. Neck: Normal range of motion. Neck supple. Cardiovascular: Normal rate, regular rhythm, normal heart sounds and intact distal pulses. Exam reveals no gallop and no friction rub. No murmur heard. Pulmonary/Chest: Effort normal and breath sounds normal. No stridor. No respiratory distress. She has no wheezes. She has no rales. She exhibits no tenderness. Right breast exhibits no inverted nipple,no mass, no nipple discharge, no skin change and no tenderness. Left breast exhibits no inverted nipple, no mass, no nipple discharge, no skin change and no tenderness. Breasts are symmetrical. Abdominal: Soft. Bowel sounds are normal. She exhibits no distension and no mass. There is no tenderness. There is no rebound and no guarding. Musculoskeletal: Normal range of motion. General: No tenderness, deformity or edema. Lymphadenopathy: She has no cervical adenopathy. Neurological: She is alert and oriented to person, place, and time. Skin: Skin is warm and dry. No rash noted. She is not diaphoretic. Psychiatric: She has a normal mood and affect. Her behavior is normal. Judgment and thought content normal. DATA REVIEW: I have personally reviewed labs and radiology in [facility]. I confirmed the findings as listed below. PATHOLOGY REVIEW: 04/27/2019: Addendum Part 2: The focus of sclerosing adenosis was evaluated by immunohistochemistry. Myoepithelial cells are highlighted on calponin immunostain, supporting the diagnosis. p63 is noncontributory due to severe thermal artifact FINAL DIAGNOSIS Part 1: Right breast, re-excision partial mastectomy (18 g): - Focal residual ductal carcinoma in situ (DCIS), intermediate nuclear grade (nuclear grade 2), with comedonecrosis. - All margins of excision are negative for DCIS. - DCIS is 2 mm from the closest margin, which is the posterior margin. - Note: Part 3 (new posterior margin) is negative for malignancy, therefore, DCIS is greater than 2 mm from the final posterior margin. - DCIS is 8 mm from the next closest margin, which is the superior margin and 18 mm from the inferior margin. - Breast tissue also shows changes consistent with prior procedure site, minute intraductal papillomas, sclerosing adenosis, florid duct epithelial hyperplasia, and calcifications associated with benign acini and stroma. - Changes consistent with prior procedure site extend to the anterior margin of resection. Part 2: Right breast, new superior margin, excision: - Breast tissue with fibrocystic changes, sclerosing adenosis, ectatic ducts, and calcifications associated with acini. - Negative for malignancy Part 3: Right breast, new posterior margin, excision: - Breast tissue, mostly fatty; negative for malignancy. Part 4: Right breast, new lateral margin, excision: - Breast tissue; negative for malignancy. Synoptic Checklist DCIS OF THE BREAST Breast DCIS - All Specimens CLINICAL Clinical History Close margins on right breast excisional biopsy ([id number]) SPECIMEN Procedure Re-excision partial mastectomy Specimen Laterality Right TUMOR Tumor Site Not specified Histologic Type Ductal carcinoma in situ Size (Extent) of DCIS Estimated size of DCIS greatest dimension in Millimeters (mm) is at least: 2 mm Millimeters (mm) Architectural Patterns Comedo Cribriform Nuclear Grade Grade II (intermediate) Accessory Findings Necrosis Present, central (expansive "comedo" necrosis) Microcalcifications Present in nonneoplastic tissue MARGINS Margins Uninvolved by DCIS Distance of DCIS from Posterior Margin in Millimeters (mm) 2 Millimeters (mm) Distance of DCIS from Superior Margin in Millimeters (mm) 8 Millimeters (mm) Distance of DCIS from Inferior Margin in Millimeters (mm) 18 Millimeters (mm) Distance from Closest Margin in Millimeters (mm) 2 Millimeters (mm) Closest Margin Posterior LYMPH NODES Regional Lymph Nodes No lymph nodes submitted or found PATHOLOGIC STAGE CLASSIFICATION (pTNM, AJCC 8th Edition) TNM Descriptors Not applicable Primary Tumor (pT) pTis (DCIS) Regional Lymph Nodes (pN) Category (pN) pNX ADDITIONAL FINDINGS Additional Pathologic Findings changes consistent with prior procedure, florid duct epithelial hyperplasia, minute intraductal papillomas, calcifications associated with benign acini and stroma, sclerosing adenosis Addendum ER, MD tests by immunohistochemistry are performed and interpreted at [facility] withthe following results: ER: 93.65 % Positive MD: 76.28 % Positive RADIOLOGY REVIEW: 01/12/2019 screening bilateral mammogram scattered fibroglandular density bilaterally. Enlarging 1.5 cm mass in her mid central outer right breast. Asymmetric densities in her mid central right breast. Otherwise, bilaterally, there are no other suspicious mass densities, no suspicious architectural distortion, and no suspicious calcifications. 01/29/2019 diagnostic right mammogram mass density at about the 9 o'clock position in her rightbreast with some calcifications posterior to this mass density. 01/29/2019 right breast ultrasound corresponding to the mass density imaged on her mammogram, there is a 1.6 cm hypoechoic slightly lobulated mass. 02/14/2019 ultrasound-guided core needle biopsy of her right breastpost biopsy mammogram demonstrates the biopsy site marker in good position. Pathology fibrocystic changes with focal atypical ductal hyperplasia, cystic and papillary apocrine metaplasia, radial scar 06/05/2019 DEXA scan: LABORATORY REVIEW: Last CBC w Diff Lab Results Component Value Date WBC 6.62 06/20/2019 RBC 4.56 06/20/2019 HGB 13.9 06/20/2019 HCT 43.8 06/20/2019 MCV 96.1 (H) 06/20/2019 MCH 30.5 06/20/2019 MCHC 31.7 (L) 06/20/2019 RDW 12.5 06/20/2019 MPV 10.8 06/20/2019 Lab Results Component Value Date NEUTROPCT 59.5 06/20/2019 Last Complete Metabolic Panel Lab Results Component Value Date BUN 17 06/20/2019 CREATININE 0.9 06/20/2019 EGFR 60 06/20/2019 NA 138 06/20/2019 K 4.3 06/20/2019 CL 101 06/20/2019 CO2 26 06/20/2019 CALCIUM 10.2 (H) 06/20/2019 AST 42 06/20/2019 ALT 32 06/20/2019 ASSESSMENT AND PLAN: Ruth Pacheco is a pleasant 84-y.o. female, who presents to Medical oncology clinic for discussionof adjuvant treatment options for DCIS in the right breast. 1. Ductal carcinoma in situ of right breast, ER, MD positive: -We discussed about the natural history of DCIS and the fact that survival rates are very high and on the order of 98 to 99%. The risk of distant metastases from DCIS is exceedingly low. Breast conserving surgery with radiation optimizes local regional control and has been shown to be equivalent to a mastectomy in terms of survival. We discussed the fact that the majority of DCIS lesions express estrogen and progesterone receptors as is the case for this patient. -Radiotherapy reduced the incidence of all new breast events, ipsilateral invasive disease, and ipsilateral DCIS. Tamoxifen reduced the incidence of all new breast events, recurrent ipsilateral DCIS, and contralateral tumors. Tamoxifen has not been proven to have an overall survival benefit as DCIS adjuvant therapy. A phase III study, NSABP B-35 (Lancet. 2016 Oct 04; 387(42017) : [id number]) presented at [facility] 2015, showed Arimidex was superior than tamoxifen in postmenopausal women younger than 60 years old. I generally recommend using adjuvant tamoxifen for 5 years. For postmenopausal women younger than 60 years old, anastrozole is a good option. We choose the medication depending on the patient's health status and potential risk factors for side effects. -After she had a discussion with her PCP and other family members she opted to proceed with hormonaltherapy and radiation therapy. I discussed the side effects of letrozole at length, and prescribed letrozole 2.5 mg p.o. daily, to be started after completion of radiation. We will see her back in 3 to 4 months for toxicity evaluation 2. Osteoporosis: -Her most recent DEXA scan from 1 m ago, did show slightly worsening of T score , now in the range of osteoporosis especially in the right hip. Her FRAX score showed a 6% risk of major osteoporotic fracture in the next 10 years. I discussed that her bone density may worsen while on aromatase inhibitor therapy and that we will monitor her DEXA scan every 2 years. -I also prescribed her calcium (1000 mg) and vitamin D (1261-1733 units) supplementation and recommended weight-bearing exercises on a daily basis. --Continue Fosamax for now. Pain Ruth Pacheco is noted in assessment to have a 0/10. The patient's individualized treatment will therefore consist of: Reassessment at regular intervals Follow up: -RTC 3-4 months The patient has our contact information and is encouraged to contact us with any questions or concerns. We spent 40 minutes with the patient, more than 50% of that time spent in counseling and coordination of care. Author: Violet Gomez MD 07/02/2019 15:31 Hematology/Oncology [facility]. documented in this encounter Plan of Treatment Date Type Specialty Care Team Description 07/03/2019 Office Visit Radiation Oncology Italo Lua MD Radiation Oncology [address] [address] [phone] 07/19/2019 Orders Only Cardiology 07/25/2019 Office Visit Cardiology Indra Bryan MD [address] [place] [address] [phone] 10/31/2019 Office Visit Hematology and Marti Tafoya Oncology MAKEUP ARTIST [address] [address] [phone] 11/05/2019 Office Visit General Surgery Torsten Ramires MD [address] [address] [phone] Health Maintenance Due Date Last Done Comments ZOSTER IMMUNIZATION SERIES 1987 (1 of 2) MEDICARE ANNUAL WELLNESS 05/24/2017 05/24/2016 (Postponed), VISIT 01/02/2015 (Previously completed), 05/12/2011 Colonoscopy 02/16/2020 02/15/2017, 05/05/2010, 05/05/2010, Additional history exists [...] Problems Progress Blood Pressure Blood Pressure HTN 132/60 No Skezas, < 140/90 (hypertension), (07/02/2019 MD Pedro CARE PLAN 10:55 AM EST) INITIATED Note: Hypertension Care Plan [...] Educational Resources. record my blood pressure results. Loc is safe and secure way for you [...] Educational Resources: National Heart, Lung, & Blood [place] http://nhlbi.nih.gov/hbp/index.html The DASH Diet Eating Plan http://www.nhlbi.nih.gov/health/health-topics/ topics/dash/ Academy of Nutrition & DIetetics http://eatright.org National Smoking Cessation Site http://smokefree.gov Blood Pressure Blood Pressure HTN (hypertension), 132/60 No Skezas, < 140/90 CARE PLAN INITIATED (07/02/2019 10:55 MD Pedro AM [facility]) Note: Hypertension Care Plan Based on the [...] Educational Resources. record my blood pressure results. [facility] is safe and secure way for you [...] Educational Resources: National Heart, Lung, & Blood [place] http://nhlbi.nih.gov/hbp/index.html The DASH Diet Eating Plan http://www.nhlbi.nih.gov/health/health-topics/ topics/dash/ Academy of Nutrition & DIetetics http://eatright.org National Smoking Cessation Site http://smokefree.gov Blood Pressure < Blood Pressure 132/60 (07/02/2019 10:55 No Pedro Aquino MD 150/90 AM EST) [...] all prescribed medications as directed Self-management Pedro Velaqzuez MD Note: This is an individualized self-management [...] this encounter Implants Implanted Type Area Manager Of Global Device Shelf Model / Serial Identifier Expiration Date / Lot Iol, [id number] 23.0 Diopter - [id number] Left: Eye STORZ [id number] / Implanted: Qty: 1 on 01/24/2012 at [facility] / [id number] documented as of this encounter Results Not on filedocumented in this encounter Visit Diagnoses Diagnosis Ductal carcinoma in situ (DCIS) of right breast - Primary Osteoporosis, unspecified osteoporosis type, unspecified pathological fracture presence documented in this encounter Insurance Payer Benefit Plan / Subscriber ID Effective Dates Phone Address Type Group MEDICARE MEDICARE PART A xxxxxxxxxxx 2002-Present Medicare & B [facility] [employer] xxxxxxxxxxx 2016-Present [facility] OPTIONS (Home) [place], [place] [phone] (Work) documented as of this encounter
--- OUTSIDE RECORDS SUMMARY | 2019-08-10 16:28 | XMS REPORT | Summary of Care ---
:1935 Author Organization [facility] Address [address] [place] [address] Care Team Providers Name Role Phone Louantwan Pedro Primary Care Provider Kayla Zimmerman Field Collector Unavailable Reason for Visit Reason Comments Sick headache, runny nose, cough, sinus pressure, R ear pain. Just finished 3 weeks of radiation and is concerned Encounter Details Date Type Department Care Team Description 07/20/2019 Office Visit [facility] Won Gleason, Cough (Primary Dx); Medicine PA Acute viral sinusitis [address] [place] [address] [place] [address] [phone] Allergies Active Allergy Reactions Severity Noted Date Comments Tape: Silk Or Adhesive Rash 04/16/2019 Demerol LIGHT BULB ASSEMBLER Reaction 10/04/2006 WENT CRAZY-RIPPED CLOTHES OFF,ECT. Penicillins Respiratory Reaction 10/04/2006 Red Dye Hives 03/07/2013 Sulfa Antibiotics Hives 10/04/2006 documented as of this encounter (statuses as of 07/20/2019) Medications Medication Sig Dispensed Refills Start Date End Date Status daily vitamin PO Take 1 Tab by 0 Active TABS mouth DAILY. metoprolol Take 1 Tab by 90 Tab 3 07/20/2018 Active succinate (TOPROL mouth DAILY. XL) 50 MG Oral TABLET SR 24 HR alendronate TAKE 1 TABLET 12 Tab 3 11/30/2018 Active (FOSAMAX) 70 MG BY MOUTH ONCE Oral Tab WEEKLY MELATONIN PO Take by mouth 0 Active EVERY BEDTIME. Omeprazole delayed Take 20 mg by 90 Cap 3 01/10/2019 Active rel cap 20 MG Oral mouth DAILY CAPSULE DELAYED NEEDED (for RELEASE reflux). lisinopril Take 1 Tab by 90 Tab 3 01/23/2019 Active (PRINIVIL, ZESTRIL) mouth DAILY. 20 MG Oral Tab tramadol (ULTRAM) TAKE ONE TABLET 50 Tab 1 02/14/2019 Active 50 MG Oral Tab BY MOUTH EVERY 6 HOURS NEEDED FOR BACK PAIN - MAXIMUM DAILY DOSE OF 4 PER DAY levothyroxine TAKE 1 TABLET 90 Tab 3 03/16/2019 Active (SYNTHROID) 88 MCG BY MOUTH EVERY Oral Tab DAY BEFORE BREAKFAST atorvastatin Take 1 Tab by 90 Tab 3 06/07/2019 Active (LIPITOR) 40 MG mouth DAILY. Oral Tab Calcium Take 1 Tab by 60 Tab 3 06/12/2019 Active Carb-Cholecalcifero mouth DAILY. l (CALCIUM 1000 + D) 1000-800 MG-UNIT Oral Tab letrozole (FEMARA) Take 1 Tab by 30 Tab 3 07/02/2019 Active 2.5 MG Oral Tab mouth DAILY. CALCIUM-VITAMIN Take by mouth 0 Discontinued D-VITAMIN K *BID. 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 Pancreatic head/body calcifications consistent w/ chronic pancreatitis. Pancreatic tail hypodensity measuring 1.6 cm. 10/12/2012 CT scan (abd/pelvis) [facility] - Pancreatic tail cyst 1.4 cm [...] positive 10/29/2013 [facility]CP at [facility]--Ordered as MR Abdomen without contrast 1.2 X 0.7 X 1.0 cm simple cyst without concerning imaging characteristics 05/2014 2 pancreatic tail cysts--7X6 mm and 5X4 mm February 2015 [facility]CP at [facility] in [place], [place] 1.4X0.4X1.1 cm cyst in the pancreatic [...] as of this encounter (statuses as of 07/20/2019) Resolved Problems Problem Noted Date Resolved Date Hypothyroidism 09/13/2007 06/19/2015 Personal history of allergy to penicillin 03/30/2006 05/29/2008 Personal history of allergy to other antibiotic agent 03/30/2006 05/29/2008 Personal history of allergy to narcotic agent 03/30/2006 05/29/2008 documented as of this encounter (statuses as of 07/20/2019) Immunizations Name Administration Dates Next Due Influenza [...] Sign Reading Time Taken Comments Blood Pressure 124/62 07/20/2019 10:23 AM EST Pulse 70 07/20/2019 10:23 AM EST Temperature 36.1 07/20/2019 10:23 AM EST C (97 F) Respiratory Rate - - Oxygen Saturation 96% 07/20/2019 10:23 AM EST Inhaled Oxygen Concentration - - Weight 67.6 kg (149 lb) 07/20/2019 10:23 AM EST Height 170.2 cm (5' 7") 07/20/2019 10:23 AM EST Body Mass Index 23.34 07/20/2019 10:23 AM EST documented in this encounter Patient Instructions Patient InstructionsWon Gleason PA - 07/20/2019 10:20 AM ESTSudafed to open up your airways Mucinex (Dextromethorphan with Guaifenesin) to loosen up secretions and reduce cough. Patient Education Sinusitis Discharge Instructions, Adult About this topic The sinuses are air-filled spaces inside the head. They are found behind your forehead, nose, cheeks, and eyes. The spaces are lined with small hairs that clean the sinuses. Sinusitis means that your sinuses are swollen, inflamed, or infected. This happens when the small hairs that clean the sinuses do not work, or when the opening to the sinuses is blocked. Mucus is trapped inside the sinuses and causes pain. The block may be caused by: Colds ? This is the most common reason. Allergies Curving or bending of the wall that separates your nose. This is a deviated septum. Extra bony growths inside the nose. These are called nasal bone spurs. Chemical irritation from cigarette smoke or other irritating odors Signs can last for up to 4 weeks or may be long-lasting. They may also appear again in a few months after you feel better. Doctors may treat sinusitis by giving drugs. Surgery may be needed if sinusitis happens again and again. What care is needed at home? Ask your doctor what you need to do when you go home. Make sure you ask questions if you do notunderstand what you need to do. Your doctor may order a saline nose rinse to help clear your sinuses. Drink 6 to 8 glasses of water each day to help thin mucus. Use two or three pillows under your head and shoulders when you sleep. This will help your sinuses drain. Drape a towel over your head as you breathe in the steam from a bowl of warm water. This will help moisturize your sinuses. This may also drain clogged sinuses. Use a warm compress to your face to ease facial pain. What follow-up care is needed? Your doctor may ask you to make visits to the office to check on your progress. Be sure to keepyour visits. Your doctor will tell you if other tests are needed. Your doctor may send you for allergy tests or to an allergy expert. What lifestyle changes are needed? Avoid drinks that contain caffeine or alcohol. Try to stop smoking. Avoid being around others who smoke. Smoke can damage the small hairs inside your sinuses. What drugs may be needed? The doctor may order drugs to: Help with pain and swelling Fight an infection Control coughing Dry up the sinuses Help a runny or stuffy nose Will physical activity be limited? You do not have to limit your activity. You may want to rest more if you have a fever or headache. What problems could happen? Infections that happen again and again Asthma attack Coughing Loss of voice What can be done to prevent this health problem? Keep your nose as moist as possible. Use saline sprays, washes, and a humidifier often. Avoid being around cigarette and cigar smoke or strong odors from chemicals. Avoid long periods of swimming in pools treated with chlorine. This can bother the lining of the nose and sinuses. Avoid water diving. This forces water into the sinuses from the nasal passages. Manage your allergies with your doctor's help. Use an air conditioner if allergies are a problem. Before air travel, use a drug to dry up mucus. As the plane takes off or lands, the pressure can cause sinus pain. When do I need to call the doctor? Signs of infection. These include a fever of 100.4F (38C) or higher , chills. Sudden breathing problems You are not feeling better in 2 or 3 days or you are feeling worse Teach Back: Helping You Understand The Teach Back Method helps you understand the information we are giving you. The idea is simple. After talking with the staff, tell them in your own words what you were just told. This helps to make sure the staff has covered each thing clearly. It also helps to explain things that may have been a bit confusing. Before going home, make sure you are able to do these: I can tell you about my condition. I can tell you what may help ease my breathing. I can tell you what I will do if I have a fever, chills, or trouble breathing. Where can I learn more? [employer] https://familydoctor.org/condition/sinusitis/ Better Health Channel https://www.betterhealth.ismael.gov.au/health/ConditionsAndTreatments/sinusitis Kids Health https://kidshealth.org/en/parents/sinusitis.html?ref=search Last Reviewed Date 2018-05-26 Copyright Copyright 2019 [employer] and its affiliates and/or licensors. All rights reserved. documented in this encounter Progress Notes Won Gleason PA - 07/20/2019 10:20 AM EST PATIENT: Ruth Pacheco : 1935 DATE OF SERVICE: 07/20/2019 Subjective SUBJECTIVE: Ruth Pacheco is a 84-y.o. female who presents for evaluation of bilateral ear pressure/pain, congestion and headache described as frontal. Symptoms include cough described as productive of clear sputum, post nasal drip and sinus pressure with night sweats. Onset of symptoms was 5 days ago, gradually worsening since that time. She is drinking plenty of fluids. Past history is significant for occasional episodes of bronchitis. Patient is former smoker, quit 20 years ago. Past Medical History: Diagnosis Date Benign neoplasm [...] Oral Tab Take 1 Tab by mouthDAILY. daily vitamin PO TABS Take 1 Tab by mouth DAILY. letrozole (FEMARA) 2.5 MG Oral Tab Take 1 Tab by mouth DAILY. levothyroxine [...] Adhesive [Tape: Silk Or Adhesive] Rash Demerol LIGHT BULB ASSEMBLER Reaction WENT CRAZY-RIPPED CLOTHES OFF,ECT. Pcn [Penicillins] Respiratory Reaction Red Dye Hives Sulfa Antibiotics Hives Social History Socioeconomic History Marital status: Spouse name: Not on file Number of children: Not on file Years of education: Not on file Highest education level: Not on file Occupational History Not on file Social Needs Financial resource strain: Not on file Food insecurity Worry: Not on file Inability: Not on file Transportation needs Medical: Not on file Non-medical: Not on file Tobacco Use Smoking status: Former Smoker Smokeless tobacco: Never Used Tobacco comment: quit 1999 Substance and Sexual Activity Alcohol use: No Alcohol/week: 0.0 standard drinks Drug use: No Sexual activity: Yes Partners: Male Lifestyle Physical activity Days per week: Not on file Minutes per session: Not on file Stress: Not on file Relationships Social connections Talks on phone: Not on file Gets together: Not on file Attends gnosticism service: Not on file Active member of club or organization: Not on file Attends meetings of clubs or organizations: Not on file Relationship status: Not on file Intimate partner violence Fear of current or ex partner: Not [...] Not Asked Social History Narrative Lives in [place]. No pets. REVIEW OF SYSTEMS: Review of Systems Constitutional: Positive for diaphoresis. Negative for chills, fever and weight loss. HENT: Negative for ear discharge, ear pain and hearing loss. Eyes: Negative for blurred vision, double vision and discharge. Respiratory: Positive for cough. Negative for sputum production, shortness of breath and wheezing. Cardiovascular: Negative for chest pain, palpitations and leg swelling. Gastrointestinal: Negative for abdominal pain, diarrhea, heartburn, nausea and vomiting. Genitourinary: Negative for dysuria and flank pain. Musculoskeletal: Negative for back pain, myalgias and neck pain. Neurological: Negative for dizziness, tingling, tremors and headaches. Objective OBJECTIVE: BP 124/62 (BP Location: Left arm, Patient Position: Sitting) | Pulse 70 | Temp 97 F (36.1 C) (Tympanic) | Ht 5' 7" (1.702 m) | Wt 149 lb (67.6 kg) | LMP (LMP Unknown) | SpO2 96% | BMI 23.34 kg/m GENERAL: alert, cooperative, no distress. HEAD: normocephalic, atraumatic without lesions or tenderness. EYES: conjunctivae/corneas clear. Pupils equal, round, reactive to light. Equal ocular movements intact. Fundi benign.. EARS: normal tympanic membranes and external ear canals, bilaterally. SINUS TENDER: positive. MOUTH: lips, mucosa, and tongue normal: teeth and gums normal. NECK: mild anterior cervical adenopathy. LUNGS: clear to auscultation bilaterally. ASSESSMENT: Acute viral sinusitis ICD-9-CM ICD-10-CM 1. Cough 786.2 R05 2. Acute viral sinusitis 461.9 J01.90 079.99 B97.89 Plan PLAN: 1. Sudafed to clear up the sinuses, take as box prescribes and no more. 2. May also use Mucinex (Dextromethorphan with Guaifesesin) to loosen up secretions and reduce cough. 3. return if symptoms worsen or persist. Author: PED[place] Wright 07/20/2019 12:06 documented in this encounter Plan of Treatment Date Type Specialty Care Team Description 07/25/2019 Office Visit Cardiology Indra Bryan MD [address] [place] [address] [phone] 08/20/2019 Office Visit Radiation Oncology Italo Lua MD Radiation Oncology [address] [place] [address] 10/31/2019 Office Visit Hematology and Marti Tafoya, Oncology PRODUCT MANAGEMENT INTERN [address] [address] 11/05/2019 Office Visit General Surgery Torsten Ramires MD [address] [place] [address] [phone] Health Maintenance Due Date Last Done Comments DTaP/Tdap/Td Vaccines (1 - 1948 Tdap) ZOSTER IMMUNIZATION SERIES 1987 (1 of 2) MEDICARE ANNUAL WELLNESS 05/24/2017 05/24/2016 (Postponed), VISIT 01/02/2015 (Previously completed), 05/12/2011 Colonoscopy 02/16/2020 02/15/2017, 05/05/2010, 05/05/2010, Additional history exists DEPRESSION SCREENING 02/16/2020 02/15/2019, 02/15/2019 FALL RISK ASSESSMENT 06/12/2020 06/12/2019, 06/12/2019 PNEUMOCOCCAL 65+YRS Completed 10/14/2014, 2010 INFLUENZA VACCINE Completed 06/07/2019, 05/16/2018, 06/27/2017, Additional history exists HEPATITIS A IMMUNIZATION Aged Out No longer eligible SERIES based on patient's age to complete this topic HPV IMMUNIZATION SERIES Aged Out No longer eligible based on patient's age to complete this topic MENINGOCOCCAL VACCINE IMM Aged Out No longer eligible based on patient's age to complete this topic documented as of this encounter Goals Goal Patient Goal Associated Recent Patient-Stated? Author Type Problems Progress Blood Pressure Blood Pressure HTN 124/62 No Skezas, < 140/90 (hypertension), (07/20/2019 MD Pedro CARE PLAN 10:23 AM EST) INITIATED Note: Hypertension Care Plan [...] Educational Resources. record my blood pressure results. Dial2Doe is safe and secure way for you [...] Educational Resources: National Heart, Lung, & Blood [place] http://nhlbi.nih.gov/hbp/index.html The DASH Diet Eating Plan http://www.nhlbi.nih.gov/health/health-topics/ topics/dash/ Academy of Nutrition & DIetetics http://eatright.org National Smoking Cessation Site http://smokefree.gov Blood Pressure Blood Pressure HTN (hypertension), 124/62 No Skezas, < 140/90 CARE PLAN INITIATED (07/20/2019 10:23 MD Pedro AM JOLENE) Note: Hypertension Care Plan Based on the [...] Educational Resources. record my blood pressure results. [facility] is safe and secure way for you [...] Educational Resources: National Heart, Lung, & Blood Smoot http://nhlbi.nih.gov/hbp/index.html The DASH Diet Eating Plan http://www.nhlbi.nih.gov/health/health-topics/ topics/dash/ Academy of Nutrition & DIetetics http://eatright.org National Smoking Cessation Site http://smokefree.gov Blood Pressure < Blood Pressure 124/62 (07/20/2019 10:23 No Pedro Aquino MD 150/90 AM EST) [...] of this encounter Implants Implanted Type Area Leasing Coordinator Device Shelf Model / Serial Identifier Expiration Date / Lot Iol, [id number] 23.0 Diopter - [id number] Left: Eye STORZ [id number] / Implanted: Qty: 1 on 01/24/2012 at [facility] / [id number] documented as of this encounter Results Not on filedocumented in this encounter Visit Diagnoses Diagnosis Cough Acute viral sinusitis documented in this encounter Insurance Payer Benefit Plan / Subscriber ID Effective Dates Phone Address Type Group MEDICARE MEDICARE PART A xxxxxxxxxxx 2002-Present Medicare & B [facility] COMMERCIAL [facility] xxxxxxxxxxx 2016-Present [facility] OPTIONS Guarantor Name Account Type Relation to Date of Phone Billing Patient Address Ruth Pacheco Personal/Family [address] (Home) [place], [place] [phone] (Work) documented as of this encounter
--- OUTSIDE RECORDS SUMMARY | 2019-08-10 16:28 | XMS REPORT | Summary of Care ---
:1935 Author Organization [facility] Address [address] [address] Care Team Providers Name Role Phone Pedro Aquino Primary Care Provider Kayla Zimmerman Pocket Flap Creasing Machine Operator Unavailable Encounter Details Date Type Department Care Team Description 06/13/2019 Hospital Encounter [facility] Radiation Therapy Repeat Series [address] [place] [address] Allergies Active Allergy Reactions Severity Noted Date Comments Tape: Silk Or Adhesive Rash 04/16/2019 Demerol HEARING SCREENER Reaction 10/04/2006 WENT CRAZY-RIPPED CLOTHES OFF,ECT. 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 Pancreatic head/body calcifications consistent w/ chronic pancreatitis. Pancreatic tail hypodensity measuring 1.6 cm. 10/12/2012 CT scan (abd/pelvis) [facility] - Pancreatic tail cyst 1.4 cm [...] positive 10/29/2013 [facility]CP at [facility]--Ordered as MR Abdomen without contrast 1.2 X 0.7 X 1.0 cm simple cyst without concerning imaging characteristics 05/2014 2 pancreatic tail cysts--7X6 mm and 5X4 mm February 2015 MRCP at [facility] in [place], [place] 1.4X0.4X1.1 cm cyst in the [...] as of this encounter (statuses as of 06/15/2019) Resolved Problems Problem Noted Date Resolved Date Hypothyroidism 09/13/2007 06/19/2015 Personal history of allergy to penicillin 03/30/2006 05/29/2008 Personal history of allergy to other antibiotic agent 03/30/2006 05/29/2008 Personal history of allergy to narcotic agent 03/30/2006 05/29/2008 documented as of this encounter (statuses as of 06/15/2019) Immunizations Name Administration Dates Next Due Influenza [...] Visit Internal Medicine Pedro Aquino MD [address] [place], [place] [id number] 07/02/2019 Office Visit Hematology and Oncology Violet Gomez MD [address] [address] 07/19/2019 Orders Only Cardiology 07/25/2019 Office Visit Cardiology Indra Bryan MD [address] [place], [place] [id number] 11/05/2019 Office Visit General Surgery Torsten Ramires MD [address] [address] Health Maintenance Due Date Last Done Comments [...] Blood Pressure Blood Pressure HTN 117/58 No Skezas, < 140/90 (hypertension), (06/12/2019 MD Pedro CARE [...] Educational Resources: National Heart, Lung, & Blood [place] http://nhlbi.nih.gov/hbp/index.html The DASH Diet Eating Plan http://www.nhlbi.nih.gov/health/health-topics/ [...] Educational Resources: National Heart, Lung, & Blood [place] http://nhlbi.nih.gov/hbp/index.html The DASH Diet Eating Plan http://www.nhlbi.nih.gov/health/health-topics/ [...] of this encounter Implants Implanted Type Area Transportation Economics Teacher Device Shelf Model / Serial Identifier Expiration Date / Lot Iol, [id number] 23.0 Diopter - [id number] Left: Eye STORZ [id number] / Implanted: Qty: 1 on 01/24/2012 at [facility] / [id number] documented as of this encounter Results Not on filedocumented in this encounter Insurance Payer Benefit Plan / Subscriber ID Effective Dates Phone Address Type Group MEDICARE MEDICARE PART A xxxxxxxxxxx 2002-Present Medicare & B [facility] COMMERCIAL [facility] xxxxxxxxxxx 2016-Present [facility] OPTIONS Guarantor Name Account Type Relation to Date of Phone Billing Patient Address Ruht Pacheco Personal/Family [address] (Home) [place], [place] [phone] (Work) documented as of this encounter
--- OUTSIDE RECORDS SUMMARY | 2019-08-10 16:28 | XMS REPORT | Summary of Care ---
:1935 Author Organization [facility] Address [address] [address] Care Team Providers Name Role Phone Miles Pedro Primary Care Provider Kayla Zimmerman Intravenous Therapy Nurse Unavailable Reason for Visit Reason Comments Follow Up Pt. in for a 1 Year Follow Up on LBBB and HTN. Reports finished 6 weeks of daily radiation treatment for (R) Breast CA. Echo done on 07/19/19. Encounter Details Date Type Department Care Team Description 07/25/2019 Office Visit Darleen Bryan, Essential hypertension ( Primary Dx); Cardiology MD Indra LBBB (left bundle branch block); [address] Aortic valve insufficiency, etiology of [place] [address] [place] [address] [phone] Allergies Active Allergy Reactions Severity Noted Date Comments Tape: Silk Or Adhesive Rash 04/16/2019 Demerol JEWELRY MANAGER Reaction 10/04/2006 WENT CRAZY-RIPPED CLOTHES OFF,ECT. Penicillins Respiratory Reaction 10/04/2006 Red Dye Hives 03/07/2013 Sulfa Antibiotics Hives 10/04/2006 documented as of this encounter (statuses as of 07/25/2019) Medications Medication Sig Dispensed Refills Start Date End Date Status daily vitamin PO TABS Take 1 Tab by 0 Active mouth DAILY. 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 Pancreatic head/body calcifications consistent w/ chronic pancreatitis. Pancreatic tail hypodensity measuring 1.6 cm. 10/12/2012 CT scan (abd/pelvis) [facility] - Pancreatic tail cyst 1.4 cm [...] positive 10/29/2013 MRCP at [facility]--Ordered as MR Abdomen without contrast 1.2 X 0.7 X 1.0 cm simple cyst without concerning imaging characteristics 05/2014 2 pancreatic tail cysts--7X6 mm and 5X4 mm February 2015 [facility]CP at [facility] in [place], [place] 1.4X0.4X1.1 cm cyst in the pancreatic [...] as of this encounter (statuses as of 07/25/2019) Resolved Problems Problem Noted Date Resolved Date Hypothyroidism 09/13/2007 06/19/2015 Personal history of allergy to penicillin 03/30/2006 05/29/2008 Personal history of allergy to other antibiotic agent 03/30/2006 05/29/2008 Personal history of allergy to narcotic agent 03/30/2006 05/29/2008 documented as of this encounter (statuses as of 07/25/2019) Immunizations Name Administration Dates Next Due Influenza [...] Sign Reading Time Taken Comments Blood Pressure 120/74 07/25/2019 10:33 AM EST Pulse 64 07/25/2019 10:33 AM EST Temperature - - Respiratory Rate - - Oxygen Saturation - - Inhaled Oxygen Concentration - - Weight 70.3 kg (155 lb) 07/25/2019 10:33 AM EST Height 170.2 cm (5' 7") 07/25/2019 10:33 AM EST Body Mass Index 24.28 07/25/2019 10:33 AM EST documented in this encounter Patient Instructions Patient InstructionsMcIndra Barriga MD - 07/25/2019 10:00 AM EST No medication changes today. Continue to work on a low sodium diet and regular exercise. Follow up with me in 1 year or sooner if needed. documented in this encounter Progress Notes Indra Bryan MD - 07/25/2019 10:00 AM EST [facility] Note Patient: Ruth Pacheco Date of : 1935 Date of Service: 07/25/2019 REFERRING PRACTITIONER: Indra Bryan PRIMARY CARE PROVIDER: Pedro Aquino Chief Complaint: Chief Complaint Patient presents with Follow Up Pt. in for a 1 Year Follow Up on LBBB and HTN. Reports finished 6 weeks of daily radiation treatment for (R) Breast CA. Echo done on 07/19/19. History of Present Illness: We had the pleasure of seeing Ruth Pacheco today at the [facility]iology Office. She is a 84-y.o. female with HTN , moderate aortic regurgitation, L subclavian stenosis, chronic LBBB, and intraductal papillary mucinous neoplasm of the pancreas. She was also diagnosed with R breast CA in February 2019 and is s/p partial mastectomy and XRT as well as Femara. Ms. Pacheco presents to cardiology clinic today for routine yearly f/u. Since her last visit with me, she was unfortunately diagnosed with breast CA and is s/ p R partial mastectomy. She is receiving XRT and is going to start Femara, but she hasn't gotten chemotherapy. She says that she feels fatigued since her CA diagnosis but denies any CP/pressure or limiting dyspnea. Gets occasional lightheadedness but denies syncope. Continues to awaken in the middle of the night on occasion with her heart pounding. This only occurs a couple times per month and the palpitations settle down within a few minutes of awakening. This symptom hasn't changed over the past year. No orthopnea or significant LE edema. Patient Active Problem List Diagnosis Urge incontinence Idiopathic Tachycardia Hyperlipidemia Osteoporosis Benign neoplasm of colon Candidiasis of skin and nails Graves disease SQUAMOUS CELL SKIN CANCER IPMN (intraductal papillary mucinous neoplasm) - pancreatic tail cyst HTN (hypertension), CARE PLAN INITIATED Aortic regurgitation Essential hypertension Hypothyroidism due to acquired atrophy of thyroid LBBB (left bundle branch block) Subclavian artery stenosis, left (HCC) COPD (chronic obstructive pulmonary disease) (HCC) Abnormal mammogram Ductal carcinoma in situ (DCIS) of right breast Past Medical History: Diagnosis Date Benign neoplasm [...] BLADDER EXSTROPHY REPAIR 10/2006 [facility] sling [facility] BLADDER OPERATION NEC BREAST OPERATION NEC CHOLECYSTECTOMY 1987 EUS 1.9 x 1.6 cm pancreatic tail cyst. Cytology negative for malignancy. Mucin positive. Amylase <30. CEA 2590. PHACOEMULSIFICATION WITH INTRA OCULAR LENS 01/24/2012 Procedure: PHACOEMULSIFICATION WITH INTRA OCULAR LENS; Surgeon: Cachorro Joshi MD; Location: [facility] ANCILLARY OR; Laterality: Left; MN EXC SKIN MALIG 0.6-1CM FACE,FACIAL MN MASTECTOMY, PARTIAL 1989 left breast MN MASTECTOMY, PARTIAL Right 04/27/2019 Procedure: reexcision right partial mastectomy; Surgeon: Torsten Ramires MD; Location:[facility] MAIN OR MN REMOVAL GALLBLADDER MN REMOVE TONSILS/ADENOIDS,<12 Y/O 1957 Allergies Allergen Reactions Adhesive [Tape: Silk Or Adhesive] Rash Demerol JEWELRY MANAGER Reaction WENT CRAZY-RIPPED CLOTHES OFF,ECT. Pcn [Penicillins] Respiratory Reaction Red Dye Hives Sulfa Antibiotics Hives Current Outpatient Medications Medication alendronate (FOSAMAX) 70 MG Oral Tab atorvastatin (LIPITOR) 40 MG Oral Tab Calcium Carb-Cholecalciferol (CALCIUM 1000 + D) 1000-800 MG-UNIT Oral Tab daily vitamin PO TABS letrozole (FEMARA) 2.5 MG Oral Tab levothyroxine (SYNTHROID) 88 MCG Oral Tab lisinopril (PRINIVIL, ZESTRIL) 20 MG Oral Tab MELATONIN PO metoprolol succinate (TOPROL XL) 50 MG Oral TABLET SR 24 HR Omeprazole delayed rel cap 20 MG Oral CAPSULE DELAYED RELEASE tramadol (ULTRAM) 50 MG Oral Tab Family History Problem Relation Age of Onset [...] file Gets together: Not on file Attends temple service: Not on file Active member of [...] Not Asked Social History Narrative Lives in [place]. No pets. Review of Systems - Negative except as noted in HPI. Physical Exam: Vitals: 07/25/19 1033 BP: 120/74 BP Location: Left arm Patient Position: Sitting Pulse: 64 Weight: 155 lb (70.3 kg) Height: 5' 7" (1.702 m) Body mass index is 24.28 kg/m. General: Well nourished, pleasant, alert 84-y.o. female in NAD HEENT: anicteric, MMM, no E/E OP, conj pink Neck: JVP approx 5-6 cm above RA, no carotid bruits or LAD CV: RRR, normal S1 with paradoxically split S2; no appreciable murmurs, rubs, or gallops Pulm: CTAB. No increased work of breathing. Abd: soft, NT, ND, +BS. No appreciable pulsatile masses or bruits. Ext: No sig LE edema, no cyanosis, no cords, redness, or warmth, 2+ distal pulses Neuro: no gross focal deficits. Skin: no visible lesions Labs: Lab Results Component Value Date NA 138 06/20/2019 K 4.3 06/20/2019 CL 101 06/20/2019 CO2 26 06/20/2019 GLUCOSE 109 (H) 06/20/2019 BUN 17 06/20/2019 CREATININE 0.9 06/20/2019 CALCIUM 10.2 (H) 06/20/2019 TP 7.6 06/20/2019 ALBUMIN 4.2 06/20/2019 AST 42 06/20/2019 ALT 32 06/20/2019 ALK 44 06/20/2019 TBILI 0.8 06/20/2019 No results found for: BNP Lab Results Component Value Date CHOL 161 06/20/2019 TRIG 129 06/20/2019 HDL 58 06/20/2019 LDL 77 06/20/2019 LDLHDLRATIO 1.3 06/20/2019 CHOLHDLRATIO 2.8 06/20/2019 Cardiac Studies: TTE 07/19/19: FINAL IMPRESSION: Moderate concentric LVH with Grade I diastolic dysfunction and normal left atrial size. Normal LV systolic function with abnormal septal motion but no other regional wall motion abnormalities; estimated LVEF 55-60%. Normal right heart size and RV systolic function. Aortic valve sclerosis with moderate regurgitation and no stenosis. No pericardial effusion. Compared to prior study 07/13/2017, no significant changes are apparent. Carotid Dopplers 04/11/15: 0-49% stenosis of the bilteral carotid arteries. There is flow reversal in the left vertebral. Significant difference in brachial pressures noted. Holter Monitor 04/07/15: FINDINGS: 1. This is a 24-hour Holter monitor of good quality. 2. The underlying rhythm is normal sinus rhythm with narrow QRS complexes. 3. Minimum heart rate of 52, maximum heart rate of 103, average of 72 beats per minute. 4. 10% of the time the patient was noted to be bradycardic. 5. No significant pauses noted. 6. 4573 isolated beats of supraventricular beats, 4 couplets, 435 bigeminal cycles. 7. 44 isolated ventricular beats. 8. No atrial fibrillation or ventricular tachycardia noted. SUMMARY: Normal sinus rhythm. No significant arrhythmias noted. Assessment & Plan: Ruth Pacheco is a 84-y.o. female with HTN, moderate aortic regurgitation, L subclavian stenosis, chronic LBBB, and intraductal papillary mucinous neoplasm of the pancreas. She was also diagnosed with R breast CA in February 2019 and is s/ p partial mastectomy and XRT as well as Femara. ICD-9-CM ICD-10-CM 1. Essential hypertension 401.9 I10 2. LBBB (left bundle branch block) 426.3 I44.7 3. Aortic valve insufficiency, etiology of cardiac valve disease unspecified 424.1 I35.1 1. HTN: BP excellent today. Has had some lower numbers and mild lightheadedness at times, so we mayneed to decrease her lisinopril dose at some point. Cont current doses of lisinopril and metoprolol for now. 2. Moderate aortic regurgitation: No clinical signs/symptoms of CHF and no significant change on herrecent echo. Will plan to check an echo ~ every 2 years (07/2021) for surveillance of both her LVEF (in the setting of her LBBB) and her AI. Thank you for allowing me to participate in the care of Ruth Pacheco. We will plan on f/u in our office in approx 1 year or sooner prn. If you have any questions or concerns please feel free to call our office at . Indra Bryan MD, 07/25/2019, 10:57 This note was created using my previous note as a template; changes were made where appropriate, andall information in the current note is up to date to the best of my knowledge.Electronically signed by Indra Bryan MD at 2018 10:58 AM ESTdocumented in this encounter Plan of Treatment Date Type Specialty Care Team Description 08/20/2019 Office Visit Radiation Oncology Italo Lua MD Radiation Oncology [address] [address] 09/24/2019 Office Visit Internal Medicine Pedro Aquino MD [address] [place] [address] [phone] 10/31/2019 Office Visit Hematology and Marti Tafoya, Oncology DIRECTOR OF LAND ACQUISITION [address] [address] 11/05/2019 Office Visit General Surgery Torsten Ramires MD [address] [address] [phone] 07/28/2020 Office Visit Cardiology Indra Bryan MD [address] [place], [place] [id number] Health Maintenance Due Date Last Done Comments [...] Problems Progress Blood Pressure Blood Pressure HTN 120/74 No Skezas, < 140/90 (hypertension), (07/25/2019 MD Pedro CARE PLAN 10:33 AM EST) INITIATED Note: Hypertension Care Plan [...] Educational Resources. record my blood pressure results. Softricityshelia is safe and secure way for you [...] Educational Resources: National Heart, Lung, & Blood [place] http://nhlbi.nih.gov/hbp/index.html The DASH Diet Eating Plan http://www.nhlbi.nih.gov/health/health-topics/ topics/dash/ Academy of Nutrition & DIetetics http://eatright.org National Smoking Cessation Site http://smokefree.gov Blood Pressure Blood Pressure HTN (hypertension), 120/74 No Skezas, < 140/90 CARE PLAN INITIATED (07/25/2019 10:33 MD CARL Vasquez) Note: Hypertension Care Plan Based on the [...] Educational Resources: National Heart, Lung, & Blood [place] http://nhlbi.nih.gov/hbp/index.html The DASH Diet Eating Plan http://www.nhlbi.nih.gov/health/health-topics/ topics/dash/ Academy of Nutrition & DIetetics http://eatright.org National Smoking Cessation Site http://smokefree.gov Blood Pressure < Blood Pressure 120/74 (07/25/2019 10:33 No Pedro Aquino MD 150/90 AM EST) [...] of this encounter Implants Implanted Type Area Shell Coremaker Device Shelf Model / Serial Identifier Expiration Date / Lot Iol, [id number] 23.0 Diopter - [id number] Left: Eye STORZ [id number] / Implanted: Qty: 1 on 01/24/2012 at [facility] / [id number] documented as of this encounter Results Not on filedocumented in this encounter Visit Diagnoses Diagnosis Essential hypertension Unspecified essential hypertension LBBB (left bundle branch block) Other left bundle branch block Aortic valve insufficiency, etiology of cardiac valve disease unspecified documented in this encounter Insurance Payer Benefit Plan / Subscriber ID Effective Dates Phone Address Type Group MEDICARE MEDICARE PART A xxxxxxxxxxx 2002-Present Medicare & B [employer] [facility] xxxxxxxxxxx 2016-Present [employer] Guarantor Name Account Type Relation to Date of Phone Billing Patient Address Ruth Pacheco Personal/Family [address] (Home) [place], [place] [phone] [id number] (Work) documented as of this encounter
--- OUTSIDE RECORDS SUMMARY | 2019-08-10 16:28 | XMS REPORT | Summary of Care ---
:1935 Author Organization [facility] Address [address] [facility] [place] [id number] Care Team Providers Name Role Phone Breetunde Pedro Primary Care Provider [facility] Paramedic Unavailable Reason for Referral Refer to Department Only (Routine) Status Reason Specialty Diagnoses / Referred By Referred To Procedures Contact Contact Closed Radiation Oncology Diagnoses Ductal carcinoma in situ (DCIS) of right breast Violet Gomez MD [address] [facility] [place] [id number] Reason for Visit Reason Comments Follow Up Encounter Details Date Type Department Care Team Description 06/12/2019 Office Visit Timur Gomez Ductal carcinoma in Oncology MD Violet situ (DCIS) of right [address] breast (Primary Dx) [place] [id number] [place] [id number] Allergies Active Allergy Reactions Severity Noted Date Comments Tape: Silk Or Adhesive Rash 04/16/2019 Demerol ROUTE DELIVERY MANAGER Reaction 10/04/2006 WENT CRAZY-RIPPED CLOTHES OFF,ECT. Penicillins Respiratory Reaction 10/04/2006 Red Dye Hives 03/07/2013 Sulfa Antibiotics Hives 10/04/2006 documented as of this encounter (statuses as of 06/12/2019) Medications Medication Sig Dispensed Refills Start Date [...] as of this encounter (statuses as of 06/12/2019) Active Problems Problem Noted Date Ductal carcinoma in situ (DCIS) of right breast 04/16/2019 Overview: Added automatically from request for surgery [id number] Abnormal mammogram 02/26/2019 Overview: Added automatically from request for surgery [id number] Subclavian artery stenosis, left 03/02/2018 LBBB (left [...] IPMN Initial Evaluation: 08/20/2012 CT scan (abd/pelvis) [facility] - Consistent w/ diverticulitis. Pancreatic head/body calcifications consistent w/ chronic pancreatitis. Pancreatic tail hypodensity measuring 1.6 cm. 10/12/2012 CT scan (abd/pelvis) [facility] - Pancreatic tail cyst 1.4 cm [...] positive 10/29/2013 MRCP at [facility]--Ordered as MR Abdomen without contrast 1.2 X 0.7 X 1.0 cm simple cyst without concerning imaging characteristics 05/2014 2 pancreatic tail cysts--7X6 mm and 5X4 mm February 2015 [facility] at [facility] in [place], [place] 1.4X0.4X1.1 cm cyst in the pancreatic [...] as of this encounter (statuses as of 06/12/2019) Resolved Problems Problem Noted Date Resolved Date Hypothyroidism 09/13/2007 06/19/2015 Personal history of allergy to penicillin 03/30/2006 05/29/2008 Personal history of allergy to other antibiotic agent 03/30/2006 05/29/2008 Personal history of allergy to narcotic agent 03/30/2006 05/29/2008 documented as of this encounter (statuses as of 06/12/2019) Immunizations Name Administration Dates Next Due Influenza [...] Sign Reading Time Taken Comments Blood Pressure 117/58 06/12/2019 1:38 PM EST Pulse 62 06/12/2019 1:38 PM EST Temperature 36.3 06/12/2019 1:38 PM EST C (97.4 F) Respiratory Rate 16 06/12/2019 1:38 PM EST Oxygen Saturation - - Inhaled Oxygen Concentration - - Weight 72.3 kg (159 lb 8 oz) 06/12/2019 1:38 PM EST Height 171.5 cm (5' 7.5") 06/12/2019 1:38 PM EST Body Mass Index 24.61 06/12/2019 1:38 PM EST documented in this encounter Patient Instructions Patient InstructionsViolet Gomez MD - 06/12/2019 1:30 PM ESTReturn appointments timin-4 weeks Provider type: me Referrals: radiation oncology,next Patient Instructions: 1. 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 She says she has a personal history of a left breast excisional biopsy done in 1989, with a benign diagnosis. HISTORY OF PRESENT ILLNESS: Ruth Pacheco is a pleasant 84-y.o. female, who presents to Medical oncology clinic for discussionof adjuvant treatment options for right breast DCIS. Since last being seen by me, she reports feeling well. She met with radiation oncology locally in [place] and was recommended radiation therapy, but she is very hesitant to proceed with it. She just returned from vacation in [place]. She denies any weight loss, bone pain, back pain and any other systemic symptoms. She does not have any soreness in her breasts anymore She is very active in general and is independent of her ADLs. She lives with her significant other and is an avid traveler. She is going to [place] next week for vacation REVIEW OF SYSTEMS: Review of Systems Constitutional: [...] BLADDER EXSTROPHY REPAIR 10/2006 midurethral sling at [facility] BLADDER OPERATION NEC BREAST OPERATION NEC CHOLECYSTECTOMY 1987 EUS 1.9 x 1.6 cm pancreatic tail cyst. Cytology negative for malignancy. Mucin positive. Amylase <30. CEA 2590. PHACOEMULSIFICATION WITH INTRA OCULAR LENS 01/24/2012 Procedure: PHACOEMULSIFICATION WITH INTRA OCULAR LENS; Surgeon: Cachorro Joshi MD; Location: [facility] ANCILLARY OR; Laterality: Left; OK EXC SKIN MALIG 0.6-1CM FACE,FACIAL OK MASTECTOMY, PARTIAL 1989 left breast OK MASTECTOMY, PARTIAL Right 04/27/2019 Procedure: reexcision right partial mastectomy; Surgeon: Torsten Ramires MD; Location:[facility] MAIN OR OK REMOVAL GALLBLADDER OK REMOVE TONSILS/ADENOIDS,<12 Y/O 1957 @CMEDOP@ Allergies Allergen Reactions Adhesive [Tape: Silk Or Adhesive] Rash Demerol ROUTE DELIVERY MANAGER Reaction WENT CRAZY-RIPPED CLOTHES OFF,ECT. Pcn [...] file Gets together: Not on file Attends nondenominational service: Not on file Active member of [...] Not Asked Social History Narrative Lives in [place]. No pets. PHYSICAL EXAMINATION: BP 117/58 (BP Location: Left arm, Patient Position: Sitting) | Pulse 62 | Temp 97.4 F (36.3 C) (Temporal) | Resp 16 | Ht 5' 7.5" (1.715 m) | Wt 159 lb 8 oz (72.3 kg) | LMP (LMP Unknown)| BMI 24.61 kg/m Wt Readings from Last 3 Encounters: 06/12/19 159 lb 8 oz (72.3 kg) 05/22/19 157 lb (71.2 kg) 04/27/19 154 lb 12.8 oz (70.2 kg) Physical Exam Constitutional: She is oriented [...] She exhibits no tenderness. Right breast exhibits tenderness (Slightly tender to palpation at the surgical incision site). Right breast exhibits no inverted nipple, no mass, no nipple discharge and no skin change. Left breast exhibits no inverted nipple , no mass, no nipple discharge, no skin [...] reviewed labs and radiology in [facility]. I confirmed the findings as listed [...] Close margins on right breast excisional biopsy ([id number]) SPECIMEN Procedure Re-excision partial mastectomy Specimen Laterality [...] acini and stroma, sclerosing adenosis Addendum ER, OK tests by immunohistochemistry are performed and interpreted at [facility] withthe following results: ER: 93.65 % Positive OK: 76.28 % Positive RADIOLOGY REVIEW: 01/12/2019 screening [...] Diff Lab Results Component Value Date WBC 7.35 02/15/2019 RBC 4.16 02/15/2019 HGB 12.6 02/15/2019 HCT 39.8 02/15/2019 MCV 95.7 (H) 02/15/2019 MCH 30.3 02/15/2019 MCHC 31.7 (L) 02/15/2019 RDW 12.5 02/15/2019 MPV 10.2 02/15/2019 Lab Results Component Value Date NEUTROPCT 73.1 (H) 02/15/2019 Last Complete Metabolic Panel Lab Results Component Value Date BUN 19 (H) 02/15/2019 CREATININE 0.9 02/15/2019 EGFR 60 02/15/2019 NA 131 (L) 02/15/2019 K 4.0 02/15/2019 CL 100 02/15/2019 CO2 20 (L) 02/15/2019 CALCIUM 9.1 02/15/2019 AST 39 02/15/2019 ALT 36 02/15/2019 ASSESSMENT AND PLAN: Ruth Pacheco is a pleasant 84-y.o. female, who presents to Medical oncology clinic for discussionof adjuvant treatment options for DCIS in the right breast. 1. Ductal carcinoma in situ of right breast, ER, OK positive: -We discussed about the natural history [...] study, NSABP B-35 (Lancet. 2016 Oct 04; 387(98156) : [id number]) presented at [facility] 2015, showed Arimidex was superior than tamoxifen in postmenopausal women younger than 60 years old. I generally recommend using adjuvant tamoxifen for 5 years. For postmenopausal women younger than 60 years old, anastrozole is a good option. We choose the medication depending on the patient's health status and potential risk factors for side effects. -She is not sure if she wants to proceed with radiation treatment at this point. I offered her a second opinion with our radiation oncologist to help her make the decision and she was agreeable to it. We discussed at length today again the side effect profile of tamoxifen versus letrozole, and after a long discussion , the patient and her daughter, were considering letrozole . They would like to discuss with patient's PCP regarding his thoughts on letrozole, as he has known the patient for a very long time and they value his opinion. They would like to meet with radiation oncology, and then regroup with me in 2 to 3 weeks to finalize decision regarding starting letrozole 2. Osteoporosis: -Her most recent DEXA scan from 2 weeks ago, did show slightly worsening of T [...] her calcium (1000 mg) and vitamin D (3390-8200 units) supplementation and recommended weight-bearing exercises on a daily basis. I also warned against use of vaginal estrogen creams for treatment of vaginal dryness. --Continue Fosamax for now. I will see her back after her consultation with radiation oncology. Pain Ruth Pacheco is noted in assessment to have a 5/10. The patient's individualized treatment will therefore consist of: Reassessment at regular intervals Follow up: -RTC 3 WEEKS The patient has our contact information and is encouraged to contact us with any questions or concerns. We spent 40 minutes with the patient, more than 50% of that time spent in counseling and coordination of care. Author: Violet Gomez MD 06/12/2019 17:21 Hematology/Oncology [facility]. documented in this encounter Plan of Treatment Date Type Specialty Care Team Description 06/13/2019 Appointment Radiation Therapy 06/20/2019 Office Visit Internal Medicine Pedro Aquino MD [facility] [place] [address] 07/02/2019 Office Visit Hematology and Oncology Violet Gomez MD [address] [phone] 07/19/2019 Orders Only Cardiology 07/25/2019 Office Visit Cardiology Indra Bryan MD [address] [place] [address] [phone] 11/05/2019 Office Visit General Surgery Torsten Ramires MD [address] [place] [address] [phone] Name Type Priority Associated Diagnoses Order Schedule REFER TO RADIATION Referral Routine Ductal carcinoma in Expected: 2018, ONCOLOGY/THERAPY situ (DCIS) of right Expires: 06/12/2020 breast Health Maintenance Due Date Last Done Comments [...] Educational Resources: National Heart, Lung, & Blood [place] http://nhlbi.nih.gov/hbp/index.html The DASH Diet Eating Plan http://www.nhlbi.nih.gov/health/health-topics/ [...] Educational Resources. record my blood pressure results. eGWatchGuardrie is safe and secure way for you [...] Educational Resources: National Heart, Lung, & Blood [place] http://nhlbi.nih.gov/hbp/index.html The DASH Diet Eating Plan http://www.nhlbi.nih.gov/health/health-topics/ topics/dash/ Academy of Nutrition & DIetetics http://eatright.org National Smoking Cessation Site http://smokefree.gov Blood Pressure < Blood Pressure 117/58 (06/12/2019 1:38 No Pedro Aquino MD 150/90 PM EST) Note: This is an individualized treatment (blood pressure) goal for Rtuh Pacheco: Displayed above (on the left) is [...] of this encounter Implants Implanted Type Area Dermatology Nurse Practitioner Device Shelf Model / Serial Identifier Expiration Date / Lot Iol, [id number] 23.0 Diopter - [id number] Left: Eye STORZ [id number] / Implanted: Qty: 1 on 01/24/2012 at [facility] / [id number] documented as of this encounter Results Not on filedocumented in this encounter Visit Diagnoses Diagnosis Ductal carcinoma in situ (DCIS) of right breast - Primary documented in this encounter Insurance Payer Benefit Plan / Subscriber ID Effective Dates Phone Address Type Group MEDICARE MEDICARE PART A xxxxxxxxxxx 2002-Present Medicare & B [facility] xxxxxxxxxxx 2016-Present [facility] (Home) [place], [place] [phone] (Work) documented as of this encounter
[2019-08-10] MEDS ORDERED: NS 0.9% 1000 ML** 1,000 ML IV ONE (16:52)
[2019-08-10 16:56] LABS: ABS Eosinophils 0.1 10^3/ul (0-0.6); ABS Lymphocytes 0.7 10^3/ul (1.0-4.8); ABS Monocytes 0.3 10^3/ul (0-0.8); ABS Neutrophils 4.6 10^3/ul (1.5-7.7); Eosinophil % 1.7 %; Hematocrit 39 % (35-47); Hemoglobin 13.5 g/dL (12.0-16.0); Lymphocyte % 12.2 %; Mean Corpuscular HGB Conc 35 g/dL (31-36); Mean Corpuscular Hemoglobin 33 pg (27-31); Mean Corpuscular Volume 94 fL (80-97); Mean Platelet Volume 7.7 fL (7.4-10.4); Nucleated Red Blood Cells % 0.2; Platelet Count 127 10^3/uL (150-450); Red Blood Count 4.14 10^6 /uL (3.70-4.87); Red Cell Distribution Width 13 % (10-15); White Blood Count 5.8 10^3/uL (3.5-10.8)
[2019-08-10 17:12] LABS: Albumin 4.1 g/dL (3.2-5.2); Albumin/Globulin Ratio 1.6 (1-3); BUN/Creatinine Ratio 19.8 (8-20); Calcium 9.7 mg/dL (8.6-10.3); EGFR African American 56.9 (>60); EGFR Non-African American 47.1 (>60); Globulin 2.5 g/dL (2-4); Potassium 4.1 mmol/L (3.5-5.0); Total Bilirubin 0.8 mg/dL (0.2-1.0); Total Protein 6.6 g/dL (6.4-8.9)
[2019-08-10 17:13] LABS: Troponin I 0.01 ng/mL (<0.03)
[2019-08-10] MEDS ORDERED: Iodixanol* (CONTRAST) 320 MG/ML 100 ML SDV IV ONE (18:12)
[2019-08-10] MEDS ORDERED: Pantoprazole TAB * 40 MG TAB PO PRN (21:05)
--- NOTE | 2019-08-10 21:32 | HP ---
History of Present Illness - History of Present Illness Reason for Visit: Syncope History of Present Illness: Ruth Pacheco is a 84 y/o female with significant history of right breast cancer s/p partial mastectomy and radiation recently, just initiated letrozole this week; also she had significant history of hypertension, aortic insufficiency, and hypothyroidism after TRUJILLO. She presented with syncope this after in a libertarian. She went to bathroom for a bowel movement, and when she walked out, she passed out for about 2min, didn't fall or fit the ground as a few people were holding her up. She felt generalized tiredness before syncope, no dizziness, no chest pain, or palpitation. She stated she had some constipation recently thus she was taking prunes and she managed to poop before this happened. She recalled the stool as tarry stool which never happened to her. She immediately regained consciousness after passing out according to the , and was able to talk as usual. She has no jerking movement, no urinary incontinences during syncope. She is following up with Dr. Bryan in [place] for her aortic insuffiency, she just had an echogram last week which she recalled stable compared last one last year. In ED, she had blood pressure at 90s initially, and then went up to 130s which is her norm. She denied dizziness during postion changes. - Past Medical History Past Medical History: 1. Hypertension 2. Hyperlipidemia 3. GERD 4. diverticulitis 5. Duodenal ulcer 6. Hyperthyroidism s/p radioactive iodine, now hypothyroid on levothyroixine 7. left bundle branch block 8. Moderate aortic insufficiency 9. Breast Cancer diagnosed in May 2019, s/p partial mastectomy twice and radiation, completed in Jul, following up with Dr. Violet don - Past Surgical History Past Surgical History: 1. Right partial mastectomy 2018 2. Appendectomy at age 15 3. Cholecystitis 20 years ago 4. Urethral sling 5. Tonsillectomy - Past Family History Past Family History: Father in the 80s from lung cancer, also had triple vessel disease. Mother from ovarian cancer at age 89. No pother family history of heart disease, cancer or genetic diseases. - Past Social History Past Social History: Ex-smoker, smoking 2PPD for 20 years. No alcohol, no substance use. Baseline ambulating independently. Medications: Home Medications Medication Instructions Recorded Confirmed Type Alendronate (NF) [Fosamax (NF)] 70 mg PO .Mondays11/25/16 08/10/19 History Atorvastatin* [Lipitor 40 MG*] 40 mg PO DAILY 11/25/16 08/10/19 History Lisinopril TAB* [Prinivil TAB 10 20 mg PO DAILY 11/25/16 08/10/19 History MG*] Metoprolol Succinate XL TAB* 50 mg PO DAILY 11/25/16 08/10/19 History [Toprol XL TAB*] Multivitamins/Minerals TAB* 1 tab PO DAILY 11/25/16 08/10/19 History [Theragran/minerals TAB*] Omeprazole CAP (NF) [Prilosec CAP* 20 mg PO DAILY PRN 11/25/16 08/10/19 History 20 MG] Levothyroxine TAB* [Synthroid 88 88 mcg PO DAILY@0600 #30 tab 11/26/16 08/10/19 Rx MCG TAB*] Torsemide TAB* [Demadex 20 MG*] 5 mg PO DAILY PRN 09/17/17 08/10/19 History Magnesium Oxide TAB* [MagOx 400 400 mg PO DAILY #14 tab 01/02/19 08/10/19 Rx TAB*] Letrozole (NF) [Femara (NF)] 2.5 mg PO DAILY 08/10/19 08/10/19 History vitamin D 1000U Calcium tablet no torsemide use at home Allergies/Adverse Reactions: Allergies Allergy/AdvReac Type Severity Reaction Status Date / Time meperidine [From Demerol] Allergy See Comment Verified 01/01/19 00:55 Penicillins Allergy Difficulty Verified 01/01/19 00:55 Breathing red dye Allergy Hives Verified 01/01/19 00:55 Sulfa (Sulfonamide Allergy Hives Verified 01/01/19 00:55 Antibiotics) Review of Systems - Review of Systems Constitutional: Negative: Fever, Chills, Sweats, Weakness, Malaise, Other Eyes: Negative: Pain, Vision Change, Conjunctivae Inflammation, Eyelid Inflammation, Redness, Other Respiratory: Negative: Cough, Dry, Shortness of Breath, Hemoptysis, SOB with Excertion, Pleuritic Pain, Sputum, Wheezing Cardiovascular: Negative: Chest Pain, Palpitations, Orthopnea, Paroxysmal Noc. Dyspnea, Edema, Light Headedness, Other Gastrointestinal: Negative: Nausea, Vomiting, Abdominal Pain, Diarrhea, Constipation, Melena, Hematochezia, Other Genitourinary: Negative: Dysuria, Frequency, Incontinence, Hematuria, Retention , Other Musculoskeletal: Negative: Neck Pain, Shoulder Pain, Arm Pain, Back Pain, Hand Pain, Leg Pain, Foot Pain, Other Skin: Negative: Rash, Lesions, Isidro, Bruising, Other Neurological: Positive: Other - Syncope as mentioned in H&P Exam Vital Signs: Vital Signs (72 hours) 08/10/19 08/10/19 08/10/19 15:42 15:53 15:54 Temperature 97.6 F Pulse Rate 66 73 72 Respiratory 16 Rate Blood Pressure 115/60 105/60 (mmHg) O2 Sat by Pulse 93 93 95 Oximetry 08/10/19 08/10/19 08/10/19 16:00 16:24 16:28 Temperature Pulse Rate 63 66 64 Respiratory 12 16 Rate Blood Pressure 96/60 96/60 (mmHg) O2 Sat by Pulse 94 96 95 Oximetry 08/10/19 08/10/19 08/10/19 16:41 16:54 17:00 Temperature Pulse Rate 73 63 63 Respiratory 18 19 17 Rate Blood Pressure 95/61 117/74 (mmHg) O2 Sat by Pulse 92 95 96 Oximetry 08/10/19 08/10/19 08/10/19 18:00 18:24 18:54 Temperature Pulse Rate 68 73 72 Respiratory 11 18 19 Rate Blood Pressure 140/78 128/64 (mmHg) O2 Sat by Pulse 96 96 95 Oximetry 08/10/19 08/10/19 08/10/19 19:00 19:24 19:54 Temperature Pulse Rate 73 74 79 Respiratory 23 17 11 Rate Blood Pressure 154/81 155/77 (mmHg) O2 Sat by Pulse 95 95 95 Oximetry 08/10/19 08/10/19 08/10/19 20:00 20:18 20:24 Temperature Pulse Rate 80 84 74 Respiratory 18 21 22 Rate Blood Pressure 157/95 146/73 (mmHg) O2 Sat by Pulse 96 94 96 Oximetry 08/10/19 08/10/19 20:54 21:00 Temperature Pulse Rate 86 98 Respiratory 14 17 Rate Blood Pressure 169/81 (mmHg) O2 Sat by Pulse 95 96 Oximetry Exam: Appearance: well groomed elegant lady, not in acute distress Eyes: sclera anicteric, no conjunctival pallor ENT: mucous membranes moist, pharynx appears erythematous, tonsils not enlarged , no exudates Respiratory: Clear to auscultation, no signs of respiratory distress Cardiovascular: Normal S1, S2. No murmurs Abdomen: Soft, non tender, BS+ Musculoskeletal: ROM intact Neurological: A&Ox3, awake and alert, mentation is normal, speech is fluent and appropriate, strength full in all 4 limbs, hyporeflexia, Cranial nerve intact Psychiatric: affect is normal, does not appear anxious or depressed Result Diagrams: 08/10/19 16:38 08/10/19 16:38 Additional Lab and Data: Trop normal Diagnostic Imaging: CTPA: postsurgical changes in right lateral breast 2.1x2.3cm nodular opacity, can't rule out malignancy EKG Data: EKG; sinus rhythm, HR 63, APC, LBBB, no new changes from last EKG on file Assessment/Plan - Assessment/Plan Assessment: Ruth Pacheco is a 84 y/o female with significant history of right breast cancer s/p partial mastectomy and radiation recently on letrozole, hypertension , aortic insufficiency, and hypothyroidism. She presented with syncope today in a libertarian after a BM. Despite the description of tarry stool, her stool guaic test is negative and no Hb drop, thus less likely this is due to GI bleed. Based on her cancer history, aortic insufficiency history and clinical presentation, cardiogenic syncope is most concerning in her case. Her initial workup is negative including neg trop, ekg, CT PA is also negative. We will admit her for telemetry monitoring . Other differentials includes orthostatic, and vasovagal. Vasovagal syncope is highly likely with her straining with BM prior to syncope and libertarian environment. Orthostatic also needs to be ruled out with BP variation noted in ED. Plan: 1. Syncope cardiogenic vs vasovagal vs orthostatic - telemetry monitoring - trace echo record from his housecleaner floor (no need to repeat since it was just done last week) - orthostatic vital signs tomorrow morning - resume old meds - less likely neurogenic syncope likely TIA in this case, but we will also get us carotid as per family request 2. ANUJ - creatnine baseline 0.88-> 1.11 - likely dehydration, will recheck tomorrow 3. Breast cancer s/p mastectomy and radiation, on hormone therapy - nodular opacities found in CT scan, post surgical changes vs malignancy - trace oncology record - oncologist follow up outpt 4. Hypertension - well controlled - resume old med 5. Hypothyroidism - repeat TSH normal - continue current med 6. DVT prophylaxis -sc lovenox Attestation Documenting Resident: Leticia Raza Supervising Physician: Jaime Barber Attestation: This service has been performed in part by a resident under the direction of a teaching physician.I, Jaime Barber, performed the service, or was physically present during the critical, or benito portions of the service, furnished by the resident. I participated in the management of the patient.
[2019-08-10] MEDS ORDERED: Enoxaparin(*) 40 MG/0.4 ML SYR SUBCUT SCH (22:00)
[2019-08-10 22:51] LABS: TSH (Thyroid Stimulating Horm) 3.83 mcIU/mL (0.34-5.60)
[2019-08-10] MEDS ORDERED: Atorvastatin* 40 MG TAB PO SCH (23:45)
[2019-08-10] MEDS ORDERED: Lisinopril TAB* 10 MG PO SCH (23:45)
[2019-08-11] MEDS ORDERED: Levothyroxine TAB* 88 MCG TAB PO SCH (06:00)
[2019-08-11] MEDS ORDERED: Cholecalciferol TAB* 1000 UNITS PO SCH (09:00)
[2019-08-11] MEDS ORDERED: Magnesium Oxide TAB* 400 MG PO SCH (09:00)
[2019-08-11] MEDS ORDERED: Multivitamins/Minerals TAB PO SCH (09:00)
[2019-08-11] MEDS ORDERED: Metoprolol Succinate XL TAB* 50 MG PO SCH (09:00)
--- NOTE | 2019-08-11 09:09 | PN ---
Subjective Date of Service: 08/11/19 Interval History: Admitted last night for syncope. Most likely vasovagal syncope from standing at [employer] for extended period of time in setting of decreased PO, vs situational reflex-mediated syncope in setting of defecation/straining. Orthostatics negative. Pt feels well and prefers to leave hospital this morning. She states she has close follow up with her PCP, oncologist, and middle card tender, and would prefer to recheck her renal function with them. Objective Active Medications: Alendronate Sodium (Fosamax (Nf)) 70 mg PO Mo [facility]; Protocol Atorvastatin Calcium (Lipitor*) 40 mg PO BEDTIME [facility] Last Admin: 08/10/19 23:57 Dose: 40 mg Cholecalciferol (Vitamin D Tab*) 1,000 units PO DAILY [facility] Last Admin: 08/11/19 08:53 Dose: 1,000 units Enoxaparin Sodium (Lovenox(*)) 40 mg SUBCUT Q24H [facility] Last Admin: 08/10/19 23:57 Dose: 40 mg Letrozole (Femara (Nf)) 2.5 mg PO DAILY [facility]; Protocol Last Admin: 08/11/19 08:54 Dose: 2.5 mg Levothyroxine Sodium (Synthroid Tab*) 88 mcg PO DAILY@0600 [facility] Last Admin: 08/11/19 05:17 Dose: 88 mcg Lisinopril (Prinivil Tab*) 20 mg PO BEDTIME [facility] Last Admin: 08/10/19 23:57 Dose: 20 mg Magnesium Oxide (Magox 400 Tab*) 400 mg PO DAILY [facility] Last Admin: 08/11/19 08:54 Dose: 400 mg Metoprolol Succinate (Toprol Xl Tab*) 50 mg PO DAILY [facility] Last Admin: 08/11/19 08:54 Dose: 50 mg Multivitamins/Minerals (Theragran/Minerals Tab*) 1 tab PO DAILY [facility] Last Admin: 08/11/19 08:54 Dose: 1 tab Pantoprazole Sodium (Protonix Tab*) 40 mg PO DAILY PRN PRN Reason: HEARTBURN Vital Signs - 8 hr 08/11/19 08/11/19 03:11 07:15 Temperature 98 F 98 F Pulse Rate 64 62 Respiratory 16 18 Rate Blood Pressure 134/61 146/63 (mmHg) O2 Sat by Pulse 95 93 Oximetry Oxygen Devices in Use Now: None Appearance: well appearing pleasant woman in NAD Eyes: No Scleral Icterus Ears/Nose/Mouth/Throat: Clear Oropharnyx, Mucous Membranes Moist Neck: NL Appearance and Movements; NL JVP, Trachea Midline Respiratory: Symmetrical Chest Expansion and Respiratory Effort, Clear to Auscultation Cardiovascular: NL Sounds; No Murmurs; No JVD, RRR Abdominal: NL Sounds; No Tenderness; No Distention, No Hepatosplenomegaly Extremities: No Edema Neurological: Alert and Oriented x 3 Result Diagrams: 08/10/19 16:38 08/10/19 16:38 Additional Lab and Data: Trop normal Microbiology and Other Data: Microbiology 08/10/19 16:40 Stool Occult Blood (SANDRA) - Final Stool Diagnostic Imaging: CTPA: postsurgical changes in right lateral breast 2.1x2.3cm nodular opacity, can't rule out malignancy EKG Data: EKG; sinus rhythm, HR 63, APC, LBBB, no new changes from last EKG on file Assess/Plan/Problems-Billing Assessment: 84W with R breast cancer s/p partial mastectomy, now on radiation and letrozole , HTN, aorti insufficiency, and hypothyroidism, who presents with episode of syncope after decreased PO then standing at a democrat for hours. Syncope preceded by feelings of light headedness, clamminess, and urge to defecate. Likely vasovagal. Labs remarkable for very mild increase in creatinine. Orthostatics normal. No events on telemetry. Patient had echo last week that was reportedly unchanged from priors. Pt educated to hydrate, also to sit down immediately if symptoms recur. She has very close follow up with outpatient providers and looks forward to discharge now.
[2019-08-11 11:23] VITALS: BP 111/68
--- NOTE | 2019-08-11 22:27 | DS ---
CC: Dr. Pedro Aquino * DISCHARGE SUMMARY: DATE OF ADMISSION: 08/10/19 DATE OF DISCHARGE: 08/11/19 PRIMARY CARE PHYSICIAN: Dr. Pedro Aquino. PRIMARY DIAGNOSIS: Vasovagal syncope. SECONDARY DIAGNOSES: 1. Breast cancer, status post partial mastectomy, now on radiation and letrozole. 2. Hypertension. 3. Hypothyroidism. 4. Aortic insufficiency. PRIMARY CARE PROVIDER: Dr. Pedro Aquino. DISCHARGE MEDICATIONS: 1. Letrozole 2.5 mg daily. 2. Metoprolol succinate 50 mg daily. 3. Lisinopril 20 mg daily. 4. Atorvastatin 40 mg daily. 5. Levothyroxine 88 mcg daily. 6. Alendronate 70 mg on Mondays. 7. Mag oxide 400 mg daily. 8. Multivitamins 1 tablet daily. 9. Omeprazole 20 mg as needed for GERD. HISTORY OF PRESENT ILLNESS: Ms. Pacheco is an 84-year-old woman with right- sided breast cancer, status post partial mastectomy and radiation, on letrozole ; hypertension; aortic insufficiency; hypothyroidism after TRUJILLO, who is presenting with syncope during democrat. She reports that she decreased her water intake on the day of democrat as she did not want to use the bathroom very much. After standing for several hours at the democrat, she reports she began to feel lightheaded and woozy and as though she had the urge to have a bowel movement, so she went to the bathroom. She reports having a large loose dark bowel movement, but denied melena. After a bowel movement, she still felt clamminess and lightheadedness, so she told her partner she wanted to leave. He told her to stand outside while he went to get the car and while standing and waiting for him, she lost consciousness. The patient's fall was witnessed and she did not hit her head as several people around her holding her up. Around the time of all this, the patient did not feel chest pain, shortness of breath, palpitations. The patient immediately regained consciousness after passing out , and was able to talk and walk as usual without focal weakness. During this episode, she had no jerking movements, incontinence, or tongue biting. The patient recently had an echocardiogram, which she states was stable compared to her echocardiogram from last year. In the emergency room, the patient's blood pressure was initially recorded as 115/60, but later had recordings with systolics in the 90s, so hospitalist team was called to admit the patient for further monitoring. The patient was admitted to telemetry service and had no cardiac events overnight. She received IV fluids ordered in the ER and by the next morning, her orthostatic vital signs were negative. Her lowest recorded blood pressure throughout admission was 62 and she had no recurrence of lightheadedness, though her beta- sue dose was not decreased. She was resumed on all her home medications without recurrence of symptoms. Her only significant lab abnormality was a creatinine of 1.11, which was increased from last recorded creatinine 7 months ago of 0.88. The patient did report p.o. intake the day prior and preferred to leave the hospital and follow up with her PCP rather than waiting for a repeat basic metabolic panel after being given IV fluids. On the morning of discharge , the patient reported feeling well. She states that she has never had syncope like this before and she was educated on what to do if these symptoms were to recur. REVIEW OF SYSTEMS: A complete 10-point review of systems was performed and all systems were negative. PERTINENT DIAGNOSTIC STUDIES: CBC is unremarkable. BMP is notable for creatinine of 1.11. Chest x-ray with findings concerning for COPD given lungs hyperinflated. No pleural effusion or other abnormality seen. Chest CTA without acute findings or pulmonary embolism, significant for emphysema. Surgical change noted in the lateral right breast with 2.1 x 2.3 nodular opacity seen on series 2, image 69, likely representing postsurgical change, but neoplastic etiology cannot be excluded and comparison with surgical history and prior mammography is recommended. Cardiomegaly, post cholecystectomy. EKG with normal sinus rhythm, rate 63, left bundle branch block, no changes since last EKG. DISCHARGE PLAN: The patient prefers further testing to be done with all of her outpatient providers, as she reports she has excellent followup with significant recent testing including echocardiogram. She follows Dr. Aquino for primary care and also has outpatient oncologist and grind operator that she both saw recently. No medication changes were made to her home regimen. She was educated on return precautions which include, but are not limited to, recurrence of syncope or new symptoms, palpitations, chest pain, or new seizure - like activity. She should eat a healthy diet low in processed food. She should resume activities as tolerated. DISPOSITION: To home. CONDITION: Improved. TIME SPENT: Approximately 60 minutes was spent on discharge of this patient, more than half of which was spent with care coordination at bedside for interview and exam. [id number]/CPS #: [id number] ANDREA
[2019-08-13] MEDS ORDERED: Alendronate (NF) 70 MG TAB PO SCH (08:30)
== END 2019-08-11 11:47 | disposition home or self-care (01) ==
LOC: ED 15:37 → INTOOBSV 21:12 → MEDTELE 21:12
PROVIDERS: ADMIT Internal Medicine; ATTEND Internal Medicine
DX: R55 Syncope and collapse (principal); C50.919 Malignant neoplasm of unspecified site of unspecified female breast; Z85.3 Personal history of malignant neoplasm of breast; Z92.21 Personal history of antineoplastic chemotherapy; I10 Essential (primary) hypertension; E03.9 Hypothyroidism, unspecified; I35.1 Nonrheumatic aortic (valve) insufficiency; E78.5 Hyperlipidemia, unspecified; K21.9 Gastro-esophageal reflux disease without esophagitis; I44.7 Left bundle-branch block, unspecified; N17.9 Acute kidney failure, unspecified; Z79.899 Other long term (current) drug therapy; Z87.891 Personal history of nicotine dependence
CPT/HCPCS: 36415; 71046; 71275; 80053; 82270; 84443; 84484; 85025; 86850; 86900; 86901; 93005; 96360; 96372; 99284; A9270-GY; G0378; J1650; Q9967

== ENCOUNTER 2020-01-22 21:23 | Inpatient (IN) ==
[2020-01-22 22:16] LABS: ABS Lymphocytes 0.8 10^3/ul (1.0-4.8); ABS Monocytes 0.6 10^3/ul (0-0.8); Eosinophil % 0.1 %; Hematocrit 39 % (35-47); Hemoglobin 13.8 g/dL (12.0-16.0); Lymphocyte % 9.9 %; Mean Corpuscular HGB Conc 36 g/dL (31-36); Mean Corpuscular Hemoglobin 32 pg (27-31); Mean Corpuscular Volume 90 fL (80-97); Mean Platelet Volume 7.9 fL (7.4-10.4); Platelet Count 204 10^3/uL (150-450); Red Blood Count 4.28 10^6 /uL (3.70-4.87); Red Cell Distribution Width 13 % (10-15); White Blood Count 8.1 10^3/uL (3.5-10.8)
[2020-01-22 22:27] LABS: INR 1.23 (0.82-1.09)
[2020-01-22 22:32] LABS: Albumin 4.1 g/dL (3.2-5.2); Albumin/Globulin Ratio 1.4 (1-3); BUN/Creatinine Ratio 21.4 (8-20); Calcium 9.2 mg/dL (8.6-10.3); EGFR African American 65.7 (>60); EGFR Non-African American 54.3 (>60); Potassium 3.2 mmol/L (3.5-5.0); Total Bilirubin 1.6 mg/dL (0.2-1.0); Total Protein 7.1 g/dL (6.4-8.9)
[2020-01-22] MEDS ORDERED: NS 0.9% 1000 ml BAG 1,000 ML IV ONE (22:48)
[2020-01-22 23:00] LABS: TSH (Thyroid Stimulating Horm) 2.73 mcIU/mL (0.34-5.60)
[2020-01-23] MEDS ORDERED: Al Hydrox/Mg Hydrox/Simet LIQ 30 ML UDC PO PRN (00:06)
[2020-01-23 00:32] LABS: Urine Appearance Cloudy; Urine Bilirubin Negative (Negative); Urine Blood Negative (Negative); Urine Color Yellow; Urine Glucose 1+(50 mg/dL) (Negative); Urine Ketones Negative (Negative); Urine Nitrite Negative (Negative); Urine Protein 1+(30 mg/dL) (Negative); Urine Specific Gravity 1.013 (1.010-1.030); Urine Urobilinogen Negative (Negative)
[2020-01-23 00:35] LABS: Urine Bacteria Absent (Absent); Urine Red Blood Cell Absent (Absent); Urine Squamous Epithelial Cell Present (Absent); Urine White Blood Cell Trace(0-5/hpf) (Absent)
[2020-01-23] MEDS ORDERED: Magnesium Sulfate IV 3 GM in NS 0.9% 100 ml BAG 100 ML IVPB ONE (01:23)
[2020-01-23] MEDS ORDERED: Potassium Chlor 20 meq TAB.ER PO SCH ×2 (02:00→09:00)
[2020-01-23 02:14] LABS: Calcium 8.4 mg/dL (8.6-10.3)
[2020-01-23 02:20] LABS: BUN/Creatinine Ratio 22.4 (8-20); EGFR African American 77.5 (>60)
[2020-01-23] MEDS ORDERED: Sodium Chloride 3% HYPERTONIC 120 ML IV ONE (02:45)
[2020-01-23] MEDS: Heparin 5000 UNITS/ML VIAL(*) 1 ml vial SUBCUT SCH ×3 (06:05→22:10)
[2020-01-23 06:16] LABS: ABS Eosinophils 0.1 10^3/ul (0-0.6); ABS Lymphocytes 1.5 10^3/ul (1.0-4.8); ABS Monocytes 1.1 10^3/ul (0-0.8); Eosinophil % 0.6 %; Hematocrit 37 % (35-47); Hemoglobin 13.2 g/dL (12.0-16.0); Lymphocyte % 14.1 %; Mean Corpuscular HGB Conc 35 g/dL (31-36); Mean Corpuscular Hemoglobin 32 pg (27-31); Mean Corpuscular Volume 90 fL (80-97); Mean Platelet Volume 8.1 fL (7.4-10.4); Nucleated Red Blood Cells % 0.1; Platelet Count 169 10^3/uL (150-450); Red Blood Count 4.14 10^6 /uL (3.70-4.87); Red Cell Distribution Width 13 % (10-15); White Blood Count 10.3 10^3/uL (3.5-10.8)
[2020-01-23 06:33] LABS: Albumin 3.7 g/dL (3.2-5.2); Albumin/Globulin Ratio 1.4 (1-3); BUN/Creatinine Ratio 20.2 (8-20); Calcium 8.6 mg/dL (8.6-10.3); EGFR African American 78.5 (>60); EGFR Non-African American 64.9 (>60); Globulin 2.7 g/dL (2-4); HDL Cholesterol 50.8 mg/dL; Magnesium 2.5 mg/dL (1.9-2.7); Potassium 3.2 mmol/L (3.5-5.0); Total Bilirubin 1.5 mg/dL (0.2-1.0); Total Protein 6.4 g/dL (6.4-8.9)
[2020-01-23] MEDS: Multivitamins/Minerals TAB PO SCH (08:13)
[2020-01-23 10:37] LABS: BUN/Creatinine Ratio 19.8 (8-20); Blood Urea Nitrogen 16 mg/dL (6-24); CO2 Carbon Dioxide 24 mmol/L (22-32); Calcium 8.2 mg/dL (8.6-10.3); Chloride 85 mmol/L (101-111); EGFR African American 81.9 (>60); EGFR Non-African American 67.7 (>60); Glucose 143 mg/dL (70-100)
[2020-01-23 11:27] LABS: Sodium 117 mmol/L (135-145)
[2020-01-23 11:28] LABS: Anion Gap 8 mmol/L (2-11)
[2020-01-23] MEDS ORDERED: Potassium Chlor 20 meq TAB.ER PO ONE (13:46)
[2020-01-23 14:47] LABS: BUN/Creatinine Ratio 18.8 (8-20); Calcium 8.3 mg/dL (8.6-10.3); EGFR African American 67.3 (>60); EGFR Non-African American 55.6 (>60); Potassium 3.5 mmol/L (3.5-5.0)
[2020-01-23] MEDS ORDERED: D5W 1000 ml BAG 1,000 ML IV SCH (17:06)
[2020-01-23] MEDS ORDERED: D5W 1000 ml BAG 1,000 ML IV ONE (18:00)
[2020-01-23 19:15] LABS: BUN/Creatinine Ratio 20.7 (8-20); Calcium 7.6 mg/dL (8.6-10.3); EGFR African American 75.4 (>60); EGFR Non-African American 62.3 (>60); Potassium 3.5 mmol/L (3.5-5.0)
[2020-01-23 22:40] LABS: Calcium 8.3 mg/dL (8.6-10.3); EGFR African American 68.1 (>60); EGFR Non-African American 56.3 (>60); Potassium 4.4 mmol/L (3.5-5.0)
[2020-01-24 02:42] LABS: BUN/Creatinine Ratio 21.3 (8-20); Calcium 8.3 mg/dL (8.6-10.3); Potassium 4.2 mmol/L (3.5-5.0)
[2020-01-24] MEDS: Heparin 5000 UNITS/ML VIAL(*) 1 ml vial SUBCUT SCH ×3 (05:37→21:34)
[2020-01-24 06:11] LABS: ABS Eosinophils 0.1 10^3/ul (0-0.6); ABS Lymphocytes 1.3 10^3/ul (1.0-4.8); ABS Monocytes 0.8 10^3/ul (0-0.8); Eosinophil % 1.6 %; Hematocrit 35 % (35-47); Lymphocyte % 19.2 %; Mean Corpuscular HGB Conc 35 g/dL (31-36); Mean Corpuscular Hemoglobin 32 pg (27-31); Mean Corpuscular Volume 92 fL (80-97); Nucleated Red Blood Cells % 0.1; Platelet Count 175 10^3/uL (150-450); Red Blood Count 3.78 10^6 /uL (3.70-4.87); Red Cell Distribution Width 13 % (10-15); White Blood Count 6.7 10^3/uL (3.5-10.8)
[2020-01-24 06:25] LABS: Albumin 3.4 g/dL (3.2-5.2); Albumin/Globulin Ratio 1.4 (1-3); BUN/Creatinine Ratio 20.7 (8-20); Calcium 8.4 mg/dL (8.6-10.3); EGFR African American 70.7 (>60); EGFR Non-African American 58.4 (>60); Globulin 2.5 g/dL (2-4); Magnesium 2.2 mg/dL (1.9-2.7); Total Bilirubin 1.1 mg/dL (0.2-1.0); Total Protein 5.9 g/dL (6.4-8.9)
[2020-01-24 06:33] LABS: Potassium 4.4 mmol/L (3.5-5.0)
[2020-01-24] MEDS: Multivitamins/Minerals TAB PO SCH (08:45)
[2020-01-24] MEDS: CMC:Letrozole 2.5 MG TAB (NF) PO SCH (08:57)
[2020-01-24] MEDS ORDERED: Dexamethasone IV 4 MG/ML VIAL 1 ml VIAL IM ONE (10:11)
[2020-01-24 14:44] LABS: Calcium 8.4 mg/dL (8.6-10.3); Potassium 4.2 mmol/L (3.5-5.0)
[2020-01-24 14:49] LABS: BUN/Creatinine Ratio 22.1 (8-20); EGFR African American 76.4 (>60); EGFR Non-African American 63.2 (>60)
[2020-01-24 19:05] LABS: BUN/Creatinine Ratio 22.8 (8-20); Calcium 8.8 mg/dL (8.6-10.3); EGFR African American 70.7 (>60); EGFR Non-African American 58.4 (>60); Potassium 4.4 mmol/L (3.5-5.0)
[2020-01-25] MEDS ORDERED: hydrALAZINE 20 mg/ml 1 ML Vial IV IV SLOW PU PRN (00:20)
[2020-01-25] MEDS ORDERED: hydrALAZINE 20 mg/ml 1 ML Vial IV ONE (00:43)
[2020-01-25 02:23] LABS: CO2 Carbon Dioxide 18 mmol/L (22-32); Calcium 8.4 mg/dL (8.6-10.3); Chloride 96 mmol/L (101-111); Sodium 122 mmol/L (135-145)
[2020-01-25 02:29] LABS: BUN/Creatinine Ratio 27.7 (8-20); Blood Urea Nitrogen 23 mg/dL (6-24); EGFR African American 79.6 (>60); EGFR Non-African American 65.8 (>60); Glucose 129 mg/dL (70-100)
[2020-01-25 02:36] LABS: Anion Gap 8 mmol/L (2-11)
[2020-01-25] MEDS: Heparin 5000 UNITS/ML VIAL(*) 1 ml vial SUBCUT SCH (05:48)
[2020-01-25] MEDS: Multivitamins/Minerals TAB PO SCH (09:21)
[2020-01-25] MEDS: Enoxaparin 40 MG/0.4 ML SYR(*) SUBCUT SCH (09:21)
[2020-01-25] MEDS: CMC:Letrozole 2.5 MG TAB (NF) PO SCH (09:21)
[2020-01-25 11:13] LABS: BUN/Creatinine Ratio 25.5 (8-20); Calcium 8.7 mg/dL (8.6-10.3); EGFR African American 65.7 (>60); EGFR Non-African American 54.3 (>60); Potassium 3.9 mmol/L (3.5-5.0)
[2020-01-25] MEDS: Ondansetron 4 mg VIAL 2 MG/ML 2 ml VIAL IV PRN (12:14)
[2020-01-25 18:27] LABS: BUN/Creatinine Ratio 26.5 (8-20); Calcium 8.7 mg/dL (8.6-10.3); EGFR African American 55.8 (>60); EGFR Non-African American 46.1 (>60); Potassium 4.1 mmol/L (3.5-5.0)
[2020-01-26 06:20] LABS: BUN/Creatinine Ratio 29.2 (8-20); Calcium 8.7 mg/dL (8.6-10.3); EGFR African American 60.1 (>60); EGFR Non-African American 49.6 (>60); Potassium 4.6 mmol/L (3.5-5.0)
[2020-01-26] MEDS: Multivitamins/Minerals TAB PO SCH (08:59)
[2020-01-26] MEDS: CMC:Letrozole 2.5 MG TAB (NF) PO SCH (09:00)
[2020-01-26] MEDS: Enoxaparin 40 MG/0.4 ML SYR(*) SUBCUT SCH (09:01)
[2020-01-26] MEDS: Ondansetron 4 mg VIAL 2 MG/ML 2 ml VIAL IV PRN (13:15)
[2020-01-26 17:43] LABS: BUN/Creatinine Ratio 27.6 (8-20); Calcium 9.1 mg/dL (8.6-10.3); EGFR African American 60.7 (>60); EGFR Non-African American 50.2 (>60); Potassium 4.2 mmol/L (3.5-5.0)
[2020-01-27 05:56] LABS: ABS Eosinophils 0.1 10^3/ul (0-0.6); ABS Lymphocytes 1.1 10^3/ul (1.0-4.8); ABS Monocytes 0.7 10^3/ul (0-0.8); Eosinophil % 1.6 %; Hematocrit 36 % (35-47); Lymphocyte % 13.9 %; Mean Corpuscular HGB Conc 34 g/dL (31-36); Mean Corpuscular Hemoglobin 32 pg (27-31); Mean Corpuscular Volume 94 fL (80-97); Mean Platelet Volume 7.9 fL (7.4-10.4); Platelet Count 150 10^3/uL (150-450); Red Blood Count 3.79 10^6 /uL (3.70-4.87); Red Cell Distribution Width 13 % (10-15)
[2020-01-27 06:17] LABS: BUN/Creatinine Ratio 28.6 (8-20); Calcium 8.8 mg/dL (8.6-10.3); EGFR African American 71.6 (>60); EGFR Non-African American 59.2 (>60); Magnesium 1.7 mg/dL (1.9-2.7); Potassium 4.5 mmol/L (3.5-5.0)
[2020-01-27] MEDS: Multivitamins/Minerals TAB PO SCH (07:51)
[2020-01-27] MEDS: Enoxaparin 40 MG/0.4 ML SYR(*) SUBCUT SCH (07:51)
[2020-01-27] MEDS: CMC:Letrozole 2.5 MG TAB (NF) PO SCH (07:52)
[2020-01-28 06:32] LABS: BUN/Creatinine Ratio 31.4 (8-20); Calcium 8.9 mg/dL (8.6-10.3); EGFR African American 76.4 (>60); EGFR Non-African American 63.2 (>60); Magnesium 1.7 mg/dL (1.9-2.7); Potassium 4.5 mmol/L (3.5-5.0)
[2020-01-28] MEDS: Enoxaparin 40 MG/0.4 ML SYR(*) SUBCUT SCH (08:42)
[2020-01-28] MEDS: CMC:Letrozole 2.5 MG TAB (NF) PO SCH (08:44)
[2020-01-28] MEDS: Multivitamins/Minerals TAB PO SCH (08:44)
[2020-01-29 06:42] LABS: BUN/Creatinine Ratio 29.1 (8-20); EGFR African American 76.4 (>60); EGFR Non-African American 63.2 (>60); Magnesium 1.7 mg/dL (1.9-2.7); Potassium 4.7 mmol/L (3.5-5.0)
[2020-01-29] MEDS: Ondansetron 4 mg VIAL 2 MG/ML 2 ml VIAL IV PRN (08:01)
[2020-01-29] MEDS: Multivitamins/Minerals TAB PO SCH (08:50)
[2020-01-29] MEDS: CMC:Letrozole 2.5 MG TAB (NF) PO SCH (08:51)
[2020-01-29] MEDS: Enoxaparin 40 MG/0.4 ML SYR(*) SUBCUT SCH (08:54)
[2020-01-29] MEDS: URE NA PO SCH (11:47)
[2020-01-30 06:54] LABS: BUN/Creatinine Ratio 45.4 (8-20); EGFR African American 52.5 (>60); EGFR Non-African American 43.4 (>60); Potassium 4.8 mmol/L (3.5-5.0)
[2020-01-30] MEDS: CMC:Letrozole 2.5 MG TAB (NF) PO SCH (08:53)
[2020-01-30] MEDS: URE NA PO SCH (08:53)
[2020-01-30] MEDS: Multivitamins/Minerals TAB PO SCH (08:53)
[2020-01-30] MEDS: Enoxaparin 40 MG/0.4 ML SYR(*) SUBCUT SCH (08:54)
[2020-01-30 13:09] VITALS: BP 144/45
== END 2020-01-30 16:35 | disposition home or self-care (01) | DRG 645 ==
LOC: ED 21:23 → ICU 01-23 00:18 → MEDTELE 01-24 12:31
PROVIDERS: ADMIT Pediatrics; ATTEND Internal Medicine